=== PATIENT | female | born 2000 | race Caucasian/White ===

== ENCOUNTER 2023-09-04 10:01 | Emergency (ER) | payer OTHER, SELFPAY ==
[2023-09-04 10:06] VITALS: BP 133/93; PULSE 116; RESP 20; TEMP 37.2; O2SAT 98; BMI 34.7
[2023-09-04 10:24] LABS: Internal Control Within Normal Limits; Strep A Antigen Screen Negative
--- NOTE | 2023-09-04 11:01 | ED_ITS ---
HPI - General Adult General Chief complaint: Upper Respiratory Infection Stated complaint: SHORTNESS OF BREATH Time Seen by Provider: 09/04/23 10:05 Source: patient Mode of arrival: walk-in Limitations: no limitations History of Present Illness HPI narrative: Presenting with 48 hours history of bilateral ear pain associated with sore throat and change in her voice, the patient still able to hydrate and eat no [place] no vomiting that is acute at the moment no diarrhea The patient have no exposure to anybody with similar symptoms she did not record any fever at home Related Data Home Medications Medication Instructions Recorded Confirmed cefdinir 300 mg capsule 300 mg PO Q12H 09/04/23 09/04/23 escitalopram oxalate 10 mg tablet 10 mg PO DAILY 09/04/23 09/04/23 etonogestrel 0.12 mg-ethinyl See Rx Instructions vaginal 09/04/23 09/04/23 estradiol 0.015 mg/24 hr vaginal .COMPLEX ring (EluRyng) pantoprazole 40 mg tablet,delayed 40 mg PO DAILY 09/04/23 09/04/23 release Previous Rx's Medication Instructions Recorded amoxicillin 875 mg-potassium 1 tab PO Q12H #20 tabs 09/04/23 clavulanate 125 mg tablet Allergies Allergy/AdvReac Type Severity Reaction Status Date / Time No Known Drug Allergies Allergy Verified 09/04/23 10:05 Review of Systems ROS Status of ROS 10 or more systems reviewed and unremarkable except as noted in history and below PFSH PFS Social History Smoking status: Heavy tobacco smoker Exam Narrative Exam Narrative: Nurses notes and vital signs reviewed and patient is not hypoxic. General: Well-appearing and in no apparent distress. Skin: Warm, dry, no pallor noted. No rash. Head: Normocephalic, atraumatic. Neck: Supple, non-tender. Eye: Pupils are equal, round and EOMI. No scleral icterus. Ears, Nose, Mouth, and Throat: TM patient patient tympanic membrane shows bulging with serous fluid behind them in both sides the patient also had nasal congestion and the patient also had bilateral tonsillar erythema and exudate noted mostly on the left side although there is no uvula deviation Cardiovascular: Regular Rate and Rhythm without murmur, gallop or rub. Respiratory: No accessory muscle use or respiratory distress. Lungs are clear to auscultation, no wheezing, rales or rhonchi Chest Wall: no tenderness Back: No midline thoracic or lumbar vertebral tenderness. No CVA tenderness Musculoskeletal: normal ROM, no calf or popliteal tenderness, no lower extremity edema/swelling GI: Abdomen is soft, non-distended. Normal bowel sounds. No masses appreciated. No tenderness to palpation. No rebound, guarding, or rigidity noted. Neurological: A&O x4. No cranial nerve dysfunction observed. No truncal ataxia. Moves all extremities. Sensation intact. Psychiatric: Cooperative and interactive. Normal mood and affect. Constitutional Vital Signs, click to edit/add: Last Vital Signs Temp 98.9 F 09/04/23 10:06 Pulse 116 H 09/04/23 10:06 Resp 20 09/04/23 10:06 BP 133/93 H 09/04/23 10:06 Pulse Ox 98 09/04/23 10:06 Course Vital Signs Vital signs: Vital Signs Temperature 98.9 F 09/04/23 10:06 Pulse Rate 116 H 09/04/23 10:06 Respiratory Rate 20 09/04/23 10:06 Blood Pressure 133/93 H 09/04/23 10:06 Pulse Oximetry 98 09/04/23 10:06 Temperature 98.9 F 09/04/23 10:06 Pulse Rate 116 H 09/04/23 10:06 Respiratory Rate 20 09/04/23 10:06 Blood Pressure 133/93 H 09/04/23 10:06 Pulse Oximetry 98 09/04/23 10:06 Medical Decision Making [facility] Narrative Medical decision making narrative: The patient strep test is negative although her presentation is highly suspicious of strep tonsillitis she also have otitis media she will be treated with Augmentin It was noted that she already had cefdinir in her medication but she was instructed not to use cefdinir but use Augmentin at the moment The patient is to follow up with primary care physician in next 2-3 days or to return to the emergency department should any of the signs or symptoms worsen or new symptoms develop. The patient agrees with the following Diagnosis and Treatment plan and the patient will be discharged home. Lab Data Labs: Lab Results 09/04/23 Range/Units 10:10 Streptococcus Screen Negative Discharge Plan Discharge Chief Complaint: Upper Respiratory Infection Clinical Impression: Acute tonsillitis, Otitis media Patient Disposition: Home, Self-Care Time of Disposition Decision: 10:32 Condition: Good Mode of Transportation: Private Vehicle Prescriptions / Home Meds: New amoxicillin-pot clavulanate 875-125 mg tablet 1 tab PO Q12H Qty: 20 0RF No Action escitalopram oxalate 10 mg tablet 10 mg PO DAILY etonogestrel-ethinyl estradiol [EluRyng] 0.12-0.015 mg/24 hr ring See Rx Instructions VAGINAL .COMPLEX Rx Instructions: vaginally every three weks; pantoprazole 40 mg tablet,delayed release (DR/EC) 40 mg PO DAILY cefdinir 300 mg capsule 300 mg PO Q12H Instructions: Ear Infection (ED), Tonsillitis (ED) Stand Alone Forms: Portal Instructions Referrals: MANUEL GIBSON [Primary Care Provider] - 1 week Discharge Date/Time: 09/04/23 10:37
[2023-09-04 11:12] LABS: SARS-CoV-2 Ag NEGATIVE (NEGATIVE)
[2023-09-05 14:10] LABS: SARS-CoV-2 NAA INVALID (NOT DETECTE)
== END 2023-09-04 10:37 | disposition home or self-care (01) ==
PROVIDERS: Emergency Provider Emergency Medicine; PCP Nurse Practitioner Family
DX: J03.90 Acute tonsillitis, unspecified (principal); H66.90 Otitis media, unspecified, unspecified ear; Z79.899 Other long term (current) drug therapy; F17.210 Nicotine dependence, cigarettes, uncomplicated; Z20.822 Contact with and (suspected) exposure to COVID-19
CPT/HCPCS: 87070; 87635; 87811; 87880; 99283

== ENCOUNTER 2023-12-21 16:49 | Outpatient (RCR) | payer OTHER, SELFPAY | END 2023-12-22 13:04 | disposition home or self-care (01) | LOC: PT 16:49 | PROVIDERS: PCP Nurse Practitioner Family; Visit Provider Nurse Practitioner Family | DX: M54.9 Dorsalgia, unspecified (principal); G89.29 Other chronic pain | CPT/HCPCS: 97161 ==

== ENCOUNTER 2023-12-22 09:52 | Emergency (ER) | payer OTHER, SELFPAY ==
[2023-12-22 10:02] VITALS: BP 164/85; PULSE 80; RESP 18; TEMP 36.6; O2SAT 100; BMI 37.8
--- OUTSIDE RECORDS SUMMARY | 2023-12-22 10:17 | XMS_ITS | CCD ---
Author Name Unknown Address [id number] [place] [address] Organization [facility] Care Team Providers Care 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 Name Role Phone Kishor Fraga Unavailable Unavailable Federico Ashby Unavailable Unavail able Federico Ashby Unavailable Carey Gibson, USER SUPPORT ANALYST SUPERVISOR-C Lalitha Jeffers Primary Care Provider MD Christy Maher Jr Emergency Provider LALITHA GIBSON Primary Care Unavailable TRENA, DR FLANAGAN Attending Unavailable TRENA, DR FLANAGAN Admitting Unavailable TRENA, DR FLANAGAN Admitting Unavailable TRENA, DR FLANAGAN Consulting Unavailable LALITHA GIBSON Primary Care Unavailable TRENA, DR FLANAGAN Attending Unavailable TRENA, DR FLANAGAN Admitting Unavailable LALITHA GIBSON Primary Care Unavailable TRENA, DR FLANAGAN Attending Unavailable LALITHA GIBSON Primary Care Unavailable HERIBERTO, DR CHARLY Rushing Consulting Unavailable HERIBERTO, DR CHARLY Rushing Attending Unavailable HERIBERTO, DR CHARLY Rushing Admitting Unavailable Torres ROLLINS Referring Unavailable Unavailable Primary Care Provider UnavailLalitha Johnston Primary Care Provider CHRISTY DIAS Attending Unavailable LALITHA GIBSON Primary Care Unavailable Medications Current Medications Medication Drug Class(es) Dates Sig (Normalized) Sig (Original) acetaminophen 325 mg / HYDROcodone bitartrate 5 mg oral tablet (1 source) Opioid Agonist Start: 06-01-2022 take 1 tablet by mouth every six hours Hydrocodone-Acet aminophen Active 1 TAB PO Q6H 10 3 June 01, 2022 FLUoxetine 20 mg oral capsule (1 source) Serotonin Reuptake Inhibitor Start: 06-01-2022 take 20 mg by mouth once daily Fluoxetine Active 20 MG PO Daily June 01, 2022 12:00am ibuprofen 600 mg oral tablet (1 source) Nonsteroidal Anti-inflammatory Drug Start: 06-01-2022 take 600 mg by mouth every eight hours Ibuprofen Active 600 MG PO Q8H 20 June 01, 2022 12:00am Problems Active Problems Problem Classification Problem Date Documented Da te Episodic/Chronic Abdominal pain (4 sources) Left upper quadrant pain; Translations: [LEFT UPPER QUADRANT PAIN] Onset: 10-23-2022 Episodic Cardiac and circulatory congenital anomalies (2 sources) Coarctation of aorta; Translations: [Coarctation of aorta] Onset: 12-16-2023 12-16-2023 Chronic Coronary atherosclerosis and other heart disease (1 source) Presence of aortocoronary bypass graft; Translations: [Presence of aortocoronary bypass graft] Onset: 12-16-2023 Episodic Nausea and vomiting (1 source) Vomiting, unspecified; Translations: [VOMITING UNSPECIFIED] Onset: 10-24-2022 Episodic Sprains and strains (1 source) Sprain of ankle; Translations: [Sprain of unspecified ligament of right ankle, initial encounter] 06-01-2022 Episodic Substance-related disorders (1 source) Cannabis use, unspecified, uncomplicated; Translations: [CANNABIS USE UNS UNCOMPLICATED] Onset: 10-24-2022 Episodic Unclassified (1 source) New Patient Onset: 12-16-2023 Urinary tract infections (1 source) Urinary tract infection, site not specified; Translations: [UTI SITE NOT SPECIFIED] Onset: 10-24-2022 Episodic Past or Other Problems Problem Classification Problem Date Documented Da te Episodic/Chronic Residual codes; unclassified (4 sources) Other amnesia; Translations: [OTHER AMNESIA] Onset: 02-27-2022 Episodic Results Test Name Value Interpretation Reference Range Facility [facility] Documents[facility] 10-02-2023 [facility] Documents [id number] Normal [facility] Documentson 06-25-2023 [facility] Documents [id number]#[id number]:127 Normal [facility] CULTURE URINEon 10-23-2022 CULTURE URINE Culture Observations : NO GROWTH. Normal The [facility] Comment on above: Performed By: #### U RCX #### [facility] [address] [address] [address] Donald Schroeder ER URINE PROFILEon 2 Bilirubin Ql (U) MODERATE Abnormal NEGATIVE The [facility] Comment on above: Performed By: #### U MICRO, ERUR, PREGU #### [facility] [address] [address] [address] Donald Schroeder Clarity (U) CLEAR Normal CLEAR [facility] Comment on above: Performed By: #### U MICRO, ERUR, PREGU #### [facility] [address] [address] [address] Donald Schroeder Color (U) YELLOW Normal YELLOW [facility] Comment on above: Performed By: #### U MICRO, ERUR, PREGU #### [facility] [address] [address] [address] Donald JARRETTAHD A micrscopic examina tion will be performed if indicated. Normal [facility] Comment on above: Performed By: #### U MICRO, ERUR, PREGU #### [facility] [address] [address] [address] Donald Schroeder Glucose Ql (U) Negative Normal NEGATIVE The [facility] Comment on above: Performed By: #### U MICRO, ERUR, PREGU #### [facility] [address] [address] [address] Donald Schroeder Hemoglobin Ql (U) Negative Normal NEGATIVE The [facility] Comment on above: Performed By: #### U MICRO, ERUR, PREGU #### [facility] [address] [address] [address] Donald Schroeder Ketones Ql (U) TRACE Abnormal NEGATIVE The [facility] Comment on above: Performed By: #### U MICRO, ERUR, PREGU #### [facility] [address] [address] [address] Donald Schroeder LEUKOCYTES Negative Normal NEGATIVE [facility] Comment on above: Performed By: #### U MICRO, ERUR, PREGU #### [facility] [address] [address] [address] Donald Schroeder Nitrite Ql (U) Negative Normal NEGATIVE The [facility] Comment on above: Performed By: #### U MICRO, ERUR, PREGU #### [facility] [address] [address] [address] Donald Schroeder pH (U) 5.0 [pH] Normal 5-9 [facility] Comment on above: Performed By: #### U MICRO, ERUR, PREGU #### [facility] [address] [place] [address] Dr. Donald Schroeder Protein (U) [Mass/Vol] 30 mg/dL Abnormal NEGATIVE/ TRACE The [facility] Comment on above: Performed By: #### U MICRO, ERUR, PREGU #### [facility] [address] [place] [address] Dr. Donald Schroeder SPEC GRAVITY >=1.030 Abnormal 1.005-<=1.0 25 [facility] Comment on above: Performed By: #### U MICRO, ERUR, PREGU #### [facility] [address] [place] [address] Dr. Donald Schroeder UR MICRO IND INDICATED Normal [facility] Comment on above: Performed By: #### U MICRO, ERUR, PREGU #### [facility] [address] [place] [address] Dr. Donald Schroeder Urobilinogen Qn (U) 1.0 {Miguelina'U}/dL Normal 0.2 - 1.0 The [facility] Comment on above: Performed By: #### U MICRO, ERUR, PREGU #### [facility] [address] [place] [address] Dr. Donald Schroeder URon 10-23-2022 , QUAL Negative Normal NEGATIVE The [facility] Comment on above: Performed By: #### U MICRO, ERUR, PREGU #### [facility] [address] [place] [address] Dr. Donald Schroeder URINE MICROSCOPIC ONLYon BACTERIA MODERATE Abnormal NONE SEEN The [facility] Comment on above: Performed By: #### U MICRO, ERUR, PREGU #### [facility] [address] [place] [address] Dr. Donald Schroeder Bacteria identified Cx Nom (U) INDICATED Normal [facility] Comment on above: Performed By: #### U MICRO, ERUR, PREGU #### [facility] [address] [address] [address] Donald Schroeder CAST SEEN Abnormal NONE SEEN [facility] Comment on above: Performed By: #### U MICRO, ERUR, PREGU #### [facility] [address] [place] [address] Dr. Donald Schroeder Crystals LM Nom (Urine sed) NONE SEEN Normal NONE SEEN The [facility] Comment on above: Performed By: #### U MICRO, ERUR, PREGU #### [facility] [address] [place] [address] Dr. Donald Schroeder Epithelial cells LM Ql (Urine sed) FEW Abnormal NONE SEEN /RARE The [facility] Comment on above: Performed By: #### U MICRO, ERUR, PREGU #### [facility] [address] [place] [address] Dr. Donald Schroeder HYALINE CAST RARE Normal The [facility] Comment on above: Performed By: #### U MICRO, ERUR, PREGU #### [facility] [address] [place] [address] Dr. Dnoald Schroeder MUCOUS MODERATE Abnormal NONE SEEN The [facility] Comment on above: Performed By: #### U MICRO, ERUR, PREGU #### [facility] [address] [place] [address] Dr. Donald Schroeder RBC 2-5 Abnormal 0-2 The [facility] Comment on above: Performed By: #### U MICRO, ERUR, PREGU #### [facility] [address] [place] [address] Dr. Donald Schroeder WBC 5-10 Abnormal NONE SEEN The [facility] Comment on above: Performed By: #### U MICRO, ERUR, PREGU #### [facility] [address] [place] [address] Dr. Donald Schroeder XR ankle RT min 3V*on 2021 XR ankle RT min 3V* [facility] [place] [address] [place] [address] XRay Report Signed Patient: Betsy Sawyer MR#: [id number] 26 : 2000 Acct:[id number] Age/Sex: 21 / F ADM Date: 06/01/22 Loc: ER Room: Type: [facility] ER Attending Dr: Copies to: Christy Maher Jr, MD Ordering Provider: Christy Maher Jr, MD Date of Service: 06/01/22 XR/XR ankle RT min 3V*: Extremity Injury, Lower 3views Rightankle COMPARISON:None HISTORY: RIGHT ankle injury. Swelling. There is lateral soft tissue prominence. No fracture or dislocation seen. Ankle mortise preserved. XR/XR ankle RT min 3V* IMPRESSION: No acute fracture. Impression dictated by: Osman Polanco M.D.06/02/2022 8:43 AM Dictation Location: [place] [address] Transcribed By: [facility] 06/02/22 0843 Dictated By: Osman Polanco DO 06/02/22 0841 Signed By: 06/02/22 0843 Normal [facility] TSHon 02-27-2022 TSH 1.662 uIU/mL Normal 0.470-4.680 [facility] Comment on above: Performed By: #### T SH #### [facility] [address] [place] [address] Dr. Donald Schroeder TSH RANGE SEE BELOW Normal [facility] Comment on above: Result Comment: <0.3 4 UIU/ml HYPERTHYROID 0.34-5.60 UIU/ml EUTHYROID >5.60 UIU/ml HYPOTHYROID Performed By: #### T SH #### [facility] [address] [place] [address] Dr. Donald Schroedre VIT B12 AND FOLATEon 022 Cobalamin (Vitamin B12) [Mass/Vol] 269.0 pg/mL Normal 239.0-931.0 [facility] Comment on above: Performed By: #### B 12FOL #### [facility] [address] [address] [address] Donald Schroeder FOLATE 19.80 ng/mL Normal 8.60-58.90 [facility] Comment on above: Performed By: #### B 12FOL #### [facility] [address] [address] [address] Donald Schroeder Echocardiogram - PEDSon 06- Echocardiogram - PEDS RBC [facility] Pediatric Echo/ [id number] [facility] , [address], [place] [address] Patient Name: BETSY SAWYER [facility] Date: 04[facility]14[facility] Patient Status: OutpatientMRN/PID: [id number] Study Type: Echocardiogram - PEDSDate of : 2000 17 years Height/Weight: 165.00 cm / 84.10 kgGender: F BSA: 1.91 m2 Blood Pressure: 130 / 78 mmHgReading Physician: Maricel Luke MDRequested By: Kishor Fraga MDSonographer: Rachel Lombardo [facility] Diagnosis/ICD: Q25.1-Coarctation of aorta Indications: Coarctation s/p repair Procedure/CPT: 38451 Echocardiography-TTE Congenital Complete OR;73005 Echocardiography-Color Doppler Echo;69867 Echocardiography-Doppler Echo History:Co arctation of the aorta status post repair with primary end-to-end anastamosis (06/25/2005). Summary:Complete echocardiogram examination with two-dimensional imaging, M-mode, color-Doppler, and spectral Doppler was performed. 1. Trivial mitral valve regurgitation.2. Normal right ventricular size and systolic function.3. Left ventricular systolic function is hyperdynamic. Ejection fraction, calculated from the m-mode parasternal view, is 75 %. Qualitatively normal left ventricular size in the setting of a mildly increased left ventricular mass. Normal left ventricular mass indexed to heigh to the power of 2.7. There is a false tendon at the left ventricular apex without evidence of obstruction to flow.4. The area of coarctation repair is widely patent by two-dimensional and color Doppler imaging. Flow acceleration through the aortic arch starts at the level of the transverse aorta which is mildly hypoplastic. The peak gradient through the aortic arch is 26 mmHg, mean gradient 14 mmHg.Segmental Anatomy, Cardiac Position and Situs:{S,D,S}. The heart position is within the left hemithorax. The cardiac apex is oriented leftward. The aorta is to the right of the pulmonary artery.Systemic Veins:The superior vena cava is right-sided and drains normally to the right atrium.Pulmonary Veins:One right-sided pulmonary vein is seen entering the left atrium.Atria:Imaging is inadequate to rule out an atrial septal defect. The right atrium is normal in size. The left atrium is normal in size.Mitral Valve:The mitral valve is normal. Normal mitral valve Doppler pattern. There is no evidence of mitral valve stenosis. The papillary muscle configuration appears normal. There is trivial mitral valve regurgitation.Tricuspid Valve:The tricuspid valve is normal. Normal tricuspid valve Doppler pattern. There is trivial tricuspid valve regurgitation. There is no evidence of tricuspid valve stenosis. Unable to estimate the right ventricular systolic pressure from the tricuspid regurgitant jet.Left Ventricle:Left ventricular systolic function is hyperdynamic. Ejection fraction, calculated from the m-mode parasternal view, is 75 %. Qualitatively normal left ventricular size in the setting of a mildly increased left ventricular mass. Normal left ventricular mass indexed to heigh to the power of 2.7. There is a false tendon at the left ventricular apex without evidence of obstruction to flow.Right Ventricle:Qualitatively normal right ventricular size and normal systolic function.Ventricular Septum:Imaging is inadequate to rule out a ventricular septal defect, but no defect seen.Aortic Valve:The aortic valve is normal and tricommissural. Normal aortic valve Doppler pattern. There is no aortic valve stenosis. There is no aortic valve regurgitation.Left Ventricular Outflow Tract:There is no left ventricular outflow tract obstruction.Pulmonary Valve:The pulmonary valve is normal. Normal pulmonary valve Doppler pattern. There is no pulmonary valve stenosis. There is no pulmonary valve regurgitation.Right Ventricular Outflow Tract:There is no right ventricular outflow tract obstruction.Aorta:The aortic root is normal in size. Left aortic arch with normal branching. There is a normal sized ascending aorta. There is normal Doppler pattern in the aorta. The area of coarctation repair is widely patent by two-dimensional and color Doppler imaging. Flow acceleration through the aortic arch starts at the level of the transverse aorta which is mildly hypoplastic. The peak gradient through the aortic arch is 26 mmHg, mean gradient 14 mmHg.Coronary Arteries:The coronary arteries were not evaluated.Pericardium:There is no pericardial effusion. LV (M-mode) Z-scoreIVSd: 0.87 cm -0.98LVIDd: 5.00 cm -0.58LVIDs: 2.79 cm -1.56LVPWd: 0.70 cm -1.96LV mass (ASE valentino.): 131.77 g -1.83LV mass index: 42.42 g/m2.7 LV (2D)LV epi area, d: 30.89 cm2LV endo area, d: 19.57 cm2LV major d, A4C: 8.03 cmLV mass (AL): 96.83 gLV mass index: 50.57 g/m2 Left Ventricular Systolic Function LV SF (M-mode): 44 % 2D measurements Z-scoreAortic Valve Annulus: 1.86 cm -1.76Aorta Root s: 2.50 cm -1.43Ascending Aorta: 2.44 cm -0.76Transverse Aorta: 1.01 cm -3.82 Time out was performed prior to the echocardiogram. The patient was identified by name, medical record number and date of . Maricel Luke MD*Electronically signed on 04/14/2018 at 12:15:52 PM Final Normal [facility] Peds Cardiology - 4- y/oon 04-14-2018 Peds Cardiology - 89 y/o Chief ComplaintNew patient visit, S/P coar repair. Accompanied by mother. History of Present IllnessBetsy Sawyer is a 17 year old female who was referred by Dr. Stoll to the [facility] of [facility] for evaluation of elevated blood pressure, s/p coarctation of aorta repair. Betsy is accompanied today by her mother. I have reviewed the available medical record as it pertains to the chief complaint and have summarized the pertinent information in this HPI. Specifically, Betsy's mother reports elevated blood pressure noted in the past 2 weeks. On April 09, Betsy had complaints of chest tightness, mild shortness of breath and feeling her heart pulsing at rest, mother took her blood pressure and it was recorded to be 159/75. Mother repeated Betsy's blood pressure on 04/13/18 and it was noted to be 135/88. Mother reports Andrew blood pressure has not been elevated recently at PCP appointments, last seen by PCP last year. Per report, Betsy also has shortness of breath with activity, which has worsened in the last 1-2 months. Per report, Betsy is not very physically active, but has noticed increased shortness of breath while jumping on trampoline. Mother notes Betsy has had recent weight gain. Per report, Betsy has has a single episode of palpitations which was associated with dizziness, had a sudden onset, last >5 minutes with sudden stop. Betsy has a past history of coarctation of aorta repair at age 4 at [facility]. Betsy was followed by Dr. Romero post surgery until 2007 when mother transferred care to [place] as it is closer to their home. Mother cannot remember the name of the sample book maker in [place], but was told to follow up in 5 years, mother states it has been >5 years since last cardiology appointment. Per report, Betsy was on antihypertensives post repair until age 5 when blood pressure normalized and Betsy has not been on medication since. Betsy denies additional complaints of or signs of symptoms related to the cardiovascular system, specifically chest pains either at rest or with exertion, syncope, near syncope, or a decreased tolerance to activity. Patients parent denies a history of difficulty with feeds, growth, or meeting milestones as an . History: Previous Hospitalizations: None Previous Surgeries: Coarctation of aorta repair 2003Other Chronic Conditions: None Medications: IUDAllergies: No known drug allergies Social History: Lives with motherSiblings: Family History: Mother, father, maternal grandmother and maternal grandfather with hypertension. 3 paternal uncles with history of strokes. Paternal great uncle with history of heart transplant, mother unsure of diagnosis, great uncle after heart transplant. There is no significant family history of heart attacks below 50 years of age, and no known early coronary artery disease in a first degree relative. There is no known family history of congenital heart disease, sudden cardiac or unexplained , seizures, congenital deafness, arrhythmias, pacemakers, defibrillators, cardiomyopathy, or known Long QT. I have reviewed the available medical records as they pertain to her preventive cardiovascular health and have questioned the parents as appropriate regarding her preventive cardiovascular health. Specifically:1. Blood Pressure- Her blood pressure today is normal on manual recheck and plots to less than the 95th percentile for age/height. No historical blood pressure measurements are very available for review.2. Lipid Screening- She has not undergone appropriate lipid screening per the current universal screening guidelines and as endorsed by the AAP. I have provided a requisition for a fasting lipid panel to be obtained at the family's convenience.3. BMI- Her BMI plots to greater than the 95th percentile. A healthy diet and exercise regimen were discussed as part of a healthy lifestyle. There are no historical blood pressure measurements available for review. Review of SystemsPlease see scanned patient intake form for full 10 system review of systems. Of note, Goins with complaints of weight gain, shortness of breath, irregular heart beat and dizziness as described in HPI. All other systems were negative Active Problems S/P repair of coarctation of aorta (V13.65) (Z87.74) Surgical History History of Aortic Coarctation Repair Family History Family history of hypertension (V17.49) (Z82.49) Family history of hypertension (V17.49) (Z82.49) Family history of hypertension (V17.49) (Z82.49) Family history of hypertension (V17.49) (Z82.49) Social History Completed 11th grade Lives with mother Allergies No Known Drug Allergies Recorded By: Astrid Holder; 04/14/2018 11:34:18 AM Current Meds No Reported Medications Recorded RADHA = N; Record; Last Updated By: Astrid Holder; 04/14/2018 11:34:18 AM Vitals Vital Signs Printed in Appendix #1 below. Physical ExamConstitutional: General appearance: Abnormal. Obese female. Head, Eyes, Ears, Nose and Throat: Grossly normal Neck: Supple, no significant adenopathy. Chest: Lungs clear to auscultation bilaterally. No crackles or rhonchi noted. Cardiovascular: The heart rate was normal. The rhythm was regular. normal S1, normal S2, no gallop, no S3, no S4 and no click. Murmur Detail: no murmurs were heard. Extremities: normal 2+ radial pulses bilaterally. no edema. normal capillary refill. Abdomen:. soft, non-tender, no masses. no hepatomegaly. Exam somewhat limited by body habitus. Musculoskeletal: muscle strength and tone is normal. Skin: no significant rash or lesions. Psychiatric: normal parent/child interaction. an ECHO was done, see scanned results. Results/Data Echocardiogram - [id number] 11:09Kishor Abbott Test NameResultFlagReferencePeds Echocardiogram(Report)1.3.12.2 .[id number] [facility] Pediatric Echo/ Lab [address] [facility] , [address], [place] [address] Patient Name: BETSY SAWYER Study Location: [facility] Study Date: 04/14/2018 Patient Status: Outpatient MRN/PID: [id number] Study Type: Echocardiogram - PEDS Date of : 2000 Age: 17 years Height/Weight: 165.00 cm / 84.10 kg Gender: F BSA: 1.91 m2 Blood Pressure: 130 / 78 mmHg Reading Physician: Maricel Luke MD Requested By: Kishor Fraga MD Bag Printer: Rachel Lombardo [facility] Diagnosis/ICD: Q25.1-Coarctation of aorta Indications: Coarctation s/p repair Procedure/CPT: 31543 Echocardiography-TTE Congenital Complete OR;04716 Echocardiography-Color Doppler Echo;74738 Echocardiography-Doppler Echo History: Coarctation of the aorta status post repair with primary end-to-end anastamosis (06/25/2005). Summary: Complete echocardiogram examination with two-dimensional imaging, M-mode, color-Doppler, and spectral Doppler was performed. 1. Trivial mitral valve regurgitation. 2. Normal right ventricular size and systolic function. 3. Left ventricular systolic function is hyperdynamic. Ejection fraction, calculated from the m-mode parasternal view, is 75 %. Qualitatively normal left ventricular size in the setting of a mildly increased left ventricular mass. Normal left ventricular mass indexed to heigh to the power of 2.7. There is a false tendon at the left ventricular apex without evidence of obstruction to flow. 4. The area of coarctation repair is widely patent by two-dimensional and color Doppler imaging. Flow acceleration through the aortic arch starts at the level of the transverse aorta which is mildly hypoplastic. The peak gradient through the aortic arch is 26 mmHg, mean gradient 14 mmHg. Segmental Anatomy, Cardiac Position and Situs: {S,D,S}. The heart position is within the left hemithorax. The cardiac apex is oriented leftward. The aorta is to the right of the pulmonary artery. Systemic Veins: The superior vena cava is right-sided and drains normally to the right atrium. Pulmonary Veins: One right-sided pulmonary vein is seen entering the left atrium. Atria: Imaging is inadequate to rule out an atrial septal defect. The right atrium is normal in size. The left atrium is normal in size. Mitral Valve: The mitral valve is normal. Normal mitral valve Doppler pattern. There is no evidence of mitral valve stenosis. The papillary muscle configuration appears normal. There is trivial mitral valve regurgitation. Tricuspid Valve: The tricuspid valve is normal. Normal tricuspid valve Doppler pattern. There is trivial tricuspid valve regurgitation. There is no evidence of tricuspid valve stenosis. Unable to estimate the right ventricular systolic pressure from the tricuspid regurgitant jet. Left Ventricle: Left ventricular systolic function is hyperdynamic. Ejection fraction, calculated from the m-mode parasternal view, is 75 %. Qualitatively normal left ventricular size in the setting of a mildly increased left ventricular mass. Normal left ventricular mass indexed to heigh to the power of 2.7. There is a false tendon at the left ventricular apex without evidence of obstruction to flow. Right Ventricle: Qualitatively normal right ventricular size and normal systolic function. Ventricular Septum: Imaging is inadequate to rule out a ventricular septal defect, but no defect seen. Aortic Valve: The aortic valve is normal and tricommissural. Normal aortic valve Doppler pattern. There is no aortic valve stenosis. There is no aortic valve regurgitation. Left Ventricular Outflow Tract: There is no left ventricular outflow tract obstruction. Pulmonary Valve: The pulmonary valve is normal. Normal pulmonary valve Doppler pattern. There is no pulmonary valve stenosis. There is no pulmonary valve regurgitation. Right Ventricular Outflow Tract: There is no right ventricular outflow tract obstruction. Aorta: The aortic root is normal in size. Left aortic arch with normal branching. There is a normal sized ascending aorta. There is normal Doppler pattern in the aorta. The area of coarctation repair is widely patent by two-dimensional and color Doppler imaging. Flow acceleration through the aortic arch starts at the level of the transverse aorta which is mildly hypoplastic. The peak gradient through the aortic arch is 26 mmHg, mean gradient 14 mmHg. Coronary Arteries: The coronary arteries were not evaluated. Pericardium: There is no pericardial effusion. LV (M-mode) Z-score IVSd: 0.87 cm -0.98 LVIDd: 5.00 cm -0.58 LVIDs: 2.79 cm -1.56 LVPWd: 0.70 cm -1.96 LV mass (ASE valentino.): 131.77 g -1.83 LV mass index: 42.42 g/m2.7 LV (2D) LV epi area, d: 30.89 cm2 LV endo area, d: 19.57 cm2 LV major d, A4C: 8.03 cm LV mass (AL): 96.83 g LV mass index: 50.57 g/m2 Left Ventricular Systolic Function LV SF (M-mode): 44 % 2D measurements Z-score Aortic Valve Annulus: 1.86 cm -1.76 Aorta Root s: 2.50 cm -1.43 Ascending Aorta: 2.44 cm -0.76 Transverse Aorta: 1.01 cm -3.82 Time out was performed prior to the echocardiogram. The patient was identified by name, medical record number and date of . Maricel Luke MD *Electronically signed on 04/14/2018 at 12:15:52 PM Final #1 echocardiogramAn echocardiogram was indicated at today's visit.The indication for this study was: History of coarctation of the aortaI have personally reviewed the obtained images and it is my personal preliminary interpretation that the study demonstrates the following:- The aortic arch and isthmus appear widely patent with no evidence of obstruction- The left ventricle appears qualitatively normal in terms of its size- Otherwise normal cardiac structure and function Diagnoses/Problems S/P repair of coarctation of aorta (V13.65) (Z87.74) Palpitations (785.1) (R00.2) Orders Avoid foods and beverages that contain caffeine.; Status:Complete - RetrospectiveAuthorization; Done: 14Apr2018 Last Updated By:Astrid Holder; 04/14/2018 11:32:46 AM;Ordered; For:Health Maintenance; Ordered By:Kishor Fraga; Lipid Panel; Source:Blood ([facility]); Status:Active; Requested for:14Apr2018; Perform:Lab Services - Lab To Draw (Blood Test); Due:[id number];Ordered; For:Health Maintenance; Ordered By:Kishor Fraga; Provider Impressions#1 history of coarctation of the aorta (status post repair)#2 elevated blood pressure measurements without diagnosis of hypertension#3 palpitationsWith regard to her single episode of palpitations, given that it only occurred one time and that her tachycardia experienced a gradual offset with no other associated symptoms I do not believe that this is particularly suspicious for an arrhythmia. Accordingly, I have recommended that we continue to monitor her for recurrence and if she experiences another episode I will consider ECG monitoring at that time. She should notify my office of any recurrence of these symptoms.With regard to her recent elevated blood pressure measurements, I have some suspicion that this may be due to poor blood pressure cuff calibration of her home blood pressure cuff. Her blood pressure today on manual recheck was well within normal limits. I have advised them to check the calibration on her home cuff and to notify me if they continue to have elevated blood pressure readings despite appropriate calibration. If they continue have elevated blood pressure readings I will recommend proceeding with an ambulatory blood pressure monitor to accurately assess her blood pressure in the home setting before considering medication management. Her mother should keep a log of her blood pressures at home and send them to me in the next 2-3 weeks for review.With regard to her coarctation of the aorta, her echocardiogram today demonstrates a widely patent aortic arch and isthmus with no significant obstruction. In addition, her left ventricle appears normal in terms of its size and function. Accordingly, I'll plan to see her back in one year for a repeat evaluation and echocardiogram to reassess her aortic arch. If her blood pressure necessitates earlier follow-up and we will arrange that as indicated. If she develops any concerning signs, symptoms or questions in the interim I'll be happy to see her sooner for a repeat evaluation as well.Plan:- No SBE is prophylaxis is indicated based on current guidelines- No activity restrictions are indicated- Lipid Screening is indicated and I have provided a requisition so that a fasting lipid panel will be obtained at the family's convenience.- Please make sure you're home blood pressure cuff is calibrated appropriately- Please keep a log of blood pressures over the next 2-3 weeks and then contact me with the results of that I may review them personally- If home blood pressures remain elevated then I will likely recommend ambulatory blood pressure monitoring to accurately evaluate her blood pressures.- I will plan to see her back in one year for a repeat evaluation and echocardiogram or sooner if her blood pressure necessitates earlier evaluation. In addition, she develops any concerning signs, symptoms or questions are be happy to see her sooner for a repeat evaluation as well.- Please notify my office if you develop recurrence of your palpitations so that appropriate workup can be undertaken.- Please consume a healthy diet and participate in regular physical activity as part of a heart healthy lifestyle.- Please contact my office with any concerns or questions Patient Discussion/Summary#1 history of coarctation of the aorta (status post repair)#2 elevated blood pressure measurements without diagnosis of hypertension#3 palpitationsWith regard to her single episode of palpitations, given that it only occurred one time and that her tachycardia experienced a gradual offset with no other associated symptoms I do not believe that this is particularly suspicious for an arrhythmia. Accordingly, I have recommended that we continue to monitor her for recurrence and if she experiences another episode I will consider ECG monitoring at that time. She should notify my office of any recurrence of these symptoms.With regard to her recent elevated blood pressure measurements, I have some suspicion that this may be due to poor blood pressure cuff calibration of her home blood pressure cuff. Her blood pressure today on manual recheck was well within normal limits. I have advised them to check the calibration on her home cuff and to notify me if they continue to have elevated blood pressure readings despite appropriate calibration. If they continue have elevated blood pressure readings I will recommend proceeding with an ambulatory blood pressure monitor to accurately assess her blood pressure in the home setting before considering medication management. Her mother should keep a log of her blood pressures at home and send them to me in the next 2-3 weeks for review.With regard to her coarctation of the aorta, her echocardiogram today demonstrates a widely patent aortic arch and isthmus with no significant obstruction. In addition, her left ventricle appears normal in terms of its size and function. Accordingly, I'll plan to see her back in one year for a repeat evaluation and echocardiogram to reassess her aortic arch. If her blood pressure necessitates earlier follow-up and we will arrange that as indicated. If she develops any concerning signs, symptoms or questions in the interim I'll be happy to see her sooner for a repeat evaluation as well.Plan:- No SBE is prophylaxis is indicated based on current guidelines- No activity restrictions are indicated- Lipid Screening is indicated and I have provided a requisition so that a fasting lipid panel will be obtained at the family's convenience.- Please make sure you're home blood pressure cuff is calibrated appropriately- Please keep a log of blood pressures over the next 2-3 weeks and then contact me with the results of that I may review them personally- If home blood pressures remain elevated then I will likely recommend ambulatory blood pressure monitoring to accurately evaluate her blood pressures.- I will plan to see her back in one year for a repeat evaluation and echocardiogram or sooner if her blood pressure necessitates earlier evaluation. In addition, she develops any concerning signs, symptoms or questions are be happy to see her sooner for a repeat evaluation as well.- Please notify my office if you develop recurrence of your palpitations so that appropriate workup can be undertaken.- Please consume a healthy diet and participate in regular physical activity as part of a heart healthy lifestyle.- Please contact my office with any concerns or questions. End of Encounter MedsNo Reported Medications Recorded Signatures Electronically signed by : Kishor Fraga MD; Apr 14 2018 5:49PM EST (Author)Appendix #1 Vital Signs Patient: BETSY SAWYER; : 2000; Recorded: 14Apr2018 11:45AMRecorded: 14Apr2018 10:43AMRecorded: 14Apr2018 10:41AMHeart Edwq51Wkajfyogctp37Bbifpsth489 , GGK111, LLE, Vylpqw678, RUE, RysowfiKfttmxeuh98, RUE70, LLE, Fpihcz51, RUE, SittingHeight5 ft 5.16 loVicusu387 lb 6.50 ozBMI Bsirkdmidk43.7BSA Calculated1.92BMI Strfywacrp54 %2-20 Stature Stklyydyjq72 %2-20 Weight Xnyqgnzrgo05 %O2 Dhtzpwljrt75 [facility] Vital Signs Date Time Vital Sign Value Performing Clinician Kailee zepeda 12-16-2023 13:55-0500 Body height 167.6 cm Christy Dias MD [facility] Phone: [facility] 12-16-2023 13:55-0500 Body mass index (BMI) [Ratio] 39.54 kg/m2 Christ[facility] Dias MD [facility] 12-16-2023 13:55-0500 Body weight 111.13 kg Christy Dias MD Work Phone: [facility] 12-16-2023 13:55-0500 Diastolic blood pressure 70 mm[Hg] Christy Dias MD Work Phone: [facility] 12-16-2023 13:55-0500 Heart rate 103 /min Christy Dias MD Work Phone: [facility] 12-16-2023 13:55-0500 SaO2% (BldA) [Mass fraction] 100 % Christy Dias MD Work Phone: [facility] [employer] [facility] 12-16-2023 13:55-0500 Systolic blood pressure 90 mm[Hg] Christy Dias MD Work Phone: [facility] 06-01-2022 23:36-0400 Body temperature 98.4 [degF] USER SUPPORT ANALYST SUPERVISOR-C Lalitha Kayla Work Phone: [facility] 06-01-2022 23:36-0400 Diastolic blood pressure 80 mm[Hg] USER SUPPORT ANALYST SUPERVISOR-C Lalitha Kayla Work Phone: [facility] 06-01-2022 23:36-0400 Heart rate 80 /min USER SUPPORT ANALYST SUPERVISOR-C Lalitha Kayla Work Phone: [facility] 06-01-2022 23:36-0400 Respiratory rate 20 /min USER SUPPORT ANALYST SUPERVISOR-C Lalitha Kayla Work Phone: [facility] 06-01-2022 23:36-0400 SaO2% (BldA) [Mass fraction] 98 % USER SUPPORT ANALYST SUPERVISOR-C Lalitha Kayla Work Phone: [facility] 06-01-2022 23:36-0400 Systolic blood pressure 166 mm[Hg] USER SUPPORT ANALYST SUPERVISOR-C Lalitha Kayla Work Phone: [facility] Encounters Encounter Date Encounter Type Care Provider Facility Start: 12-16-2023 End: [facility] Start: 12-16-2023 End: 12-16-2023 Office consultation new/estab patient 40 min Christy Dias MD Work Phone: [facility] Comment on above: Hx of CABG (Primary Dx); Coarctation of aorta Start: 12-15-2023 Chart abstracting Scanning Pro vider External [facility] Start: 12-15-2023 Telephone encounter Donna Hughes [facility] Start: 11-26-2023 Telephone encounter Isela beltran [facility] Start: 09-28-2023 ambulatory Facility[facility] Start: 06-16-2023 ambulatory Torresdes ROLLINS Facility: [facility] Start: 10-23-2022 End: 10-23-2022 ambulatory LALITHA GISBON Facility:[facility] Start: 06-01-2022 End: 06-02-2022 Emergency department patient visit USER SUPPORT ANALYST SUPERVISOR-Valerie Gibson Work Phone: [facility] Start: 03-25-2022 ambulatory LALITHA GIBSON Facility: [facility] Start: 02-27-2022 End: 02-28-[address] MASHA ALBRECHT Facility:[facility] Start: 04-14-2018 Ambulatory Kishor Fraga Facil [id number] Procedures Date Procedure Procedure Detail Performing Clinician Start: 12-16-2023 Ecg routine ecg w/le ast 12 lds w/i&r Christy Dias MD Work Phone: Start: 06-01-2022 X-ray of right ankle USER SUPPORT ANALYST SUPERVISOR -Valerie Lalitha Gibson Work Phone: History of coronary artery bypass grafting Hx of CABG Christy Dias MD Work Phone: Plan of Treatment Date Care Activity Detail Author Start: 12-16-2024 Adult BMI Screening [facility] Start: 12-16-2024 Tobacco Screening [facility]ening [facility] Start: 01-20-2024 End: 01-20-2024 Patient encounter procedure [facility] Start: 12-16-2023 End: 12-16-2024 Echo complete W/O contrast Echo complete W/O contrast Echocardiography Routine Coarctation of aorta Expected: 12/16/2023, Expires: 12/16/2024 [employer] Work Phone: Comment on above: Expected: 12/16/2023 , Expires: 12/16/2024 Start: 12-16-2023 End: 12-16-2024 Holter monitor study Holter monitor 24-48 hour Cardiac Services Routine Coarctation of aorta Expected: 12/16/2023, Expires: 12/16/2024 [facility] Comment on above: Expected: 12/16/2023 , Expires: 12/16/2024 Start: 12-16-2023 End: 12-16-2023 Patient encounter procedure 12/16/2023 2:00 PM EST Office Visit [facility] [address] [place] [address] Christy Dias MD [address] [facility] [place] [address] [facility] Start: 07-03-2023 Influenza vaccination Influenza Vaccine [facility] Start: 06-21-2023 DTaP,Tdap and Td Vaccines (6 - Td or Tdap) DTaP,Tdap and Td Vaccines (6 - Td or Tdap) [facility] Start: 2022 Screening for malignant neoplasm of cervix Pap Smear [facility] Start: 2020 DTaP,Tdap and Td Vaccines (1 - Tdap) DTaP,Tdap and Td Vaccines (1 - Tdap) [facility] Start: 2019 Adult BMI Follow Up Plan Adult BMI Follow Up Plan [facility] Start: 2019 Adult BMI Screening Adult BMI Screen ing [facility] Start: 2013 [facility]: [facility] Tobacco Screening Tobacco Screening [facility] Start: 2001 Tobacco Counseling Tobacco Counselin g [facility] Patient Education How to Use Cru tches Walking Boot Ankle Sprain ED [facility] Work Phone: Patient referral [facility] Work Phone: POCT EKG POCT EKG ECG Rou isidra Hx of CABG 12/16/2023 [facility] Immunizations Immunization Date Immunization Notes Care Provider Fa cility 08-04-2017 influenza virus vaccine, unspecified formulation Christy Dias MD Work Phone: [facility] Payers Date Payer Category Payer Medicaid [employer] HMO [id number] 2023-Present [phone] [address] [place] [address] [id number] 2023 Medicaid [id number] 2000 Unknown [id number] 2001 Unknown [id number] 2001 Unknown [id number] 2001 Unknown [id number] 2001 Unknown [id number] 1972 Unknown [id number] 1959 Unknown [id number] 1959 Unknown [id number] Department of Defe e ( and others) [facility] Net [employer]Sta [id number] Self-pay Self Pay [id number] Unknown Insurance No Card [id number] Social History Date Type Detail Facility Start: 06-01-2022 Tobacco smoking status SDIS Never smoked tobacco (finding) [facility] Start: 2000 Sex Assigned At Female F [facility] Tobacco smoking status [facility] Tobacco smoking consumption unknown [facility] Start: 2000 Sex Assigned At Not on file P [facility] Start: 12-15-2023 End: 12-16-2023 Gender identity Not on file [facility] Start: 12-15-2023 Tobacco smoking status NHIS Smokes tobacco daily [facility] History of tobacco use Cigarette Smoker [facility] Start: 12-15-2023 Tobacco use and exposure Smokeless tobacco non-user [facility] Start: 12-15-2023 End: 12-16-2023 History of Social function [facility] Start: 12-16-2023 Alcohol intake Lifetime non-d ulisses (finding) [facility] Within the past 12 months we worried whether our food would run out before we got money to buy more. Never True [facility] Clinical Notes 11-26-2023 to 12-16-2023 Christy Dias MD - 12/16/2023 2:00 PM CRYSTALMelelise Fu LPN - 12/16/2023 2:00 PM ESTPatient InstructionsTelephone Encounter - Donna Eduardo MA - 12/15/2023 10:31 AM EST Note Date & Type Note Facility 12-16-2023 History of Presen t illness Narrative Betsy Sawyer Date of visit: 12/16/2023 Date of : 2000 Age: 23 y.o. There is no problem list on file for this patient. No Known Allergies No current outpatient medications on file. No current facility-administered medications for this visit. Chief Complaint Patient presents with New Patient USER SUPPORT ANALYST SUPERVISOR PT STATES SHE HAD OPEN HEART SURGERY @ AGE 3 RAINBOW BABIES NO TESTS SCHED W/PT History of Present Illness Patient following up for history of coarct repair at the age of 3 she went to [facility] and had a surgical repair of her coarctation aorta she has been done well since she feels daily she has tachycardia although she is feeling it presently in her heart rates in normal range. She has had no lightheadedness she would like to start exercising. She does say she is overweight needs to cut her weight down. Past Medical History: Diagnosis Date Anxiety Coarctation of aorta Depression Dissociative disorder Hearing loss No data recorded No data recorded No data recorded Past Surgical History: Procedure Laterality Date CARDIAC SURGERY age 4 Family History Problem Relation Age of Onset Diabetes Mother Thyroid Issues Mother Hypertension Mother Heart disease Mother Thyroid Issues Sister Social History Socioeconomic History Marital status: Single Spouse name: Not on file Number of children: Not on file Years of education: Not on file Highest education level: Not on file Occupational History Not on file Tobacco Use Smoking status: Every Day Types: Cigarettes Smokeless tobacco: Never Vaping Use Vaping Use: Every day Substance and Sexual Activity Alcohol use: Never Drug use: Never Sexual activity: Not on file Other Topics Concern Caffeine Use Yes Social History Narrative Not on file Social Determinants of Health Financial Resource Strain: Not on file Food Insecurity: No Food Insecurity (12/16/2023) Hunger Screening Food Insecurity - Worry: Never True Food Insecurity - Inability: Never True Transportation Needs: Not on file Physical Activity: Not on file Stress: Not on file Social Connections: Not on file Interpersonal Safety: Not on file Housing Instability: Not on file Review of Systems Review of Systems Constitutional: Positive for malaise/fatigue. Eyes: Positive for blurred vision and double vision. Hematologic/Lymphatic: Bruises/bleeds easily. Musculoskeletal: Positive for back pain and muscle weakness. Neurological: Positive for headaches and light-headedness. Psychiatric/Behavioral: Positive for depression. The patient is nervous/anxious. CARDIOVASCULAR: Please review HPI. Physical Examination General appearance: Alert, oriented and cooperative. In no acute distress. Skin: Warm and dry to touch. Head: Normocephalic, without obvious abnormality, atraumatic. Ears, Nose, Mouth, Throat: Throat clear without erythema or exudate. Dentition intact. Eyes: Conjunctivae unremarkable, EOM intact. Neck: No JVD, No carotid bruit. Neck supple, trachea midline. Respiratory: Clear to auscultation bilaterally, no use of accessory muscles. Cardiovascular: RRR with normal S1 and S2 with no murmurs. Gastrointestinal: Soft, non-tender. Bowel sounds normal. Musculoskeletal: No peripheral edema. Neurologic: Oriented to time, person and place, affect appropriate. No focal/major motor defects noted. Psychiatric: Appropriate mood, memory and judgement. VITAL SIGNS: BP 90/70 (BP Site: Left Arm, BP Postition: Sitting) Pulse 103 Ht 167.6 cm (5' 6 ) Wt 111.1 kg (245 lb) SpO2 100% BMI 39.54 kg/m No orders of the defined types were placed in this encounter. There are no discontinued medications. IMPRESSIONS/PLAN 1. Hx of CABG - POCT EKG 2. Coarctation of aorta - Echo complete W/O contrast; Future - Holter monitor 24-48 hour; Future 1. History of repair of coarctation of the aorta at age 3 no recent echo 2. History of tachycardia symptoms Check 1 day monitor to make sure she is doing okay as far as rates Check echocardiogram to look at LV function echo and coarct repair Further recommendations after testing TODAYS ORDERS Orders Placed This Encounter Procedures Holter monitor 24-48 hour POCT EKG Echo complete W/O contrast FOLLOW UP Return in about 2 years (around 12/16/2025). PCP: LALITHA GIBSON, DECAL DECORATOR-MELLOWING MACHINE OPERATOR Referring Physician: No referring provider defined for this encounter. Pt scheduled for holter monitor and echo at PM 01/20/24 documented in this encounter [facility] 12-16-2023 Instructions Mel Keller CMA - 12/16/2023 2:00 PM EST Are You Ready To Kick The Habit? Free Tobacco Cessation Resources [facility] Services [facility] provide all employees with free tobacco cessation services that include: Counseling to understand nicotine addiction Education about medications that can help you successfully quit Assistance with developing a plan to quit Call to set up an individual appointment or find out when group classes will be held: [facility]: [phone] [facility]: [phone] [facility]: [phone] [facility]: [phone] Quit Smoking Action Plan and Resources [facility] offers an eight-week, online smoking cessation plan to all [facility] employees, regardless of whether [employer] is your medical insurance provider. Go to [email or web address] lness and click the Health Risk Assessment and Resources link to get started. In the V[employer] menu, click Action Plans instead of Health Risk Assessment to access the Quit Smoking Action Plan. Additional smoking cessation resources are also available to all [facility] employees on the [employer] web page at www.GutCheck/stu hernandez. [facility] Tobacco Cessation Program If [employer] is your medical insurance provider, there are more free resources available to you, including: No copays or deductibles on local tobacco cessation counseling services to help you quit Prescription assistance for tobacco cessation medications to help you quit For details about the tobacco cessation program available to [employer] members, go to www.GutCheck (Search: Tobacco Cessation Program). [place] Tobacco Quit Line 9-549-PHAT-NOW ( ) is a toll-free, telephonic service that helps [place] residents quit smoking and using tobacco. It is staffed by experts who tailor a quit plan for you and provide you with advice. [place] Tobacco Quit Line 2-694-IFSQ-NOW ( ) is a toll-free, telephonic service that helps [place] residents quit smoking and using tobacco. It is staffed by experts who tailor a quit plan for you and provide you with advice. Two weeks of nicotine replacement therapy may be provided at no charge, if needed. Additional Resources These national organizations also offer free information and resources to help you quit tobacco: [place] Cancer Society--www.cancer.org/healthy /stayawayfromtobacco [place] Heart Association--www.heart.org (Search: Quit Smoking) Centers for Disease Control and Prevention--www.cdc.gov/tobacco [place] Lung Association--www.lungusa.org documented in this encounter [facility] 12-15-2023 Miscellaneous Notes Left message for patient to remind them to bring their most current medication list with them to their appointment. documented in this encounter [facility] 12-15-2023 Telephone encounter Note Left message for patient to remind them to bring their most current medication list with them to their appointment. [facility] 11-26-2023 Miscellaneous Notes Patient called the office to schedule a biopsy stating she saw [facility] & they told her she needed a biopsy. I told the patient I would get her reports & check with our provider and I could call her back. I called the [facility] to get patient notes & results. Received visit note & pap results from 09/01/23 & scanned into patient's media. Does the patient need to be scheduled for a colposcopy? Please advise. Thank you. LVM for patient to return office call Pt returned call and was notified of not needing a colpo at this time. [facility] Telephone encounter Note Patient called the office to schedule a biopsy stating she saw [facility] & they told her she needed a biopsy. I told the patient I would get her reports & check with our provider and I could call her back. I called the [facility] to get patient notes & results. Received visit note & pap results from 09/01/23 & scanned into patient's media. Does the patient need to be scheduled for a colposcopy? Please advise. Thank you. [facility] 11-26-2023 Telephone encounter Note LVM for patient to return office call [facility] 11-26-2023 Telephone encounter Note Pt returned call and was notified of not needing a colpo at this time. [facility] Evaluation note No assessment inform ation available [facility] Work Phone: Evaluation note Diagnosis Hx of CABG- Primary Postsurgical aortocoronary bypass status Coarctation of aorta documented in this encounter [facility] SystemInstructionsNot on filedocumented in this encounter [employer] SystemInstructionsNot on filedocumented in this encounter [employer] SystemInstructionsNot on filedocumented in this encounter [facility] Summary Purpose Family History No Family History Records FoundNo Family History Records FoundNo Family History Records FoundNo Family History Records FoundNo Family History Records FoundNo Family History Records FoundNo Family History Records Found Advance Directives No Advanced Directives Records Found Advance Directive Response Recorded Date/ Time Advance Directives No June 01 11:38pm Chief Complaint and Reason for Visit Chief Complaint R ankle injury Reason for Referral Specialty Diagnoses / Procedures Referred By Contac t Referred To Contact Diagnoses Coarctation of aorta Procedures Holter monitor 24-48 hour Christy Dias MD [address] [place] [address] [address] [place] [address] Phone: [phone] Referral ID Status Reason Start Date Expiration Date V isits Requested Visits Authorized [id number] Pending Review 12/16/2023 12/15/2024 1 1 Specialty Diagnoses / Procedures Referred By Contac t Referred To Contact Diagnoses Coarctation of aorta Procedures Echo complete W/O contrast Christy Dias MD [address] [place] [address] [address] [place] [address] Phone: [phone] Referral ID Status Reason Start Date Expiration Date V isits Requested Visits Authorized [id number] Pending Review 12/16/2023 12/15/2024 1 1 Additional Source Comments INFORMATION SOURCE (unrecogn ized section and content) DATE CREATED AUTHOR 04/20/2018 [employer] DATE CREATED AUTHOR AUTHOR'S ORGANIZ ATION 04/20/2018 [facility] DATE CREATED AUTHOR AUTHOR'S ORGANIZ ATION 06/12/2022 [facility] DATE CREATED AUTHOR AUTHOR'S ORGANIZ ATION 10/25/2022 [facility] DATE CREATED AUTHOR AUTHOR'S ORGANIZ ATION 06/26/2023 Bob Jimenez [facility] DATE CREATED AUTHOR AUTHOR'S ORGANIZ ATION 10/04/2023 [facility] DATE CREATED AUTHOR AUTHOR'S ORGANIZ ATION 12/18/2023 [facility] Care Teams (unrecognized sec tion and content) Team Status: Inactive Member Role Status Dates Lalitha Gibson NP-C Primary Care Provider Active Christy Maher Jr, MD Emergency Provider Active Team Status: Active Member Role Status Dates Lalitha Gibson NP-C Primary Care Provider Active 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 Relationship Specialty Start Date End Date Lalitha Gibson, DECAL DECORATOR-MELLOWING MACHINE OPERATOR [address] [facility] [place] [id number] PCP - General Family Medicine 12/16/23 Goals (unrecognized section and content) Goals may be documented in a n alternate sectionNot on filedocumented as of this encounterNot on filedocumented as of this encounterNot on filedocumented as of this encounterNot on filedocumented as of this encounter Reason for Visit (unrecogniz ed section and content) Reason Comments 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 This clinical summary was aggregated from multiple sources. Caution should be exercised in using it in the provision of clinical care. This summary normalizes information from multiple sources, and as a consequence, information in this document may materially change the coding, format and clinical context of patient data. In addition, data may be omitted in some cases. CLINICAL DECISIONS SHOULD BE BASED ON THE PRIMARY CLINICAL RECORDS. [employer] provides no warranty or guarantee of the accuracy or completeness of information in this document.
--- NOTE | 2023-12-22 10:26 | ED_ITS ---
HPI - General Adult General Chief complaint: Headache Stated complaint: HEADACHE Time Seen by Provider: 12/22/23 10:20 Source: patient Mode of arrival: walk-in Limitations: no limitations History of Present Illness HPI narrative: This patient is here complaining of a headache. She had a very low level headache last night but was able to sleep. The headache returned gradually and slowly this morning is gotten worse. She has some halos around objects out of her left eye and currently she has some blurry vision in her left eye. She says she has had the symptoms previously. She has not had any recent head trauma injury viral symptomatology fever or influenza type symptoms. She has not had any vomiting but she feels somewhat nauseated. She has never had a CT scan of her head. This headache was not explosive or abrupt in onset. She has no neck or back pain. Actually she qualified that says her neck always hurts and there is nothing new about that today. 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 She does not have any paresis paresthesias tingling or numbness of the extremities. Does not have any vertigo. Related Data Home Medications Medication Instructions Recorded Confirmed cefdinir 300 mg capsule 300 mg PO Q12H 09/04/23 12/22/23 escitalopram oxalate 10 mg tablet 10 mg PO DAILY 09/04/23 12/22/23 etonogestrel 0.12 mg-ethinyl See Rx Instructions vaginal 09/04/23 09/04/23 estradiol 0.015 mg/24 hr vaginal .COMPLEX ring (EluRyng) pantoprazole 40 mg tablet,delayed 40 mg PO DAILY 09/04/23 09/04/23 release fluoxetine 20 mg capsule 20 mg PO DAILY 12/22/23 12/22/23 ondansetron HCl 4 mg tablet 4 mg PO Q6H PRN nausea and vomiting 12/22/23 12/22/23 Previous Rx's Medication Instructions Recorded amoxicillin 875 mg-potassium 1 tab PO Q12H #20 tabs 09/04/23 clavulanate 125 mg tablet Allergies Allergy/AdvReac Type Severity Reaction Status Date / Time No Known Drug Allergies Allergy Verified 09/04/23 10:05 PFSH PFSH Social History Smoking status: Current every day smoker Exam Narrative Exam Narrative: Awake alert [place] x 3 pleasant good historian she was dropped off here at the ER. She does not appear in acute distress. Her vital signs are able. HEENT there is no craniofacial trauma or injury. Ophthalmic examination shows normal cup-to-disc and AV ratio with normal spontaneous venous pulsations bilaterally. Neurological examination shows no focal or lateralizing lateralizing neurological deficit or findings. Cranial nerves II through XII are normal. Dzevmo-it-efnh is normal. Neck is soft and supple with no meningeal irritation. She has no cardiovascular or pulmonary symptomatology at this time. Constitutional Vital Signs, click to edit/add: Last Vital Signs Temp 97.8 F 12/22/23 10:02 Pulse 80 12/22/23 10:02 Resp 18 12/22/23 10:02 BP 164/85 H 12/22/23 10:02 Pulse Ox 100 12/22/23 10:02 O2 Del Method Room Air 12/22/23 10:02 Course Vital Signs Vital signs: Vital Signs Temperature 97.8 F 12/22/23 10:02 Pulse Rate 80 12/22/23 10:02 Respiratory Rate 18 12/22/23 10:02 Blood Pressure 164/85 H 12/22/23 10:02 Pulse Oximetry 100 12/22/23 10:02 Oxygen Delivery Method Room Air 12/22/23 10:02 Temperature 97.8 F 12/22/23 10:02 Pulse Rate 80 12/22/23 10:02 Respiratory Rate 18 12/22/23 10:02 Blood Pressure 164/85 H 12/22/23 10:02 Pulse Oximetry 100 12/22/23 10:02 Oxygen Delivery Method Room Air 12/22/23 10:02 Medical Decision Making [facility] Narrative Medical decision making narrative: This patient has a history of migraines and also has some episodic component to it today that she had previously as well. She does not have any visual field loss at this time. Her funduscopic examination is normal. I have opted to give her intravenous parenteral therapy here in the ER or treat as an outpatient and she is opted for the latter. Discharge Plan Discharge Chief Complaint: Headache Clinical Impression: Ocular migraine Patient Disposition: Home, Self-Care Time of Disposition Decision: 10:36 Prescriptions / Home Meds: No Action escitalopram oxalate 10 mg tablet 10 mg PO DAILY Hold Instructions: dc etonogestrel-ethinyl estradiol [EluRyng] 0.12-0.015 mg/24 hr ring See Rx Instructions VAGINAL .COMPLEX Rx Instructions: vaginally every three weks; pantoprazole 40 mg tablet,delayed release (DR/EC) 40 mg PO DAILY cefdinir 300 mg capsule 300 mg PO Q12H Hold Instructions: dc amoxicillin-pot clavulanate 875-125 mg tablet 1 tab PO Q12H Qty: 20 0RF Hold Instructions: dc fluoxetine 20 mg capsule 20 mg PO DAILY ondansetron HCl 4 mg tablet 4 mg PO Q6H PRN (Reason: nausea and vomiting) Additional Instructions: Rest and quiet the remainder of the day. Frequent sips of clear fluids only. May use Toradol for headache Stand Alone Forms: Portal Instructions Referrals: MANUEL GIBSON [Primary Care Provider] - 1 week
[2023-12-22] MEDS: KETOROLAC TROMETHAMINE 30 MG/ML VIAL IM (10:50)
[2023-12-22] MEDS: PREDNISONE 20 MG TABLET PO (10:50)
[2023-12-22] MEDS: METOCLOPRAMIDE HCL 10 MG/2 ML VIAL IM (10:50)
== END 2023-12-22 11:00 | disposition home or self-care (01) ==
PROVIDERS: Emergency Provider Emergency Medicine Emergency Medical Services; PCP Nurse Practitioner Family
DX: G43.809 Other migraine, not intractable, without status migrainosus (principal); Z79.899 Other long term (current) drug therapy; F17.210 Nicotine dependence, cigarettes, uncomplicated
CPT/HCPCS: 99284; J1885; J2765; J7512

== ENCOUNTER 2024-04-07 11:22 | Emergency (ER) | payer OTHER, SELFPAY ==
[2024-04-07 11:27] VITALS: BP 131/84; PULSE 75; TEMP 37.3; O2SAT 98; BMI 40.2
[2024-04-07 11:35] VITALS: O2SAT 97
[2024-04-07 12:27] LABS: Basophils Percent Auto 0.3 % (0.2-2.0); Eosinophils Absolute Auto 0.1 10^3/uL (0.0-0.7); Eosinophils Percent Auto 1.5 % (0.9-7.0); Hematocrit 43.1 % (36.0-48.0); Hemoglobin 14.1 g/dL (12.0-16.0); Immature Granulocytes Abs Auto 0.03 10^3/uL (0.00-0.03); Immature Granulocytes Pct Auto 0.3 % (0.0-0.5); Lymphocytes Absolute Auto 2.7 10^3/uL (1.2-3.8); Mean Corpuscular HGB Conc 32.7 g/dL (29.9-35.2); Mean Corpuscular Volume 88.7 fL (81.0-99.0); Mean Platelet Volume 9.7 fL (9.5-13.5); Monocytes Absolute Auto 0.8 10^3/uL (0.3-0.8); Monocytes Percent Auto 9.1 % (1.7-12.0); Neutrophils Absolute Auto 5.2 10^3/uL (1.4-6.5); Neutrophils Percent Auto 58.8 % (43.0-75.0); Platelet Count 320 10^3/uL (150-450); Red Blood Count 4.86 10^6/uL (4.20-5.40); Red Cell Distribution Width 11.5 % (11.0-15.0); White Blood Count 8.8 10^3/uL (4.0-11.0)
[2024-04-07] MEDS: KETOROLAC TROMETHAMINE 30 MG/ML VIAL 15 MG IVP (12:34)
[2024-04-07] MEDS: PROCHLORPERAZINE 10 MG/2 ML VIAL 5 MG IV (12:34)
[2024-04-07] MEDS: 0.9 % SODIUM CHLORIDE 1,000 ML 1000 ML IV (12:34)
[2024-04-07] MEDS: FAMOTIDINE/PF 20 MG/2 ML VIAL IV (12:35)
--- NOTE | 2024-04-07 12:50 | ED.GENADUL1 ---
HPI HPI - General Adult General Chief complaint: Headache Stated complaint: FLU LIKE SYMPTOMS Time Seen by Provider: 04/07/24 11:49 Source: patient Mode of arrival: walk-in History of Present Illness HPI narrative: The patient is coming with 3 days history of nausea vomiting and diarrhea that got exacerbated today with headache mostly left-sided, the patient does have a history of migraine The patient mentioned that she did not try anything qkkw-ash-fibfroh for this pain Pain associated with photosensitivity Related Data Home Medications ?Medication ?Instructions ?Recorded ?Confirmed etonogestrel 0.12 mg-ethinyl See Rx Instructions vaginal 09/04/23 04/07/24 estradiol 0.015 mg/24 hr vaginal .COMPLEX ring (EluRyng) fluoxetine 20 mg capsule 20 mg PO DAILY 12/22/23 04/07/24 Previous Rx's ?Medication ?Instructions ?Recorded ondansetron 4 mg disintegrating 4 mg PO DAILY PRN nausea and 04/07/24 tablet vomiting 48 hours #7 tabs Allergies Allergy/AdvReac Type Severity Reaction Status Date / Time No Known Drug Allergies Allergy Verified 09/04/23 10:05 Opioid HPI Opioid Management Most Recent Opioid Data: Last Pain Scale 4 04/07/24 12:34 Last MAR Pain Assessment 04/07/24 12:34 Review of Systems ROS Status of ROS 10 or more systems reviewed and unremarkable except as noted in history and below [facility] Social History Smoking status: Current every day smoker Exam Narrative Exam Narrative: Nurses notes and vital signs reviewed and patient is not hypoxic. General: Well-appearing and in no apparent distress. Skin: Warm, dry, no pallor noted. No rash. Head: Normocephalic, atraumatic. Neck: Supple, non-tender. Eye: Pupils are equal, round and EOMI. No scleral icterus. Ears, Nose, Mouth, and Throat: TM are clear, no nasal mucosal hypertrophy. Oral mucosa is moist, no posterior oropharynx erythema, uvula is mid-line Cardiovascular: Regular Rate and Rhythm without murmur, gallop or rub. Respiratory: No accessory muscle use or respiratory distress. Lungs are clear to auscultation, no wheezing, rales or rhonchi Chest Wall: no tenderness Back: No midline thoracic or lumbar vertebral tenderness. No CVA tenderness Musculoskeletal: normal ROM, no calf or popliteal tenderness, no lower extremity edema/swelling GI: Abdomen is soft, non-distended. Normal bowel sounds. No masses appreciated. No tenderness to palpation. No rebound, guarding, or rigidity noted. Neurological: A&O x4. No cranial nerve dysfunction observed. No truncal ataxia. Moves all extremities. Sensation intact. Psychiatric: Cooperative and interactive. Normal mood and affect. Constitutional Vital Signs, click to edit/add: Last Vital Signs Temp 99.2 F 04/07/24 11:27 Pulse 72 04/07/24 13:23 Resp 16 04/07/24 13:23 BP 123/65 04/07/24 13:23 Pulse Ox 99 04/07/24 13:23 O2 Del Method Room Air 04/07/24 11:35 Course Vital Signs Vital signs: Vital Signs Temperature 99.2 F 04/07/24 11:27 Pulse Rate 75 04/07/24 11:27 Respiratory Rate 16 04/07/24 11:27 Blood Pressure 131/84 04/07/24 11:27 Pulse Oximetry 98 04/07/24 11:27 Oxygen Delivery Method Room Air 04/07/24 11:27 Temperature 99.2 F 04/07/24 11:27 Pulse Rate 72 04/07/24 13:23 Respiratory Rate 16 04/07/24 13:23 Blood Pressure 123/65 04/07/24 13:23 Pulse Oximetry 99 04/07/24 13:23 Oxygen Delivery Method Room Air 04/07/24 11:35 Medical Decision Making [facility] Narrative Medical decision making narrative: CBC chemistry as well as test showed no acute pathology except for mild hyperglycemia Patient was provided with IV fluids and Zofran and Toradol after which she was feeling much better and she was provided with juice that she tolerated very well Patient feeling much better The patient is to follow up with primary care physician in next 2-3 days or to return to the emergency department should any of the signs or symptoms worsen or new symptoms develop. The patient agrees with the following Diagnosis and Treatment plan and the patient will be discharged home. Lab Data Labs: Lab Results 04/07/24 Range/Units 12:15 WBC 8.8 (4.0-11.0) 10^3/uL RBC 4.86 (4.20-5.40) 10^6/uL Hgb 14.1 (12.0-16.0) g/dL Hct 43.1 (36.0-48.0) % MCV 88.7 (81.0-99.0) fL MCH 29.0 (26.7-34.0) pg MCHC 32.7 (29.9-35.2) g/dL RDW 11.5 (11.0-15.0) % Plt Count 320 (150-450) 10^3/uL MPV 9.7 (9.5-13.5) fL Neut % (Auto) 58.8 (43.0-75.0) % Lymph % (Auto) 30.0 (20.5-60.0) % [place] % (Auto) 9.1 (1.7-12.0) % Eos % (Auto) 1.5 (0.9-7.0) % Baso % (Auto) 0.3 (0.2-2.0) % Neut # (Auto) 5.2 (1.4-6.5) 10^3/uL Lymph # (Auto) 2.7 (1.2-3.8) 10^3/uL [place] # (Auto) 0.8 (0.3-0.8) 10^3/uL Eos # (Auto) 0.1 (0.0-0.7) 10^3/uL Baso # (Auto) 0.0 (0.0-0.1) 10^3/uL Abs Immat Gran (auto) 0.03 (0.00-0.03) 10^3/uL Imm/Tot Granulo (auto) 0.3 (0.0-0.5) % Sodium 139 (136-145) mmol/L Potassium 4.5 (3.5-5.1) mmol/L Chloride 101 (98-107) mmol/L Carbon Dioxide 22.1 (21.0-32.0) mmol/L Anion Gap 20.4 BUN 11.0 (7.0-18.0) mg/dL Creatinine 0.53 L (0.55-1.02) mg/dL Est GFR ( Amer) >60 (>=60) Est GFR (Non-Af Amer) >60 (>=60) BUN/Creatinine Ratio 20.8 Glucose 70 L (74-106) mg/dL Calcium 9.0 (8.5-10.1) mg/dL Magnesium 2.1 (1.8-2.4) mg/dL Total Bilirubin 0.3 (0.2-1.0) mg/dL AST 38 H (15-37) U/L ALT 20 (14-59) U/L Alkaline Phosphatase 79 (46-116) U/L Total Protein 7.4 (6.4-8.2) g/dL Albumin 3.2 L (3.4-5.0) g/dL Globulin 4.2 g/dL Albumin/Globulin Ratio 0.8 Serum HCG, Qual Negative (NEGATIVE) Discharge Plan Discharge Stand Alone Forms: Portal Instructions Chief Complaint: Headache Clinical Impression: Gastroenteritis, Headache Patient Disposition: Home, Self-Care Time of Disposition Decision: 13:40 Condition: Good Prescriptions / Home Meds: New ondansetron 4 mg tablet,disintegrating 4 mg PO DAILY PRN (Reason: nausea and vomiting) 2 Days Qty: 7 0RF No Action etonogestrel-ethinyl estradiol [EluRyng] 0.12-0.015 mg/24 hr ring See Rx Instructions VAGINAL .COMPLEX Rx Instructions: vaginally every three weks; fluoxetine 20 mg capsule 20 mg PO DAILY Print Language: Divehi Instructions: Gastroenteritis (DC), Acute Headache (ED) Referrals: MANUEL GIBSON [Primary Care Provider] - 1 week
[2024-04-07 12:54] LABS: HCG Qualitative NEGATIVE (NEGATIVE)
[2024-04-07 13:23] VITALS: BP 123/65; PULSE 72; O2SAT 99
[2024-04-07 13:26] LABS: Alanine Aminotransferase 20 U/L (14-59); Albumin Globulin Ratio 0.8; Albumin Level 3.2 g/dL (3.4-5.0); Alkaline Phosphatase 79 U/L (46-116); Anion Gap 20.4; Aspartate Amino Transferase 38 U/L (15-37); BUN Creatinine Ratio 20.8; Bilirubin Total 0.3 mg/dL (0.2-1.0); Carbon Dioxide 22.1 mmol/L (21.0-32.0); Chloride 101 mmol/L (98-107); Estimated GFR (African America >60 (>=60); Estimated GFR (Non-African Ame >60 (>=60); Globulin 4.2 g/dL; Glucose 70 mg/dL (74-106); Magnesium 2.1 mg/dL (1.8-2.4); Potassium 4.5 mmol/L (3.5-5.1); Sodium 139 mmol/L (136-145); Total Protein 7.4 g/dL (6.4-8.2)
== END 2024-04-07 13:49 | disposition home or self-care (01) ==
PROVIDERS: Emergency Provider Emergency Medicine; PCP Nurse Practitioner Family
DX: K52.9 Noninfective gastroenteritis and colitis, unspecified (principal); R51.9 Headache, unspecified; F17.200 Nicotine dependence, unspecified, uncomplicated
CPT/HCPCS: 36415; 80053; 83735; 84703; 85025; 96361; 96374; 96375; 99284

== ENCOUNTER 2024-07-16 13:21 | Emergency (ER) | payer OTHER, SELFPAY ==
[2024-07-16 13:26] VITALS: BP 127/81; PULSE 83; TEMP 36.8; O2SAT 100; BMI 38.8
--- OUTSIDE RECORDS SUMMARY | 2024-07-16 13:27 | XMS_ITS | CCD ---
Author Organization [facility] Care Team Providers Care Preparer Name Role Phone Philly Kishor Dong Unavailable Unavailable Federico Ashby Unavailable Unavail able Federico Ashby Unavailable Carey Gibson, CANINE DEPUTY-C Lalitha Jeffers Primary Care Provider MD Christy Maher Jr Emergency Provider LALITHA GIBSON Primary Care Unavailable TRENA, DR FLANAGAN Attending Unavailable TRENA, DR FLANAGAN Admitting Unavailable TRENA, DR FLANAGAN Admitting Unavailable TRENA, DR FLANAGAN Consulting Unavailable ARTHUR LALITHA Primary Care Unavailable TRENA, DR FLANAGAN Attending Unavailable TRENA, DR FLANAGAN Admitting Unavailable LALITHA GIBSON Primary Care Unavailable TRENA, DR FLANAGAN Attending Unavailable ARTHUR LALITHA Primary Care Unavailable HERIBERTO, DR CHARLY Rushing [...] Active 600 MG PO Q8H 20 June 01st, 2022 12:00am Problems Active Problems Problem Classification [...] Test Name Value Interpretation Reference Range Facility Correction Documentson 10-02-2023 Correction Documents [id number] Normal [facility] Correction Documentson 06-25-2023 Correction Documents [id number]#[id number]:127 Normal [facility] CULTURE URINEon 10-23-2022 CULTURE URINE Culture Observations : NO GROWTH. Normal [facility] Comment on above: Performed By: #### U RCX #### [facility] [address] [place] [address] Dr. Donald Schroeder ER URINE PROFILEon 2 Bilirubin Ql (U) MODERATE Abnormal NEGATIVE The [facility] Comment on above: Performed By: #### U MICRO, ERUR, PREGU #### [facility] [address] [address] [address] Donald Schroeder Clarity (U) CLEAR Normal CLEAR The [facility] Comment on above: Performed By: #### U MICRO, ERUR, PREGU #### [facility] [address] [address] [address] Donald Schroeder Color (U) YELLOW Normal YELLOW [facility] Comment on above: Performed By: #### U MICRO, ERUR, PREGU #### [facility] [address] [address] [address] Donald AGUILERA A micrscopic examina tion will be performed if indicated. Normal [facility] Comment on above: Performed By: #### U MICRO, ERUR, PREGU #### [facility] [address] [address] [address] Donald Schroeder Glucose Ql (U) Negative Normal NEGATIVE The [facility] Comment on above: Performed By: #### U MICRO, ERUR, PREGU #### [facility] [address] [address] [address] Donald Schroeder Hemoglobin Ql (U) Negative Normal NEGATIVE The [facility] Comment on above: Performed By: #### U MICRO, ERUR, PREGU #### [facility] [address] [address] [address] Donald Schroeder Ketones Ql (U) TRACE Abnormal NEGATIVE The [facility] Comment on above: Performed By: #### U MICRO, ERUR, PREGU #### [facility] [address] [address] [address] Donald Schroeder LEUKOCYTES Negative Normal NEGATIVE The [facility] Comment on above: Performed By: #### U MICRO, ERUR, PREGU #### [facility] [address] [address] [address] Donald Schroeder Nitrite Ql (U) Negative Normal NEGATIVE The [facility] Comment on above: Performed By: #### U MICRO, ERUR, PREGU #### [facility] [address] [address] [address] Donald Schroeder pH (U) 5.0 [pH] Normal 5-9 [facility] Comment on above: Performed By: #### U MICRO, ERUR, PREGU #### [facility] [address] [address] [address] Donald Schroeder Protein (U) [Mass/Vol] 30 mg/dL Abnormal NEGATIVE/ TRACE The [facility] Comment on above: Performed By: #### U MICRO, ERUR, PREGU #### [facility] [address] [address] [address] Donald Schroeder SPEC GRAVITY >=1.030 Abnormal 1.005-<=1.0 25 [facility] Comment on above: Performed By: #### U MICRO, ERUR, PREGU #### [facility] [address] [place] [address] Dr. Donald Schroeder UR MICRO IND INDICATED Normal [facility] Comment on above: Performed By: #### U MICRO, ERUR, PREGU #### [facility] [address] [address] [address] Donald Schroeder Urobilinogen Qn (U) 1.0 {Miguelina'U}/dL Normal 0.2 - 1.0 The [facility] Comment on above: Performed By: #### U MICRO, ERUR, PREGU #### [facility] [address] [place] [address] Dr. Donald Schroeder URon 10-23-2022 , QUAL Negative Normal NEGATIVE The [facility] Comment on above: Performed By: #### U MICRO, ERUR, PREGU #### [facility] [address] [place] [address] Dr. Donald Schroeder URINE MICROSCOPIC ONLYon BACTERIA MODERATE Abnormal NONE SEEN The [facility] Comment on above: Performed By: #### U MICRO, ERUR, PREGU #### [facility] [address] [place] [address] Dr. Donald Schroeder Bacteria identified Cx Nom (U) INDICATED Normal [facility] Comment on above: Performed By: #### U MICRO, ERUR, PREGU #### [facility] [address] [address] [address] Donald Schroeder CAST SEEN Abnormal NONE SEEN [facility] Comment on above: Performed By: #### U MICRO, ERUR, PREGU #### [facility] [address] [address] [address] Donald Schroeder Crystals LM Nom (Urine sed) NONE SEEN Normal NONE SEEN The [facility] Comment on above: Performed By: #### U MICRO, ERUR, PREGU #### [facility] [address] [address] [address] Donald Schroeder Epithelial cells LM Ql (Urine sed) FEW Abnormal NONE SEEN /RARE The [facility] Comment on above: Performed By: #### U MICRO, ERUR, PREGU #### [facility] [address] [place] [address] Dr. Donald Schroeder HYALINE CAST RARE Normal The [facility] Comment on above: Performed By: #### U MICRO, ERUR, PREGU #### [facility] [address] [address] [address] Donald Schroeder MUCOUS MODERATE Abnormal NONE SEEN The [facility] Comment on above: Performed By: #### U MICRO, ERUR, PREGU #### [facility] [address] [address] [address] Donald Schroeder RBC 2-5 Abnormal 0-2 [facility] Comment on above: Performed By: #### U MICRO, ERUR, PREGU #### [facility] [address] [address] [address] Donald Schroeder WBC 5-10 Abnormal NONE SEEN The [facility] Comment on above: Performed By: #### U MICRO, ERUR, PREGU #### [facility] [address] [place] [address] Dr. Donald Schroeder XR ankle RT min 3V*on 2021 XR ankle RT min 3V* [facility] [place] [address] [place] [address] XRay Report Signed Patient: Betsy Sawyer MR#: [id number] 26 : 2000 Acct:[id number] Age/Sex: 21 / F ADM Date: 06/01/22 Loc: ER Room: Type: [facility] ER Attending Dr: Copies to: Christy [...] Osman Polanco M.D.06/02/2022 8:43 AM Dictation Location: [place] [address] Transcribed By: [facility] 06/02/22 0843 Dictated By: Osman Polanco DO 06/02/22 0841 Signed By: 06/02/22 0843 [facility] TSHon 02-27-2022 TSH 1.662 uIU/mL Normal 0.470-4.680 [facility] Comment on above: Performed By: #### T SH #### [facility] [address] [place] [address] Dr. Donald Schroeder TSH RANGE SEE BELOW Normal [facility] Comment on above: Result Comment: <0.3 4 UIU/ml HYPERTHYROID 0.34-5.60 UIU/ml EUTHYROID >5.60 UIU/ml HYPOTHYROID Performed By: #### T SH #### [facility] [address] [place] [address] Dr. Donald Schroeder VIT B12 AND FOLATEon 022 Cobalamin (Vitamin B12) [Mass/Vol] 269.0 pg/mL Normal 239.0-931.0 [facility] Comment on above: Performed By: #### B 12FOL #### [facility] [address] [place] [address] Dr. Donald Schroeder FOLATE 19.80 ng/mL Normal 8.60-58.90 [facility] Comment on above: Performed By: #### B 12FOL #### [facility] [address] [address] [address] Donald Schroeder Echocardiogram - PEDSon 06- Echocardiogram - PEDS [facility] Pediatric Echo/ [address] [facility] [address], [place] [address] Patient Name: BET[facility]YER [facility] Patient Status: OutpatientMRN/PID: [id number] Study Type: Echocardiogram - PEDSDate of : 2000 17 years Height/Weight: 165.00 cm / 84.10 kgGender: F BSA: 1.91 m2 Blood Pressure: 130 / 78 mmHgReading Physician: Maricel Luke MDRequested By: Kishor Fraga MDSonographer: Rachel Lombardo [facility] Diagnosis/ICD: Q25.1-Coarctation of aorta Indications: Coarctation s/p repair Procedure/CPT: 77348 Echocardiography-TTE Congenital Complete OR;20587 Echocardiography-Color Doppler Echo;68539 Echocardiography-Doppler Echo History:Co arctation of the aorta [...] on 04/14/2018 at 12:15:[address] [facility] Peds Cardiology - 3-19 y/oon 04-14-2018 Peds Cardiology - 3-19 y/o Chief ComplaintNew patient visit, S/P coar repair. Accompanied by mother. History of Present IllnessBetsy Sawyer is a 17 year old female who was referred by Dr. Stoll [facility], s/p [...] was noted to be 135/88. Mother reports Miriams blood pressure has not been elevated recently [...] of aorta repair at age 4 at [facility]. Betsy was followed by Dr. Romero post surgery until 2007 when mother transferred care to [place] as it is closer to their home. Mother cannot remember the name of the tool room lathe operator in [place], but was told to follow up in [...] feeds, growth, or meeting milestones as an infant. History: Previous Hospitalizations: None Previous Surgeries: Coarctation [...] done, see scanned results. Results/Data Echocardiogram - [id number] 11:09Scar Kishor Test NameResultFlagReferencePeds Echocardiogram(Report)[id number] [facility] Pediatric Echo/ Lab [address] , [address] [address] Patient Name: BETSY SAWYER Study Location: [facility] Study Date: 04/14/2018 Patient Status: Outpatient MRN/PID: [id number] Study Type: Echocardiogram - PEDS Date of : 2000 Age: 17 years Height/Weight: 165.00 cm / 84.10 kg Gender: F BSA: 1.91 m2 Blood Pressure: 130 / 78 mmHg Reading Physician: Maricel Luke MD Requested By: Kishor Fraga MD Cigarette Making Machine Hopper Feeder: Rachel Lombardo [facility] Diagnosis/ICD: Q25.1-Coarctation of aorta Indications: Coarctation s/p repair Procedure/CPT: 46275 Echocardiography-TTE Congenital Complete OR;55285 Echocardiography-Color Doppler Echo;03176 Echocardiography-Doppler Echo History: Coarctation of the aorta [...] Maintenance; Ordered By:Kishor Fraga; Lipid Panel; Source:Blood ([facility]); Status:Active; Requested for:14Apr2018; Perform:Lab Services - Lab To Draw (Blood Test); Due:[id number];Ordered; For:Health Maintenance; Ordered By:Kishor Fraga; Provider Impressions#1 [...] Recorded: 14Apr2018 11:45AMRecorded: 14Apr2018 10:43AMRecorded: 14Apr2018 10:41AMHeart Dgdh56Aakrfmdkpwd97Azwxqdpf696 , DKW411, LLE, Eotixl375, RUE, SznyxaeFmovjqerj37, RUE70, LLE, Hvrglv08, RUE, SittingHeight5 ft 5.16 icLlvtvu420 lb 6.50 ozBMI Bhuelpkzoz04.7BSA Calculated1.92BMI Uwzaxehyku16 %2-20 Stature Nhkgztbgni15 %2-20 Weight Ehdnlxdkzs22 %O2 Vbufdkwimm49 Normal [facility] Vital Signs Date Time Vital Sign Value Performing Clinician Faci lity 12-16-2023 13:55-0500 Body height 167.6 cm Christy Dias MD [facility] 12-16-2023 13:55-0500 Body mass index (BMI) [Ratio] 39.54 kg/m2 Christy Dias MD [facility] 12-16-2023 13:55-0500 Body weight 111.13 kg Christy Dias MD Work [facility] 12-16-2023 13:55-0500 Diastolic blood pressure 70 mm[Hg] Christy Dias MD Work Phone: [facility] 12-16-2023 13:55-0500 Heart rate 103 /min Christy Dias MD [facility] 12-16-2023 13:55-0500 SaO2% (BldA) [Mass fraction] 100 % Christy Dias MD [facility] 12-16-2023 13:55-0500 Systolic blood pressure 90 mm[Hg] Christy Dias MD Work Phone: [facility] 06-01-2022 23:36-0400 Body temperature 98.4 [degF] CANINE DEPUTY-C Lalitha Arthur Work Phone: [facility] 06-01-2022 23:36-0400 Diastolic blood pressure 80 mm[Hg] CANINE DEPUTY-C Lalitha Arthur Work Phone: [facility] 06-01-2022 23:36-0400 Heart rate 80 /min CANINE DEPUTY-C Lalitha Arthur Work Phone: [facility] 06-01-2022 23:36-0400 Respiratory rate 20 /min CANINE DEPUTY-C Lalitha Arthur Work Phone: [facility] 06-01-2022 23:36-0400 SaO2% (BldA) [Mass fraction] 98 % CANINE DEPUTY-C Lalitha Arthur Work Phone: [facility] 06-01-2022 23:36-0400 Systolic blood pressure 166 mm[Hg] CANINE DEPUTY-C Lalitha Arthur Work Phone: [facility] Encounters Encounter Date Encounter Type Care Provider Facility Start: 12-25-2023 Telephone encounter Chico johnston RN [facility] Comment on above: Echo pending insuran ce Start: 12-16-2023 End: 12-16-2023 ambulatory CHRISTY DIAS [facility] Start: 12-16-2023 End: 12-16-2023 Office consultation new/estab patient 40 min Christy Dias MD Work Phone: [facility] Comment on above: Hx of CABG (Primary Dx); Coarctation of aorta Start: 12-15-2023 Chart abstracting Scanning Pro vider External [facility] Start: 12-15-2023 [facility]phone [facility] Start: 11-26-2023 Telephone encounter Isela beltran [facility] Start: 09-28-2023 ambulatory Facility:[facility] Start: 06-16-2023 ambulatory Torres ROLLINS Facility: Correction Start: 10-23-2022 End: 10-23-2022 ambulatory LALITHA GIBSON Facility:[facility] Start: 06-01-2022 End: 06-02-2022 Emergency department patient visit CANINE DEPUTY-Valerie Gibson Work Phone: [facility] Start: 03-25-2022 ambulatory LALITHA GIBSON Facility: [facility] Start: 02-27-2022 End: 02-28-[address] MASHA ALBRECHT Facility:[facility] Start: 04-14-2018 Ambulatory Kishor Fraga Facil ity:9504 Procedures Date Procedure Procedure Detail Performing Clinician Start: 12-16-2023 Ecg routine ecg w/le ast 12 lds w/i&r Christy Dias MD Work Phone: Start: 06-01-2022 X-ray of right ankle CANINE DEPUTY -Valerie Lalitha Gibson Work Phone: History of coronary artery bypass grafting Hx of CABG Christy Dias MD Work Phone: Plan of Treatment Date Care Activity Detail Author Start: 12-16-2024 Adult BMI Screening Adult BMI Screen ing [facility] docplanner Start: 12-16-2024 Tobacco Screening [facility] Start: 01-20-2024 End: 01-20-2024 Patient encounter procedure [facility] Start: 12-16-2023 End: 12-16-2024 Echo complete W/O contrast Echo complete W/O contrast Echocardiography Routine Coarctation of aorta Expected: 12/16/2023, Expires: 12/16/2024 [employer] Work Phone: Comment on above: Expected: 12/16/2023 , Expires: 12/16/2024 Start: 12-16-2023 End: 12-16-2024 Holter monitor study Holter monitor 24-48 hour Cardiac Services Routine Coarctation of aorta Expected: 12/16/2023, Expires: 12/16/2024 [facility] docplanner Comment on above: Expected: 12/16/2023 , Expires: 12/16/2024 Start: 12-16-2023 End: 12-16-2023 Patient encounter procedure 12/16/2023 2:00 PM EST [facility] [address] [place] [address] Christy Dias MD [address] [place] [id number] [facility] Start: 07-03-2023 Influenza vaccination Influenza Vaccine [facility] Start: 06-21-2023 DTaP,Tdap and Td Vaccines (6 - Td or Tdap) DTaP,Tdap and Td Vaccines (6 - Td or Tdap) [facility] Start: 2022 Screening for malignant neoplasm of cervix Pap Smear [facility] Start: 2020 DTaP,Tdap and Td Vaccines (1 - Tdap) DTaP,Tdap and Td Vaccines (1 - Tdap) [facility] Start: 2019 Adult BMI Follow Up Plan Adult BMI Follow Up Plan [facility] Start: 2019 Adult BMI Screening Adult BMI Screen ing [facility] Start: 2013 Depression Screening Depression Scre ening [facility] Start: 2013 Tobacco Screening Tobacco Screening [facility] Start: 2001 Tobacco Counseling Tobacco Counselin g [facility] Patient Education How to Use Cru tches Walking Boot Ankle Sprain ED [facility] Work Phone: Patient referral [facility] Work Phone: POCT EKG POCT EKG ECG Rou isidra Hx of CABG 12/16/2023 [facility] Immunizations Immunization Date Immunization Notes Care Provider Fa cility 08-04-2017 influenza virus vaccine, unspecified formulation Christy Dias MD Work Phone: [facility] Payers Date Payer Category Payer Medicaid [employer] HMO [id number] 2023-Present [phone] [address] [place] [address] [id number] 2023 Medicaid [id number] 2000 Unknown [id number] 593 2001 Unknown [id number]. 593 2001 Unknown [id number]. 593 2001 Unknown [id number]. 593 2001 Unknown [id number]. 1286 1972 Unknown [id number] [id number]. 727 1959 Unknown [id number] 1959 Unknown [id number] [facility] [place] e ( and others) [facility] [id number] Self-pay Self Pay [id number] Unknown Insurance No Card [id number] Social History Date Type Detail Facility Start: 06-01-2022 Tobacco smoking status NYIS Never smoked tobacco (finding) [facility] Start: 2000 Sex Assigned At Female F [facility] Tobacco smoking status [facility] Tobacco smoking consumption unknown [facility] Start: 2000 Sex Assigned At Not on file [facility] Start: 12-15-2023 End: 12-16-2023 Gender identity Not on file [facility] Start: 12-15-2023 Tobacco smoking status NHIS Smokes tobacco daily [facility] History of tobacco use Cigarette Smoker [facility] Start: 12-15-2023 Tobacco use and exposure Smokeless tobacco non-user [facility] Start: 12-15-2023 End: 12-16-2023 History of Social function [facility] Start: 12-16-2023 Alcohol intake Lifetime non-d ulisses (finding) [facility] Within the past 12 months we worried whether our food would run out before we got money to buy more. Never True [facility] Clinical Notes 11-26-2023 to 12-25-2023 Telephone Encounter - Chico Carmona RN - 12/25/2023 1:30 PM ESTTelephone Encounter - Chico Carmona RN - 12/25/2023 1:30 PM Calin Dias MD - 12/16/2023 2:00 PM EST Note Date & Type Note Facility 12-25-2023 Miscellaneous Notes Received message from Lurdes at [facility]ert Patient: Betsy Sawyer; 2000 ECHO pending/ needing additional info. Per [facility], looking for: Most recent EKG report showing a problem & TTE 05/16/2019 (last TTE completed) and Plan Holter Monitor - request results Tracking# [id number] P2P# [phone] Patient scheduled for holter monitor on 01/20/24 Chair Spring Assembler called [facility], spoke to Shantel regarding p2p Tracking# [id number]. Call REF# [id number] Echo is currently in specialist review; no P2P needed yet. Call REF# [id number] They need updated information faxed to : Fax number [phone] w/tracking number Lurdes ying precert already sent the last ov note and EKG done. Chair Spring Assembler does not see any additional test results. Chair Spring Assembler attempted to call patient, phone rings and hangs up. LMOM on pts moms phone (no -HIPAA) asking her to have pt r/c to [facility] office to discuss past cardiac testing. 2nd attempt- Chair Spring Assembler attempted to call patient with results and leave VM but no VM set up, unable to LMOM. 3rd attempt - Chair Spring Assembler attempted to call patient with results and leave VM but no VM set up, unable to LMOM. Need an update from pt on any past testing info (with location) for records to obtain further information to send to [facility] for pending echo. Pts holter and echo scheduled for 01/20/24. Chair Spring Assembler called [facility], spoke to Zoya to update. Attempt to contact letter sent to pt. documented in this encounter [email or web address] 12-25-2023 Telephone encounter Note Received message from Lurdes at [facility] Patient: Betsy Sawyer; 2000 ECHO pending/ needing additional info. Per [facility], looking for: Most recent EKG report showing a problem & TTE 05/16/2019 (last TTE completed) and Plan Holter Monitor - request results Tracking# [id number] P2P# [phone] Patient scheduled for holter monitor on 01/20/24 [email or web address] 12-25-2023 Telephone encounter Note Chair Spring Assembler called [facility], spoke to Shantel regarding p2p Tracking# [id number]. Call REF# [id number] Echo is currently in specialist review; no P2P needed yet. Call REF# [id number] They need updated information faxed to : Fax number [phone] w/tracking number Lurdes stepan cordoba already sent the last ov note and EKG done. Chair Spring Assembler does not see any additional test results. [facility] 12-25-2023 Telephone encounter Note Chair Spring Assembler attempted to call patient, phone rings and hangs up. LMOM on pts moms phone (no -HIPAA) asking her to have pt r/c to [facility] office to discuss past cardiac testing. [facility] 12-25-2023 Telephone encounter Note 2nd attempt- Chair Spring Assembler attempted to call patient with results and leave VM but no VM set up, unable to LMOM. [facility] 12-25-2023 Telephone encounter Note 3rd attempt - Chair Spring Assembler attempted to call patient with results and leave VM but no VM set up, unable to LMOM. Need an update from pt on any past testing info (with location) for records to obtain further information to send to [facility] for pending echo. Pts holter and echo scheduled for 01/20/24. Chair Spring Assembler called Anjana cordoba, spoke to Zoya to update. Attempt to contact letter [facility] pt[facility] History of Presen t illness Narrative Betsy Sawyer Date of visit: 12/16/2023 Date of : 2000 Age: 23 y.o. There is no problem list on file for this patient. No Known Allergies No current outpatient medications on file. No current facility-administered medications for this visit. Chief Complaint Patient presents with New Patient CANINE DEPUTY PT STATES SHE HAD OPEN HEART SURGERY @ AGE 3 CORDELL BABIES NO TESTS SCHED W/PT History of Present Illness Patient following up for history of coarct repair at the age of 3 she went to [facility] and had a surgical repair of her [...] about 2 years (around 12/16/2025). PCP: LALITHA GIBSON APRN-RADHA Referring Physician: No referring provider defined for this encounter. Pt scheduled for holter monitor and echo at [facility] 01/20/24 documented in this encounter [facility] 12-16-2023 Instructions Mel Keller CMA - 12/16/2023 2:00 PM EST Are You Ready To Kick The Habit? Free Tobacco Cessation Resources [facility] Services [facility] provide all employees with free tobacco cessation services that include: Counseling to understand nicotine addiction Education about medications that can help you successfully quit Assistance with developing a plan to quit Call to set up an individual appointment or find out when group classes will be held: Mathew rader [facility]: [phone] [facility]: [phone] [facility]: [phone] [facility]: [phone] Quit Smoking Action Plan and Resources [facility] offers an eight-week, online smoking cessation plan to all [facility] employees, regardless of whether [place] is your medical insurance provider. Go to www.mypromedica.org/employeewel lness and click the Health Risk Assessment and Resources link to get started. In the Green Clean menu, click Action Plans instead of Health Risk Assessment to access the Quit Smoking Action Plan. Additional smoking cessation resources are also available to all [facility] employees on the [employer] Clean web page at www.Spotigo/stu hernandez. [place] Tobacco Cessation Program If [place] is your medical insurance provider, there are more free resources available to you, including: No copays or deductibles on local tobacco cessation counseling services to help you quit Prescription assistance for tobacco cessation medications to help you quit For details about the tobacco cessation program available to [place] members, go to www.Make It Work.5Rocks (Search: Tobacco Cessation Program). [place] Tobacco Quit Line 0-839-HCRT-NOW ( ) is a toll-free, telephonic service that helps [place] residents quit smoking and using tobacco. It is staffed by experts who tailor a quit plan for you and provide you with advice. [place] Tobacco Quit Line 6-653-TIML-NOW ( ) is a toll-free, telephonic service that helps [place] residents quit smoking and using tobacco. It is staffed by experts who tailor a quit plan for you and provide you with advice. Two weeks of nicotine replacement therapy may be provided at no charge, if needed. Additional Resources These national organizations also offer free information and resources to help you quit tobacco: [place] Cancer [employer]--www.cancer.org/healthy /stayawayfromtobacco [place] Heart Association--www.heart.org (Search: Quit Smoking) Centers for Disease Control and Prevention--www.cdc.gov/tobacco [place] Lung Association--www.lungusa.org documented in this encounter [email or web address] 12-15-2023 Miscellaneous Notes Left message for patient to remind them to bring their most current medication list with them to their appointment. documented in this encounter [email or web address] 12-15-2023 Telephone encounter Note Left message for patient to remind them to bring their most current medication list with them to their appointment. [facility] 11-26-2023 Miscellaneous Notes Patient called the office to schedule a biopsy stating [facility] & they told her she needed a biopsy. I told the patient I would get her reports & check with our provider and I could call her back. I called the [facility] to get patient notes & results. Received visit note & pap results from 09/01/23 & scanned into patient's media. Does the patient need to be scheduled for a colposcopy? Please advise. Thank you. LVM for patient to return office call Pt returned call and was notified of not needing a colpo at this time. documented in this encounter [facility] 11-26-2023 Telephone encounter Note Patient called the office to schedule a biopsy stating [facility] & they told her she needed a biopsy. I told the patient I would get her reports & check with our provider and I could call her back. I called the [facility] to get patient notes & results. Received visit note & pap results from 09/01/23 & scanned into patient's media. Does the patient need to be scheduled for a colposcopy? Please advise. Thank you. [facility] 11-26-2023 Telephone encounter Note LVM for patient to return office call [facility] 11-26-2023 Telephone encounter Note Pt returned call and was notified of not needing a colpo at this time. [facility] Evaluation note No assessment inform ation available [facility] Work Phone: Evaluation note Diagnosis Hx of CABG- Primary Postsurgical aortocoronary bypass status Coarctation of aorta documented in this encounter [facility] filed[facility]ed in this encounter [facility] on filedocumented in this encounter [facility]ructionsNot on filedocumented in this encounter [facility] on filedocumented in this encounter [facility] Summary Purpose Family History No Family History Records FoundNo Family History Records FoundNo Family History Records FoundNo Family History Records FoundNo Family History Records FoundNo Family History Records FoundNo Family History Records Found Advance Directives Advance Directive Response Recorded Date/ Time Advance Directives No June 01 11:38pm Chief Complaint and Reason for Visit Chief Complaint R ankle injury Reason for Referral Specialty Diagnoses / Procedures Referred By Carmella molina Referred To Contact Diagnoses Coarctation of aorta Procedures Holter monitor 24-48 hour Christy Dias MD [address] [facility] [place] [address] [facility] [address] [place] [address] Phone: [phone] Referral ID Status Reason Start Date Expiration Date V isits Requested Visits Authorized [id number] Pending Review 12/16/2023 12/15/2024 1 1 Specialty Diagnoses / Procedures Referred By Carmella molina Referred To Contact Diagnoses Coarctation of aorta Procedures Echo complete W/O contrast Christy Dias MD [address] [facility] [place] [address] [facility] [address] [place] [address] Phone: [phone] Referral ID Status Reason Start Date Expiration Date V isits Requested Visits Authorized [id number] Pending Review 12/16/2023 12/15/2024 1 1 Additional Source Comments INFORMATION SOURCE (unrecogn ized section and content) DATE CREATED AUTHOR 04/20/2018 [employer] DATE CREATED AUTHOR AUTHOR'S ORGANIZ ATION 04/20/2018 [facility] DATE CREATED AUTHOR AUTHOR'S ORGANIZ ATION 06/12/2022 [facility] DATE CREATED AUTHOR AUTHOR'S ORGANIZ ATION 10/25/2022 [facility] DATE CREATED AUTHOR AUTHOR'S ORGANIZ ATION 06/26/[address] [facility] DATE CREATED AUTHOR AUTHOR'S ORGANIZ ATION 10/04/2023 Rojas Emer[facility] DATE CREATED AUTHOR AUTHOR'S ORGANIZ ATION 12/18/2023 [facility] Care Teams (unrecognized sec tion and content) Team Status: Inactive Member Role Status Dates Lalitha Gibson NP-C Primary Care Provider Active Christy Maher Jr, MD Emergency Provider Active Team Status: Active Member Role Status Dates Lalitha Gibson NP-C Primary Care Provider Active Preparer Relationship Specialty Start Date End Date Lalitha Gibson APRN-CNP [address] [place] [id number] [phone] PCP - General Family Medicine 12/16/23 Preparer Relationship Specialty Start Date End Date Lalitha Gibson APRN-CNP [address] [place] [address] PCP - General Family Medicine 12/16/23 Goals (unrecognized section and content) Goals may be documented in a n alternate sectionNot on filedocumented as of this encounterNot on filedocumented as of this encounterNot on filedocumented as of this encounterNot on filedocumented as of this encounterNot on filedocumented as of this encounter Reason for Visit (unrecogniz ed section and content) Reason Comments New Patient CANINE DEPUTY PT STATES SHE HAD OPEN HEART SURGERY @ AGE 3 RAINBOW BABIES NO TESTS SCHED W/PT Reason Onset Date Comments Echo pending insurance 12/25/2023 FOR RECORDS PERTAINING TO PATIENTS WHO ARE [...] BE BASED ON THE PRIMARY CLINICAL RECORDS. [facility] [employer] [facility]. provides no warranty or guarantee of the accuracy or completeness of information in this document.
--- NOTE | 2024-07-16 13:55 | ECG_ITS ---
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
[2024-07-16 14:26] LABS: Troponin I High Sensitivity <4.0 pg/mL (4.0-51.3)
--- NOTE | 2024-07-16 14:46 | ED_ITS ---
HPI HPI - General Adult General Chief complaint: Chest Pain Stated complaint: HEADACHE, CHEST PAIN, BLURRED VISION Time Seen by Provider: 07/16/24 13:40 Source: patient Mode of arrival: walk-in History of Present Illness HPI narrative: This patient presents to the emergency room complaining of headache and chest pain. She said when she went to work this morning she felt fine. She says she is under a lot of pressure at work and stress. She said that the left ocular headache and the chest discomfort started at the same time. She states that when she was 4 years old she had repair of her aortic valve at [facility]. She does see a histology technologist here locally and her most recent visit they said everything was fine and did not advise more diagnostic studies or an echocardiogram. She is not on any medications for her heart. She has no history of vascular disease. She does not have any shortness of breath. 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 She does have a primary care doctor but has not actually seen a neurologist for these headaches. This headache was not abrupt, sudden or explosive and headache. She does not have any pain in her neck area. She actually does not want anything for the headache at this time. She says she just want to make sure that her heart was okay. She does not have nausea vomiting or diaphoresis. She does not have a tearing or ripping sensation. Related Data Home Medications ?Medication ?Instructions ?Recorded ?Confirmed etonogestrel 0.12 mg-ethinyl See Rx Instructions vaginal 09/04/23 07/16/24 estradiol 0.015 mg/24 hr vaginal .COMPLEX ring (EluRyng) fluoxetine 20 mg capsule 20 mg PO DAILY 12/22/23 07/16/24 Allergies Allergy/AdvReac Type Severity Reaction Status Date / Time No Known Drug Allergies Allergy Verified 09/04/23 10:05 Opioid HPI Opioid Management Most Recent Opioid Data: Last Pain Scale 4 04/07/24 12:34 PFSH PFS Medical History (Updated 07/16/24 @ 14:54 by Andrey Mack MD) Depression ?F32.A - Depression, unspecified (ICD-10) Social History Smoking status: Current every day smoker Exam Narrative Exam Narrative: Patient is awake alert signs are stable throughout her stay here. She was not hypoxic tachypneic or tachycardic. Twelve-lead EKG was done on arrival here and did not show any ST segment elevation or arrhythmia. On ENT examination her neck is soft and supple there is no meningeal irritation. Pupillary light response is normal. Extraocular muscles are normal. There is no facial asymmetry. Speech and phonation and conversation are all normal. Examination of her chest her lungs were clear with no wheeze rales or rhonchi. Heart sounds are normal I do not appreciate a murmur. Neurological examination shows no symptomatic or focal neurological findings or deficits. Twelve-lead EKG was as described with no ST segment elevation or evidence of acute ischemia arrhythmia or infarct. Her cardiac troponin is normal. Constitutional Vital Signs, click to edit/add: Last Vital Signs Temp 98.3 F 07/16/24 13:26 Pulse 83 07/16/24 13:26 Resp 18 07/16/24 13:26 BP 127/81 07/16/24 13:26 Pulse Ox 100 07/16/24 13:26 O2 Del Method Room Air 07/16/24 13:26 Course Vital Signs Vital signs: Vital Signs Temperature 98.3 F 07/16/24 13:26 Pulse Rate 83 07/16/24 13:26 Respiratory Rate 18 07/16/24 13:26 Blood Pressure 127/81 07/16/24 13:26 Pulse Oximetry 100 07/16/24 13:26 Oxygen Delivery Method Room Air 07/16/24 13:26 Temperature 98.3 F 07/16/24 13:26 Pulse Rate 83 07/16/24 13:26 Respiratory Rate 18 07/16/24 13:26 Blood Pressure 127/81 07/16/24 13:26 Pulse Oximetry 100 07/16/24 13:26 Oxygen Delivery Method Room Air 07/16/24 13:26 Medical Decision Making MDM Narrative Medical decision making narrative: As noted above her EKG was unremarkable. Cardiac troponin was negative and there is a low index of suspicion. She does not have cardiovascular risk factors with the exception of her BMI is elevated. She does not want anything for her headache. She was advised to follow-up with her primary care doctor or neurologist for consideration of prophylactic therapy for her headaches if they become more frequent Lab Data Labs: Lab Results 07/16/24 Range/Units 14:04 Troponin I High Sens <4.0 L (4.0-51.3) pg/mL Discharge Plan Discharge Chief Complaint: Chest Pain Clinical Impression: Ocular headache Patient Disposition: Home, Self-Care Time of Disposition Decision: 14:54 Prescriptions / Home Meds: No Action etonogestrel-ethinyl estradiol [EluRyng] 0.12-0.015 mg/24 hr ring See Rx Instructions VAGINAL .COMPLEX Rx Instructions: vaginally every three weks; fluoxetine 20 mg capsule 20 mg PO DAILY Print Language: Samoan Additional Instructions: If headaches increase consider neurology evaluation Referrals: MANUEL GIBSON [Primary Care Provider] - 1 week
== END 2024-07-16 15:01 | disposition home or self-care (01) ==
PROVIDERS: Emergency Provider Emergency Medicine Emergency Medical Services; PCP Nurse Practitioner Family
DX: R51.9 Headache, unspecified (principal)
CPT/HCPCS: 36415; 84484; 93005; 99284

== ENCOUNTER 2024-07-24 09:15 | Emergency (ER) | payer OTHER, SELFPAY ==
[2024-07-24 09:17] VITALS: BP 140/91; PULSE 85; TEMP 36.7; O2SAT 97; BMI 38.7
--- OUTSIDE RECORDS SUMMARY | 2024-07-24 09:20 | XMS_ITS | CCD ---
Author Organization [facility] Care Team Providers Care Accounts Receivable Manager Name Role Phone Philly Kishor Dong Unavailable Unavailable Federico Ashby Unavailable Unavail able Federico Ashby Unavailable Carey Gibson, GOLD BEATER-C Lalitha Jeffers Primary Care Provider MD Christy [...] Test Name Value Interpretation Reference Range Facility Prison Documentson 10-02-2023 Prison Documents [id number] Normal [facility] Prison Documentson 06-25-2023 Prison Documents [id number]#1.00CD:127 Normal [facility] CULTURE URINEon 10-23-2022 CULTURE URINE Culture Observations : NO GROWTH. Normal [facility] Comment on above: Performed By: #### U RCX #### [facility] [address] [place] [address] Dr. Donald Schroeder ER URINE PROFILEon 2 Bilirubin Ql (U) MODERATE Abnormal NEGATIVE [facility] Comment on above: Performed By: #### U MICRO, ERUR, PREGU #### [facility] [address] [address] [address] Donald Schroeder Clarity (U) CLEAR Normal CLEAR [facility] Comment on above: Performed By: #### U MICRO, ERUR, PREGU #### [facility] [address] [address] [address] Donald Schroeder Color (U) YELLOW Normal YELLOW [facility] Comment on above: Performed By: #### U MICRO, ERUR, PREGU #### [facility] [address] [address] [address] Donald AGUILERA A micrscopic examina tion will be performed if indicated. Normal [facility] Comment on above: Performed By: #### U MICRO, ERUR, PREGU #### [facility] [address] [address] [address] Donald Schroeder Glucose Ql (U) Negative Normal NEGATIVE [facility] Comment on above: Performed By: #### U MICRO, ERUR, PREGU #### [facility] [address] [address] [address] Donald Schroeder Hemoglobin Ql (U) Negative Normal NEGATIVE The [facility] Comment on above: Performed By: #### U MICRO, ERUR, PREGU #### [facility] [address] [address] [address] Donald Schroeder Ketones Ql (U) TRACE Abnormal NEGATIVE [facility] Comment on above: Performed By: #### U MICRO, ERUR, PREGU #### [facility] [address] [address] [address] Donald Schroeder LEUKOCYTES Negative Normal NEGATIVE [facility] Comment on above: Performed By: #### U MICRO, ERUR, PREGU #### [facility] [address] [address] [address] Donald Schroeder Nitrite Ql (U) Negative Normal NEGATIVE [facility] Comment on above: Performed By: #### U MICRO, ERUR, PREGU #### [facility] [address] [address] [address] Donald Schroeder pH (U) 5.0 [pH] Normal 5-9 [facility] Comment on above: Performed By: #### U MICRO, ERUR, PREGU #### [facility] [address] [address] [address] Donald Schroeder Protein (U) [Mass/Vol] 30 mg/dL Abnormal NEGATIVE/ TRACE [facility] Comment on above: Performed By: #### U MICRO, ERUR, PREGU #### [facility] [address] [address] [address] Donald Schroeder SPEC GRAVITY >=1.030 Abnormal 1.005-<=1.0 25 [facility] Comment on above: Performed By: #### U MICRO, ERUR, PREGU #### [facility] [address] [place] [address] Dr. Donald Schroeder UR MICRO IND INDICATED Normal [facility] Comment on above: Performed By: #### U MICRO, ERUR, PREGU #### [facility] [address] [address] [address] Donald Schroeder Urobilinogen Qn (U) 1.0 {Miguelina'U}/dL Normal 0.2 - 1.0 [facility] Comment on above: Performed By: #### U MICRO, ERUR, PREGU #### [facility] [address] [place] [address] Dr. Donald Schroeder URon 10-23-2022 , QUAL Negative Normal NEGATIVE The [facility] Comment on above: Performed By: #### U MICRO, ERUR, PREGU #### [facility] [address] [place] [address] Dr. Donald Schroeder URINE MICROSCOPIC ONLYon BACTERIA MODERATE Abnormal NONE SEEN [facility] Comment on above: Performed By: #### U MICRO, ERUR, PREGU #### [facility] [address] [place] [address] Dr. Donald Schroeder Bacteria identified Cx Nom (U) INDICATED Normal [facility] Comment on above: Performed By: #### U MICRO, ERUR, PREGU #### [facility] [address] [address] [address] Donald Schroeder CAST SEEN Abnormal NONE SEEN [facility] Comment on above: Performed By: #### U MICRO, ERUR, PREGU #### [facility] [address] [address] [address] Donald Schroeder Crystals LM Nom (Urine sed) NONE SEEN Normal NONE SEEN [facility] Comment on above: Performed By: #### U MICRO, ERUR, PREGU #### [facility] [address] [address] [address] Donald Schroeder Epithelial cells LM Ql (Urine sed) FEW Abnormal NONE SEEN /RARE [facility] Comment on above: Performed By: #### U MICRO, ERUR, PREGU #### [facility] [address] [place] [address] Dr. Donald Schroeder HYALINE CAST RARE Normal [facility] Comment on above: Performed By: #### U MICRO, ERUR, PREGU #### [facility] [address] [address] [address] Donald Schroeder MUCOUS MODERATE Abnormal NONE SEEN [facility] Comment on above: Performed By: #### U MICRO, ERUR, PREGU #### [facility] [address] [address] [address] Donald Schroeder RBC 2-5 Abnormal 0-2 [facility] Comment on above: Performed By: #### U MICRO, ERUR, PREGU #### [facility] [address] [address] [address] Donald Schroeder WBC 5-10 Abnormal NONE SEEN [facility] Comment on above: Performed By: #### U MICRO, ERUR, PREGU #### [facility] [address] [place] [address] Dr. Donald Schroeder XR ankle RT min 3V*on 2021 XR ankle RT min 3V* [facility] Main [place] [address] [place] [address] XRay Report Signed Patient: Betsy Sawyer MR#: [id number] 26 : 2000 Acct:[id number] Age/Sex: 21 / F ADM Date: 06/01/22 Loc: ER Room: Type: [facility] ER Attending Dr: Copies to: Christy Maher [...] Osman Polanco M.D.06/02/2022 8:43 AM Dictation Location: [place] [address] Transcribed By: [facility] 06/02/22 0843 Dictated By: Osman Polanco DO 06/02/22 0841 Signed By: 06/02/22 0843 [facility] TSHon 02-27-2022 TSH 1.662 uIU/mL Normal 0.470-4.680 [facility] Comment on above: Performed By: #### T SH #### [facility] [address] [place] [address] Dr. Donald Schroeder TSH RANGE SEE BELOW Normal [facility] Comment on above: Result Comment: <0.3 4 UIU/ml HYPERTHYROID 0.34-5.60 UIU/ml EUTHYROID >5.60 UIU/ml HYPOTHYROID Performed By: #### T SH #### [facility] [address] [place] [address] Dr. Donald Schroeder VIT B12 AND FOLATEon 022 Cobalamin (Vitamin B12) [Mass/Vol] 269.0 pg/mL Normal 239.0-931.0 [facility] Comment on above: Performed By: #### B 12FOL #### [facility] [address] [place] [address] Dr. Donald Schroeder FOLATE 19.80 ng/mL Normal 8.60-58.90 [facility] Comment on above: Performed By: #### B 12FOL #### [facility] [address] [address] [address] Donald Schroeder Echocardiogram - PEDSon 06- Echocardiogram - PEDS [facility] Pediatric Echo/ [address] [facility] [address] [place] [address] Patient Name: BETSY [facility]WYER [facility] Patient Status: OutpatientMRN/PID: [id number] Study Type: Echocardiogram - PEDSDate of : 2000 17 years Height/Weight: 165.00 cm / 84.10 kgGender: F BSA: 1.91 m2 Blood Pressure: 130 / 78 mmHgReading Physician: Maricel Luke MDRequested By: Kishor Fraga MDSonographer: Rachel Lombardo RUST, [facility] Diagnosis/ICD: Q25.1-Coarctation of aorta Indications: Coarctation s/p repair Procedure/CPT: 28435 Echocardiography-TTE Congenital Complete OR;87480 Echocardiography-Color Doppler Echo;32174 Echocardiography-Doppler Echo History:Co arctation of the aorta [...] on 04/14/2018 at 12:15:52 PM Final Normal [facility] Peds Cardiology - 3-19 y/oon 04-14-2018 Peds Cardiology - [age] y/o Chief ComplaintNew patient visit, S/P coar repair. Accompanied by mother. History of Present IllnessBetsy Sawyer is a 17 year old female who was referred by Dr. Stoll [facility] of elevated blood pressure, s/p [...] of aorta repair at age 4 at [facility]. Betsy was followed by Dr. Romero post surgery until 2007 when mother transferred care to [place] as it is closer to their home. Mother cannot remember the name of the animal nutritionist in [place], but was told to follow up in [...] done, see scanned results. Results/Data Echocardiogram - [id number] 11:09Scar Kishor Test NameResultFlagReferencePeds Echocardiogram(Report)1.3.12.2 .[id number] [facility] Pediatric Echo/ Lab [address] [address] Patient Name: BETSY SAWYER Study Location: [facility] Study Date: 04/14/2018 Patient Status: Outpatient MRN/PID: [id number] Study Type: Echocardiogram - PEDS Date of : 2000 Age: 17 years Height/Weight: 165.00 cm / 84.10 kg Gender: F BSA: 1.91 m2 Blood Pressure: 130 / 78 mmHg Reading Physician: Maricel Luke MD Requested By: Kishor Fraga MD Smoked Meat Preparer: Rachel Lombardo R[facility], [facility] Diagnosis/ICD: Q25.1-Coarctation of aorta Indications: Coarctation s/p repair Procedure/CPT: 55836 Echocardiography-TTE Congenital Complete OR;02466 Echocardiography-Color Doppler Echo;96966 Echocardiography-Doppler Echo History: Coarctation of the aorta [...] Status:Complete - RetrospectiveAuthorization; Done: 14Apr2018 Last Updated By:Astrdi Holder; 04/14/2018 11:32:46 AM;Ordered; For:Health Maintenance; Ordered By:Kishor Fraga; Lipid Panel; Source:Blood ([facility]); Status:Active; Requested for:14Apr2018; Perform:Lab Services - Lab To Draw (Blood Test); Due:[id number];Ordered; For:Health Maintenance; Ordered By:Kishor Fraga; Provider Impressions#1 [...] Recorded: 14Apr2018 11:45AMRecorded: 14Apr2018 10:43AMRecorded: 14Apr2018 10:41AMHeart Uzis12Vjzigbqsaqf21Eqkkuzfz994 , QYL145, LLE, Rerkoh455, RUE, DkduxbaYqmyvkzps70, RUE70, LLE, Pzyfyx05, RUE, SittingHeight5 ft 5.16 etWcbmsq418 lb 6.50 ozBMI Pirkvmgnby99.7BSA Calculated1.92BMI Wkryndaqwn07 %2-20 Stature Sebeecsgwn93 %2-20 Weight Mkjvgaxmyf69 %O2 Nchxgqaqct93 Normal Touchworks Vital Signs Date Time Vital Sign Value Performing Clinician Faci lity 12-16-2023 13:55-0500 Body height 167.6 cm [facility] Dias [facility] 12-16-2023 13:55-0500 Body mass index (BMI) [Ratio] 39.54 kg/m2 Christy Dias MD Work Phone: [facility] 12-16-2023 13:55-0500 Body weight 111.13 kg Christy Dias MD Work Phone: [facility] 12-16-2023 13:55-0500 Diastolic blood pressure 70 mm[Hg] Christy Dias MD Work Phone: Private Practice [facility] 12-16-2023 13:55-0500 Heart rate 103 /min Christy Dias MD Work Phone: [facility] 12-16-2023 13:55-0500 SaO2% (BldA) [Mass fraction] 100 % [facility] Dias MD [facility] 12-16-2023 13:55-0500 Systolic blood pressure 90 mm[Hg] Christy Dias MD Work Phone: [facility] System 06-01-2022 23:36-0400 Body temperature 98.4 [degF] GOLD BEATER-C Lalitha Arthur Work Phone: [facility] 06-01-2022 23:36-0400 Diastolic blood pressure 80 mm[Hg] GOLD BEATER-C Lalitha Arthur Work Phone: [facility] 06-01-2022 23:36-0400 Heart rate 80 /min GOLD BEATER-C Lalitha Arthur Work Phone: [facility] 06-01-2022 23:36-0400 Respiratory rate 20 /min GOLD BEATER-C Lalitha Arthur Work Phone: [facility] 06-01-2022 23:36-0400 SaO2% (BldA) [Mass fraction] 98 % GOLD BEATER-C Lalitha Arthur Work Phone: [facility] 06-01-2022 23:36-0400 Systolic blood pressure 166 mm[Hg] GOLD BEATER-C Lalitha Arthur Work Phone: [facility] Encounters Encounter Date Encounter Type Care Provider Facility Start: 12-25-2023 Telephone encounter Chico johnston RN [facility] Comment on above: Echo pending insuran ce Start: 12-16-2023 End: 12-16-2023 ambulatory CHRISTY DIAS [facility] Start: 12-16-2023 End: 12-16-2023 Office consultation new/estab patient 40 min Christy Dias MD Work Phone: [facility] Comment on above: Hx of CABG (Primary Dx); Coarctation of aorta Start: 12-15-2023 Chart abstracting Scanning Pro vider External [facility] Start: 12-15-2023 [facility] Start: 11-26-2023 Telephone encounter Isela beltran [facility] Start: 09-28-2023 ambulatory Facility:[facility] Start: 06-16-2023 ambulatory Torres ROLLINS Facility: Prison Start: 10-23-2022 End: 10-23-2022 ambulatory LALITHA GIBSON Facility:[facility] Start: 06-01-2022 End: 06-02-2022 Emergency department patient visit GOLD BEATER-Valerie Gibson Work Phone: [facility] Start: 03-25-2022 ambulatory LALITHA GIBSON Facility: [facility] Start: 02-27-2022 End: 02-28-[address] MASHA ALBRECHT Facility:[facility] Start: 04-14-2018 Ambulatory Kishor Fraga Facil ity:[id number] Procedures Date Procedure Procedure Detail Performing Clinician Start: 12-16-2023 Ecg routine ecg w/le ast 12 lds w/i&r Christy Dias MD Work Phone: Start: 06-01-2022 X-ray of right ankle GOLD BEATER -Valerie Lalitha Gibson Work Phone: History of coronary artery bypass grafting Hx of CABG Christy Dias MD Work Phone: Plan of Treatment Date Care Activity Detail Author Start: 12-16-2024 Adult BMI Screening Adult BMI Screen ing [facility] [employer] Start: 12-16-2024 Tobacco Screening [facility]ening [facility] Start: 01-20-2024 End: 01-20-2024 Patient encounter procedure [facility] Start: 12-16-2023 End: 12-16-2024 Echo complete W/O contrast Echo complete W/O contrast Echocardiography Routine Coarctation of aorta Expected: 12/16/2023, Expires: 12/16/2024 [employer] Work Phone: Comment on above: Expected: 12/16/2023 , Expires: 12/16/2024 Start: 12-16-2023 End: 12-16-2024 Holter monitor study Holter monitor 24-48 hour Cardiac Services Routine Coarctation of aorta Expected: 12/16/2023, Expires: 12/16/2024 [facility] [employer] Comment on above: Expected: 12/16/2023 , Expires: 12/16/2024 Start: 12-16-2023 End: 12-16-2023 Patient encounter procedure 12/16/2023 2:00 PM EST [facility] [address] [place] [address] Christy Dias MD [address] [place] [phone] [facility] Start: 07-03-2023 Influenza vaccination Influenza Vaccine [facility] Start: 06-21-2023 DTaP,Tdap and Td Vaccines (6 - Td or Tdap) DTaP,Tdap and Td Vaccines (6 - Td or Tdap) [facility] Start: 2022 Screening for malignant neoplasm of cervix Pap Smear [facility] Start: 2020 DTaP,Tdap and Td Vaccines (1 - Tdap) DTaP,Tdap and Td Vaccines (1 - Tdap) [facility] Start: 2019 Adult BMI Follow Up Plan Adult BMI Follow Up Plan [facility] Start: 2019 Adult BMI Screening Adult BMI Screen ing [facility] Start: 2013 Depression Screening Depression Scre ening [facility] Start: 2013 Tobacco Screening Tobacco Screening [facility] Start: 2001 Tobacco Counseling Tobacco Counselin g [facility] Patient Education How to Use Cru tches Walking Boot Ankle Sprain ED [facility] Work Phone: Patient referral [facility] Work Phone: POCT EKG POCT EKG ECG Rou isidra Hx of CABG 12/16/2023 [facility] Immunizations Immunization Date Immunization Notes Care Provider Fa cility 08-04-2017 influenza virus vaccine, unspecified formulation Christy Dias MD Work Phone: [facility] Payers Date Payer Category Payer Medicaid [employer] HMO [id number] 2023-Present [phone] [address] [place] [address] [id number] 2023 Medicaid [id number] 2001 Unknown [id number] 593 2001 Unknown [id number] 593 2001 Unknown [id number] 593 2001 Unknown [id number]. 593 2001 Unknown [id number]. 1286 1972 Unknown [id number]. 727 1959 Unknown [id number] 1959 Unknown [id number] Department of [facility] e ( and others) [facility] [id number] Self-pay Self Pay [id number] Unknown Insurance No Card [id number] Social History Date Type Detail Facility Start: 06-01-2022 Tobacco smoking status LAIS Never smoked tobacco (finding) [facility] Start: 2000 Sex Assigned At Female F [facility] Tobacco smoking status [facility] Tobacco smoking consumption unknown [facility] Start: 2000 Sex Assigned At Not on file [facility] Start: 12-15-2023 End: 12-16-2023 Gender identity Not on file [facility] Start: 12-15-2023 Tobacco smoking status NHIS Smokes tobacco daily [facility] History of tobacco use Cigarette Smoker [facility] Start: 12-15-2023 Tobacco use and exposure Smokeless tobacco non-user [facility] Start: 12-15-2023 End: 12-16-2023 History of Social function [facility] Start: 12-16-2023 Alcohol intake Lifetime non-d ulisses (finding) [facility] Within the past 12 months we worried whether our food would run out before we got money to buy more. Never True [facility] Clinical Notes 11-26-2023 to 12-25-2023 Telephone Encounter - Chico Carmona RN - 12/25/2023 1:30 PM ESTTelephone Encounter - Chico Carmona RN - 12/25/2023 1:30 PM Calin Dias MD - 12/16/2023 2:00 PM EST Note Date & Type Note Facility 12-25-2023 Miscellaneous Notes Received message from Lurdes at [facility] Precert Patient: Betsy Sawyer; 2000 ECHO pending/ needing additional info. Per [facility], looking for: Most recent EKG report showing a problem & TTE 05/16/2019 (last TTE completed) and Plan Holter Monitor - request results Tracking# [id number] P2P# [phone] Patient scheduled for holter monitor on 01/20/24 Stockfeed Miller called [facility], spoke to Shantel regarding p2p Tracking# [id number]. Call REF# [id number] Echo is currently in specialist review; no P2P needed yet. Call REF# [id number] They need updated information faxed to : Fax number [phone] w/tracking number Lurdes ying precert already sent the last ov note and EKG done. Stockfeed Miller does not see any additional test results. Stockfeed Miller attempted to call patient, phone rings and hangs up. LMOM on pts moms phone (no -HIPAA) asking her to have pt r/c to [facility] office to discuss past cardiac testing. 2nd attempt- Stockfeed Miller attempted to call patient with results and leave VM but no VM set up, unable to LMOM. 3rd attempt - Stockfeed Miller attempted to call patient with results and leave VM but no VM set up, unable to LMOM. Need an update from pt on any past testing info (with location) for records to obtain further information to send to [facility] for pending echo. Pts holter and echo scheduled for 01/20/24. Stockfeed Miller called [facility], spoke to Zoya to update. Attempt to contact letter sent to pt. documented in this encounter [facility] 12-25-2023 Telephone encounter Note Received message from Lurdes at [facility] Patient: Betsy Sawyer; 2000 ECHO pending/ needing additional info. Per [facility], looking for: Most recent EKG report showing a problem & TTE 05/16/2019 (last TTE completed) and Plan Holter Monitor - request results Tracking# [id number] P2P# [phone] Patient scheduled for holter monitor on 01/20/24 [facility] 12-25-2023 Telephone encounter Note Stockfeed Miller called [facility], spoke to Shantel regarding p2p Tracking# [id number]. Call REF# [id number] Echo is currently in specialist review; no P2P needed yet. Call REF# [id number] They need updated information faxed to : Fax number [phone] w/tracking number Lurdes stepan cordoba already sent the last ov note and EKG done. Stockfeed Miller does not see any additional test results. [facility] 12-25-2023 Telephone encounter Note Stockfeed Miller attempted to call patient, phone rings and hangs up. LMOM on pts moms phone (no -HIPAA) asking her to have pt r/c to [facility] office to discuss past cardiac testing. [facility] Private Practice [facility] 12-25-2023 Telephone encounter Note 2nd attempt- Stockfeed Miller attempted to call patient with results and leave VM but no VM set up, [facility] 12-25-2023 Telephone encounter Note 3rd attempt - Stockfeed Miller attempted to call patient with results and leave VM but no VM set up, unable to LMOM. Need an update from pt on any past testing info (with location) for records to obtain further information to send to [facility] for pending echo. Pts holter and echo scheduled for 01/20/24. Stockfeed Miller called [facility], spoke to Zoya to update. Attempt to contact letter sent to pt. [facility] 12-16-2023 History of Presen t illness Narrative Betsy Sawyer Date of visit: 12/16/2023 Date of : 2000 Age: 23 y.o. There is no problem list on file for this patient. No Known Allergies No current outpatient medications on file. No current facility-administered medications for this visit. Chief Complaint Patient presents with New Patient GOLD BEATER PT STATES SHE HAD OPEN HEART SURGERY @ AGE 3 ROUND TOP BABIES NO TESTS SCHED W/PT History of Present Illness Patient following up for history of coarct repair at the age of 3 she went to [facility] and had a surgical repair [...] scheduled for holter monitor and echo at [facility] 01/20/24 documented in this encounter [facility] 12-16-2023 Instructions Mel Keller CMA - 12/16/2023 2:00 PM EST Are You Ready To Kick The Habit? Free Tobacco Cessation Resources [facility] Services [facility] Centers provide all employees with free tobacco cessation services that include: Counseling to understand nicotine addiction Education about medications that can help you successfully quit Assistance with developing a plan to quit Call to set up an individual appointment or find out when group classes will be held: Mathew rader [facility]: [phone] [facility]: [phone] [facility]: [phone] [facility]: [phone] Quit Smoking Action Plan and Resources [facility] offers an eight-week, online smoking cessation plan to all [employer] [facility] employees, regardless of whether [employer] is your medical insurance provider. Go to www.mypromedica.[email or web address]/[email or web address] lness and click the Health Risk Assessment and Resources link to get started. In the [employer] menu, click Action Plans instead of Health Risk Assessment to access the Quit Smoking Action Plan. Additional smoking cessation resources are also available to all [employer] [facility] employees on the [employer] web page at [email or web address].Taktio/stu hernandez. [employer] Tobacco Cessation Program If [employer] is your medical insurance provider, there are more free resources available to you, including: No copays or deductibles on local tobacco cessation counseling services to help you quit Prescription assistance for tobacco cessation medications to help you quit For details about the tobacco cessation program available to [employer] members, go to www.Samplesaint.Software 2000 (Search: Tobacco Cessation Program). [place] Tobacco Quit Line 8-620-QVQU-NOW ( ) is a toll-free, telephonic service that helps [place] residents quit smoking and using tobacco. It is staffed by experts who tailor a quit plan for you and provide you with advice. [place] Tobacco Quit Line 1-465-ZFFX-NOW ( ) is a toll-free, telephonic service that helps [place] residents quit smoking and using tobacco. It is staffed by experts who tailor a quit plan for you and provide you with advice. Two weeks of nicotine replacement therapy may be provided at no charge, if needed. Additional Resources These national organizations also offer free information and resources to help you quit tobacco: [place] [employer]--www.cancer.org/healthy /stayawayfromtobacco [place] [employer]--www.heart.org (Search: Quit Smoking) Centers for Disease Control and Prevention--www.cdc.gov/tobacco [place] [employer]--www.lungusa.org documented in this encounter [facility] 12-15-2023 Miscellaneous Notes Left message for patient to remind them to bring their most current medication list with them to their appointment. documented in this encounter [facility] 12-15-2023 Telephone encounter Note Left message for patient to remind them to bring their most current medication list with them to their appointment. [facility] 11-26-2023 Miscellaneous Notes Patient called the office to schedule a biopsy [facility] told [facility] needed [facility]. I told the patient I would get her reports & check with our provider and I could call her back. I called the [facility] to get patient notes & results. Received visit note & pap results from 09/01/23 & scanned into patient's media. Does the patient need to be scheduled for a colposcopy? Please advise. Thank you. LVM for patient to return office call Pt returned call and was notified of not needing a colpo at this time. documented in this encounter [facility] 11-26-2023 Telephone encounter Note Patient called the office to schedule a biopsy stating [facility] & they told her she needed a biopsy. I told the patient I would get her reports & check with our provider and I could call her back. I called the [facility] to get patient notes & results. Received visit note & pap results from 09/01/23 & scanned into patient's media. Does the patient need to be scheduled for a colposcopy? Please advise. Thank you. [facility] 11-26-2023 Telephone encounter Note LVM for patient to return office call [facility] 11-26-2023 Telephone encounter Note Pt returned call and was notified of not needing a colpo at this time. Private Practice System Evaluation note No assessment inform ation available [facility] Work Phone: Evaluation note Diagnosis Hx of CABG- Primary Postsurgical aortocoronary bypass status Coarctation of aorta documented [facility] this [facility] SystemInstructionsNot on filedocumented in this encounter [facility] SystemInstructionsNot on filedocumented in this encounter [facility] SystemInstructionsNot on filedocumented in this encounter [facility] Purpose Family History No Family [...] MD [address] [place] [facility] [place] [address] [facility] [address] [place] [address] Phone: [phone] Referral ID Status Reason Start Date Expiration Date V isits Requested Visits Authorized [id number] Pending Review 12/16/2023 12/15/2024 1 1 Specialty Diagnoses / Procedures Referred By Carmella molina Referred To Contact Diagnoses Coarctation of aorta Procedures Echo complete W/O contrast Christy Dias MD [address] [facility] [place] [address] [facility] [address] [place] [address] Phone: [phone] Referral ID Status Reason Start Date Expiration Date V isits Requested Visits Authorized [id number] Pending Review 12/16/2023 12/15/2024 1 1 Additional Source Comments INFORMATION SOURCE (unrecogn ized section and content) DATE CREATED AUTHOR 04/20/2018 [employer] DATE CREATED AUTHOR AUTHOR'S ORGANIZ ATION 04/20/2018 [facility] DATE CREATED AUTHOR AUTHOR'S ORGANIZ ATION 06/12/2022 [facility] DATE CREATED AUTHOR AUTHOR'S ORGANIZ ATION 10/25/2022 [facility] DATE CREATED AUTHOR AUTHOR'S ORGANIZ ATION 06/26/2023 [facility] DATE CREATED AUTHOR AUTHOR'S ORGANIZ ATION 10/04/2023 [facility] DATE CREATED AUTHOR AUTHOR'S ORGANIZ ATION 12/18/2023 [facility] Care Teams (unrecognized sec tion and content) Team Status: Inactive Member Role Status Dates Lalitha Gibson NP-C Primary Care Provider Active Christy Maher Jr, MD Emergency Provider Active Team Status: Active Member Role Status Dates Lalitha Gibson NP-C Primary Care Provider Active 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 Receivable Manager Relationship Specialty Start Date End Date Lalitha Gibson APRN-CNP [address] [place] [phone] PCP - General Family Medicine 12/16/23 Accounts Receivable Manager Relationship Specialty Start Date End Date Lalitha Gibson APRN-CNP [address] [place] [address] PCP - General Family Medicine 12/16/23 Goals (unrecognized section and content) Goals may be documented in a n alternate sectionNot on filedocumented as of this encounterNot on filedocumented as of this encounterNot on filedocumented as of this encounterNot on filedocumented as of this encounterNot on filedocumented as of this encounter Reason for Visit (unrecogniz ed section and content) Reason Comments New Patient GOLD BEATER PT STATES SHE HAD OPEN HEART SURGERY [...] BE BASED ON THE PRIMARY CLINICAL RECORDS. [facility] [employer] [facility]. provides no warranty or guarantee of the accuracy or completeness of information in this document.
--- NOTE | 2024-07-24 09:31 | ED.GENADUL1 ---
HPI HPI - General Adult General Chief complaint: Headache Stated complaint: HEADACHE Time Seen by Provider: 07/24/24 09:27 Source: patient Mode of arrival: walk-in History of Present Illness HPI narrative: 24-year-old female presents for a headache. She states it is an ocular migraine and its mostly behind her left eye. It started yesterday and normally she sleeps and it gets better but it was still there today so she came in. No trauma fever or stiff neck. She has been nauseous and has been vomiting. She gets headaches like this from time to time but does not see a neurologist. Her headache has been continuous. Related Data Home Medications ?Medication ?Instructions ?Recorded ?Confirmed etonogestrel 0.12 mg-ethinyl See Rx Instructions vaginal 09/04/23 07/24/24 estradiol 0.015 mg/24 hr vaginal .COMPLEX ring (EluRyng) fluoxetine 20 mg capsule 20 mg PO DAILY 12/22/23 07/24/24 Allergies Allergy/AdvReac Type Severity Reaction Status Date / Time No Known Drug Allergies Allergy Verified 09/04/23 10:05 Opioid HPI Opioid Management Most Recent Opioid Data: Last Pain Scale 4 04/07/24 12:34 Last MAR Pain Assessment 07/24/24 11:16 Review of Systems ROS Narrative A ten point review of systems is negative except as noted above. [facility] Medical History (Updated 07/24/24 @ 11:17 by Reagan Gayle MD) Depression ?F32.A - Depression, unspecified (ICD-10) Social History Smoking status: Current every day smoker Exam Narrative Exam Narrative: Nurses note and vital signs reviewed and patient is not hypoxic. General: The patient appears well and in no apparent distress. Patient is resting comfortably on cart. Skin: Warm, dry, no pallor noted. There is no rash noted. Head: Normocephalic, atraumatic; neck supple no nuchal rigidity Eye: Normal conjunctiva, no drainage, EOMI. PERRL Ears, Nose, Mouth, and Throat: oral mucosa is moist. Nares patent. Cardiovascular: Regular Rate and Rhythm Respiratory: Patient is in no distress, no accessory muscle use, lungs are clear to auscultation, no wheezing, rales or rhonchi Back: non-tender GI: Soft and nontender Musculoskeletal: The patient has no evidence of calf tenderness, no pitting edema, symmetrical pulses noted bilaterally Neurological: A&O, normal speech, upper and lower extremity strength intact and symmetric Psychiatric: Cooperative Constitutional Vital Signs, click to edit/add: Last Vital Signs Temp 98.1 F 07/24/24 09:17 Pulse 85 07/24/24 09:17 Resp 16 07/24/24 09:17 BP 140/91 07/24/24 09:17 Pulse Ox 97 07/24/24 09:17 Course Vital Signs Vital signs: Vital Signs Temperature 98.1 F 07/24/24 09:17 Pulse Rate 85 07/24/24 09:17 Respiratory Rate 16 07/24/24 09:17 Blood Pressure 140/91 07/24/24 09:17 Pulse Oximetry 97 07/24/24 09:17 Temperature 98.1 F 07/24/24 09:17 Pulse Rate 85 07/24/24 09:17 Respiratory Rate 16 07/24/24 09:17 Blood Pressure 140/91 07/24/24 09:17 Pulse Oximetry 97 07/24/24 09:17 Medical Decision Making MDM Narrative Medical decision making narrative: The patient was feeling improved with Toradol, Solu-Medrol, Zofran, and Benadryl. She initially wanted some more pain medication so some morphine was ordered but then she changed her mind and was feeling good enough to go home. Treatment diagnosis and follow-up were discussed with the patient. Have no clinical suspicion of meningitis. Differential Diagnosis Differential Diagnosis: Migraine headache, nonspecific headache Discharge Plan Discharge Chief Complaint: Headache Clinical Impression: Headache Qualifiers: Headache type: unspecified Headache chronicity pattern: unspecified pattern Intractability: not intractable Qualified Code(s): R51.9 - Headache, unspecified Patient Disposition: Home, Self-Care Time of Disposition Decision: 11:17 Condition: Good Mode of Transportation: Private Vehicle Prescriptions / Home Meds: No Action etonogestrel-ethinyl estradiol [EluRyng] 0.12-0.015 mg/24 hr ring See Rx Instructions VAGINAL .COMPLEX Rx Instructions: vaginally every three weks; fluoxetine 20 mg capsule 20 mg PO DAILY Print Language: Pashto Instructions: Acute Headache (ED) Referrals: MANUEL GIBSON [Primary Care Provider] - 1 week
[2024-07-24] MEDS: DIPHENHYDRAMINE HCL 50 MG/ML VIAL 25 MG IV (09:43)
[2024-07-24] MEDS: METHYLPREDNISOLONE SOD SUCC PF 125 MG/2 ML VIAL IVP (09:43)
[2024-07-24] MEDS: 0.9 % SODIUM CHLORIDE 1,000 ML 1000 ML IV (09:43)
[2024-07-24] MEDS: KETOROLAC TROMETHAMINE 30 MG/ML VIAL IVP (09:43)
[2024-07-24] MEDS: ONDANSETRON PF 4 MG/2 ML VIAL IV (09:43)
== END 2024-07-24 11:40 | disposition home or self-care (01) ==
PROVIDERS: Emergency Provider Emergency Medicine; PCP Nurse Practitioner Family
DX: R51.9 Headache, unspecified (principal); F17.200 Nicotine dependence, unspecified, uncomplicated
CPT/HCPCS: 96361; 96374; 96375; 99284; J1200; J1885; J2405; J2919

== ENCOUNTER 2024-12-27 04:37 | Emergency (ER) | payer OTHER, SELFPAY ==
--- OUTSIDE RECORDS SUMMARY | 2024-12-27 04:43 | XMS_ITS | CCD ---
Author Organization [facility] Care Team Providers Care Pathology Tech Name Role Phone Philly Kishor Dong Unavailable Unavailable Federico Ashby Unavailable Unavail able Federico Ashby Unavailable Carey Gibson, SPECIAL NEEDS LIBRARIAN-C Lalitha Jeffers Primary Care Provider MD Christy [...] Rushing Admitting Unavailable Torres ROLLINS Referring Unavailable CHRISTY DIAS Attending Unavailable LALITHA GIBSON Primary Care Unavailable Unavailable Primary Care Provider Unavailemperatriz Gibson APRN-Lalitha GARCIA Primary Care Provider Medications Current Medications Medication Drug Class(es) Dates [...] Test Name Value Interpretation Reference Range Facility Alf Documentson 10-02-2023 Alf Documents [id number] Normal [facility] Alf Documentson 06-25-2023 Alf Documents [id number]#1.00CD:127 Normal [facility] CULTURE URINEon 10-23-2022 CULTURE URINE Culture Observations : NO GROWTH. [facility] Comment on above: Performed By: #### U RCX #### [facility] [address] [place] [address] Dr. Donald Schroeder ER URINE PROFILEon 2 Bilirubin Ql (U) MODERATE Abnormal NEGATIVE The [facility] Comment on above: Performed By: #### U MICRO, ERUR, PREGU #### [facility] [address] [address] [address] Donald Schroeder Clarity (U) CLEAR Normal CLEAR The [facility] Comment on above: Performed By: #### U MICRO, ERUR, PREGU #### [facility] [address] [address] [address] Donald Schroeder Color (U) YELLOW Normal YELLOW The [facility] Comment on above: Performed By: #### U MICRO, ERUR, PREGU #### [facility] [address] [address] [address] Donald AGUILERA A micrscopic examina tion will be performed if indicated. Normal The [facility] Comment on above: Performed By: #### U MICRO, ERUR, PREGU #### [facility] [address] [address] [address] Donald Schroeder Glucose Ql (U) Negative Normal NEGATIVE The [facility] Comment on above: Performed By: #### U MICRO, ERUR, PREGU #### [facility] [address] [address] [address] Donald Schroeder Hemoglobin Ql (U) Negative Normal NEGATIVE The [facility] Comment on above: Performed By: #### U MICRO, ERUR, PREGU #### [facility] [address] [address] [address] Donald Schroeder Ketones Ql (U) TRACE Abnormal NEGATIVE The [facility] Comment on above: Performed By: #### U MICRO, ERUR, PREGU #### [facility] [address] [address] [address] Donald Schroeder LEUKOCYTES Negative Normal NEGATIVE The [facility] Comment on above: Performed By: #### U MICRO, ERUR, PREGU #### [facility] [address] [address] [address] Donald Schroeder Nitrite Ql (U) Negative Normal NEGATIVE The [facility] Comment on above: Performed By: #### U MICRO, ERUR, PREGU #### [facility] [address] [address] [address] Donald Schroeder pH (U) 5.0 [pH] Normal 5-9 The [facility] Comment on above: Performed By: #### U MICRO, ERUR, PREGU #### [facility] [address] [address] [address] Donald Schroeder Protein (U) [Mass/Vol] 30 mg/dL Abnormal NEGATIVE/ TRACE The [facility] Comment on above: Performed By: #### U MICRO, ERUR, PREGU #### [facility] [address] [address] [address] Donlad Schroeder SPEC GRAVITY >=1.030 Abnormal 1.005-<=1.0 [facility] Comment on above: Performed By: #### U MICRO, ERUR, PREGU #### [facility] [address] [place] [address] Dr. Donald Schroeder UR MICRO IND INDICATED Normal The [facility] Comment on above: Performed By: #### U MICRO, ERUR, PREGU #### [facility] [address] [address] [address] Donald Schroeder Urobilinogen Qn (U) 1.0 {Miguelina'U}/dL Normal 0.2 - 1.0 The [facility] Comment on above: Performed By: #### U MICRO, ERUR, PREGU #### [facility] [address] [place] [address] Dr. Donald Schroeder URon 10-23-2022 , QUAL Negative Normal NEGATIVE The [facility] Comment on above: Performed By: #### U MICRO, ERUR, PREGU #### [facility] [address] [place] [address] Dr. Donald Schroeder URINE MICROSCOPIC ONLYon BACTERIA MODERATE Abnormal NONE SEEN The [facility] Comment on above: Performed By: #### U MICRO, ERUR, PREGU #### [facility] [address] [place] [address] Dr. Donald Schroeder Bacteria identified Cx Nom (U) INDICATED Normal The [facility] Comment on above: Performed By: #### U MICRO, ERUR, PREGU #### [facility] [address] [address] [address] Donald Schroeder CAST SEEN Abnormal NONE SEEN [facility] Comment on above: Performed By: #### U MICRO, ERUR, PREGU #### [facility] [address] [address] [address] Donald Schroeder Crystals LM Nom (Urine sed) NONE SEEN Normal NONE SEEN The [facility] Comment on above: Performed By: #### U MICRO, ERUR, PREGU #### [facility] [address] [address] [address] Donald Schroeder Epithelial cells LM Ql (Urine sed) FEW Abnormal NONE SEEN /RARE The [facility] Comment on above: Performed By: #### U MICRO, ERUR, PREGU #### [facility] [address] [place] [address] Dr. Donald Schroeder HYALINE CAST RARE Normal The [facility] Comment on above: Performed By: #### U MICRO, ERUR, PREGU #### [facility] [address] [address] [address] Donald Schroeder MUCOUS MODERATE Abnormal NONE SEEN The [facility] Comment on above: Performed By: #### U MICRO, ERUR, PREGU #### [facility] [address] [address] [address] Donald Schroeder RBC 2-5 Abnormal 0-2 The [facility] Comment on above: Performed By: #### U MICRO, ERUR, PREGU #### [facility] [address] [address] [address] Donald Schroeder WBC 5-10 Abnormal NONE SEEN The [facility] Comment on above: Performed By: #### U MICRO, ERUR, PREGU #### [facility] [address] [place] [address] Dr. Donald Schroeder XR ankle RT min 3V*on 2021 XR ankle RT min 3V* [facility] [place] [address] [place] [address] XRay Report Signed Patient: Betsy Sawyer MR#: [id number] 26 : 2000 Acct:[id number] Age/Sex: 21 / F ADM Date: 06/01/22 [...] Osman Polanco M.D.06/02/2022 8:43 AM Dictation Location: [place] [address] Transcribed By: [facility] 06/02/22 0843 Dictated By: Osman Polanco DO 06/02/22 0841 Signed By: 06/02/22 0843 [facility] TSHon 02-27-2022 TSH 1.662 uIU/mL Normal 0.470-4.680 [facility] Comment on above: Performed By: #### T SH #### [facility] [address] [place] [address] Dr. Donald Schroeder TSH RANGE SEE BELOW [facility] Comment on above: Result Comment: <0.3 4 UIU/ml HYPERTHYROID 0.34-5.60 UIU/ml EUTHYROID >5.60 UIU/ml HYPOTHYROID Performed By: #### T SH #### [facility] [address] [place] [address] Dr. Donald Schroeder VIT B12 AND FOLATEon 022 Cobalamin (Vitamin B12) [Mass/Vol] 269.0 pg/mL Normal 239.0-931.0 [facility] Comment on above: Performed By: #### B 12FOL #### [facility] [address] [place] [address] Dr. Donald Schroeder FOLATE 19.80 ng/mL Normal 8.60-58.90 [facility] Comment on above: Performed By: #### B 12FOL #### [facility] [address] [address] [address] Donald Schroeder Echocardiogram - PEDSon 06- Echocardiogram - PEDS [facility] Pediatric [facility]/ [id number] [facility], [place] [address] Patient Name: BETSY [facility]WYER [facility] Patient Status: OutpatientMRN/PID: [id number] Study Type: Echocardiogram - PEDSDate of : 2000 17 years Height/Weight: 165.00 cm / 84.10 kgGender: F BSA: 1.91 m2 Blood Pressure: 130 / 78 mmHgReading Physician: Maricel Luke MDRequested By: Kishor Fraga MDSonographer: Rachel Lombardo [facility] Diagnosis/ICD: Q25.1-Coarctation of aorta Indications: Coarctation s/p repair Procedure/CPT: 48203 Echocardiography-TTE Congenital Complete OR;44306 Echocardiography-Color Doppler Echo;13362 Echocardiography-Doppler Echo History:Co arctation of the aorta [...] on 04/14/2018 at 12:15:52 PM Final Normal [facility] Peds Cardiology - 3-19 y/oon 04-14-2018 Peds Cardiology - [age] y/o Chief ComplaintNew patient visit, S/P coar repair. Accompanied by mother. History of Present IllnessBetsy Sawyer is a 17 year old female who was referred by Dr. Stoll [facility] of [facility], [...] of aorta repair at age 4 at [facility]. Betsy was followed by Dr. Romero post surgery until 2007 when mother transferred care to [place] as it is closer to their home. Mother cannot remember the name of the director of training in [place], but was told to follow up in [...] done, see scanned results. Results/Data Echocardiogram - [id number] 11:09Scar Kishor Test NameResultFlagReferencePeds Echocardiogram(Report)[id number] [facility] Pediatric Echo/ Lab [address] [facility] [address] [facility] , [address] [place] [address] Patient Name: BETSY SAWYER Study Location: [facility] Study Date: 04/14/2018 Patient Status: Outpatient MRN/PID: [id number] Study Type: Echocardiogram - PEDS Date of : 2000 Age: 17 years Height/Weight: 165.00 cm / 84.10 kg Gender: F BSA: 1.91 m2 Blood Pressure: 130 / 78 mmHg Reading Physician: Maricel Luke MD Requested By: Kishor Fraga MD Taker Out: Rachel Lombardo [facility], [facility] Diagnosis/ICD: Q25.1-Coarctation of aorta Indications: Coarctation s/p repair Procedure/CPT: 09049 Echocardiography-TTE Congenital Complete OR;04514 Echocardiography-Color Doppler Echo;68418 Echocardiography-Doppler Echo History: Coarctation of the aorta [...] Ordered By:Kishor Fraga; Lipid Panel; Source:Blood ([facility]); Status:Active; Requested for:14Apr2018; Perform:Lab Services - Lab To Draw (Blood Test); Due:90Fgu9631;Ordered; For:Health Maintenance; Ordered By:Kishor Fraga; Provider Impressions#1 [...] Recorded: 14Apr2018 11:45AMRecorded: 14Apr2018 10:43AMRecorded: 14Apr2018 10:41AMHeart Xwhf26Drrlzyppknl46Rnibfdbn056 , BQT376, LLE, Drpmba896, RUE, DtvawgkRqdfgjtrd34, RUE70, LLE, Ztgwok89, RUE, SittingHeight5 ft 5.16 zeYqtxwm640 lb 6.50 ozBMI Fgbvydvryz61.7BSA Calculated1.92BMI Grtkuklbnw09 %2-20 Stature Uqhouaiwgd45 %2-20 Weight Twcvhfphnz23 %O2 Vfuzmsiphu94 Normal Touchworks Vital Signs Date Time Vital Sign Value Performing Clinician Faci lity 12-16-2023 13:55-0500 Body height 167.6 cm Christy Dias MD [facility] 12-16-2023 13:55-0500 Body mass index (BMI) [Ratio] 39.54 kg/m2 Christy Dias MD [facility] 12-16-2023 13:55-0500 Body weight 111.13 kg Christy Dias MD Work [facility] 12-16-2023 13:55-0500 Diastolic blood pressure 70 mm[Hg] Christy Dias MD Work Phone: [employer] [facility] 12-16-2023 13:55-0500 Heart rate 103 /min Christy Dias MD [facility]: [facility] 12-16-2023 13:55-0500 SaO2% (BldA) [Mass fraction] 100 % Christy Dias MD Work Phone[facility] 12-16-2023 13:55-0500 Systolic blood pressure 90 mm[Hg] Christy Dias MD Work Phone: [employer] [facility] 06-01-2022 23:36-0400 Body temperature 98.4 [degF] SPECIAL NEEDS LIBRARIAN-C Lalitha Kayla Work Phone: [facility] 06-01-2022 23:36-0400 Diastolic blood pressure 80 mm[Hg] SPECIAL NEEDS LIBRARIAN-C Lalitha Kayla Work Phone: [facility] 06-01-2022 23:36-0400 Heart rate 80 /min SPECIAL NEEDS LIBRARIAN-C Lalitha Kayla Work Phone: [facility] 06-01-2022 23:36-0400 Respiratory rate 20 /min SPECIAL NEEDS LIBRARIAN-C Lalitha Kayla Work Phone: [facility] 06-01-2022 23:36-0400 SaO2% (BldA) [Mass fraction] 98 % SPECIAL NEEDS LIBRARIAN-C Lalitha Kayla Work Phone: [facility] 06-01-2022 23:36-0400 Systolic blood pressure 166 mm[Hg] SPECIAL NEEDS LIBRARIAN-C Lalitha Kayla Work Phone: [facility] Encounters Encounter Date Encounter Type Care Provider Facility Start: 12-25-2023 Telephone encounter Chico johnston RN [facility] Comment on above: Echo pending insuran ce Start: 12-16-2023 End: 12-16-2023 ambulatory CHRISTY DIAS [facility] Start: 12-16-2023 End: 12-16-2023 Office consultation new/estab patient 40 min Christy Dias MD Work Phone: [facility] Comment on above: Hx of CABG (Primary Dx); Coarctation of aorta Start: 12-15-2023 Chart abstracting Scanning Pro vider External [facility] Start: 12-15-2023 [facility] Start: 11-26-2023 Telephone encounter Isela beltran [facility] Start: 09-28-2023 ambulatory Facility:[facility] Start: 06-16-2023 ambulatory Torres ROLLINS Facility: [facility] Start: 10-23-2022 End: 10-23-2022 ambulatory LALITHA GIBSON Facility:[facility] Start: 06-01-2022 End: 06-02-2022 Emergency department patient visit SPECIAL NEEDS LIBRARIAN-Valerie Gibson Work Phone: [facility] Start: 03-25-2022 ambulatory LALITHA GIBSON Facility: [facility] Start: 02-27-2022 End: 02-28-[address] MASHA ALBRECHT Facility:[facility] Start: 04-14-2018 Ambulatory Kishor Fraga Facil ity:9504 Procedures Date Procedure Procedure Detail Performing Clinician Start: 12-16-2023 Ecg routine ecg w/le ast 12 lds w/i&r Christy Dias MD Work Phone: Start: 06-01-2022 X-ray of right ankle SPECIAL NEEDS LIBRARIAN -Valerie Lalitha Gibson Work Phone: History of coronary artery bypass grafting Hx of CABG Christy Dias MD Work Phone: Plan of Treatment Date Care Activity Detail Author Start: 12-16-2024 Adult BMI Screening Adult BMI Screen ing [facility] Start: 12-16-2024 [facility] Start: 01-20-2024 End: 01-20-2024 Patient encounter procedure [facility] Start: 12-16-2023 End: 12-16-2024 Echo complete W/O contrast Echo complete W/O contrast Echocardiography Routine Coarctation of aorta Expected: 12/16/2023, Expires: 12/16/2024 [employer] Work Phone: Comment on above: Expected: 12/16/2023 , Expires: 12/16/2024 Start: 12-16-2023 End: 12-16-2024 Holter monitor study Holter monitor 24-48 hour Cardiac Services Routine Coarctation of aorta Expected: 12/16/2023, Expires: 12/16/2024 [facility] [employer] Comment on above: Expected: 12/16/2023 , Expires: 12/16/2024 Start: 12-16-2023 End: 12-16-2023 Patient encounter procedure 12/16/2023 2:00 PM EST Office Visit [facility] [address] [place] [address] Christy Dias MD [address] [place] [address] [facility] Start: 07-03-2023 Influenza vaccination Influenza Vaccine [facility] Start: 06-21-2023 DTaP,Tdap and Td Vaccines (6 - Td or Tdap) DTaP,Tdap and Td Vaccines (6 - Td or Tdap) [facility] Start: 2022 Screening for malignant neoplasm of cervix Pap Smear [facility] Start: 2020 DTaP,Tdap and Td Vaccines (1 - Tdap) DTaP,Tdap and Td Vaccines (1 - Tdap) [facility] Start: 2019 Adult BMI Follow Up Plan Adult BMI Follow Up Plan [facility] Start: 2019 Adult BMI Screening Adult BMI Screen ing [facility] Start: 2013 Depression Screening Depression Scre ening [facility] Start: 2013 Tobacco Screening Tobacco Screening [facility] Start: 2001 Tobacco Counseling Tobacco Counselin g [facility] Patient Education How to Use Cru tches Walking Boot Ankle Sprain ED [facility] Work Phone: Patient referral [facility] Work Phone: POCT EKG POCT EKG ECG Rou isidra Hx of CABG 12/16/2023 [facility] Immunizations Immunization Date Immunization Notes Care Provider Fa cility 08-04-2017 influenza virus vaccine, unspecified formulation Christy Dias MD Work Phone: [facility] Payers Date Payer Category Payer Medicaid [id number] 2023 Medicaid [employer] O [id number] 2023-Present [phone] [address] [place] [address] [id number] 2001 Unknown [id number] 593 2001 Unknown [id number]. 593 2001 Unknown [id number]. 593 2001 Unknown [id number]. 593 2001 Unknown [id number] [id number]. 1286 1972 Unknown [id number] [id number]. 727 1959 Unknown [id number] 1959 Unknown [id number] Department of [facility] e ( and others) [facility] [id number] Self-pay Self Pay [id number] Unknown Insurance No Card [id number] Social History Date Type Detail Facility Start: 06-01-2022 Tobacco smoking status TXIS Never smoked tobacco (finding) [facility] Start: 2000 Sex Assigned At Female [facility] Tobacco smoking status [facility] Tobacco smoking consumption unknown [facility] Start: 2000 Sex Assigned At Not on file [facility] Start: 12-15-2023 End: 12-16-2023 Gender identity Not on file [facility] Start: 12-15-2023 Tobacco smoking status NHIS Smokes tobacco daily [facility] History of tobacco use Cigarette Smoker [facility] Start: 12-15-2023 Tobacco use and exposure Smokeless tobacco non-user [facility] Start: 12-15-2023 End: 12-16-2023 History of Social function [facility] Start: 12-16-2023 Alcohol intake Lifetime non-d ulisses (finding) [facility] Within the past 12 months we worried whether our food would run out before we got money to buy more. Never True [facility] Clinical Notes 11-26-2023 to 12-25-2023 Telephone Encounter - Chico Carmona RN - 12/25/2023 1:30 PM ESTTelephone Encounter - Chico Carmona RN - 12/25/2023 1:30 PM Calin Dias MD - 12/16/2023 2:00 PM EST Note Date & Type Note Facility 12-25-2023 Miscellaneous Notes Received message from Lurdes at [facility] Precert Patient: Betsy Sawyer; 2000 ECHO pending/ needing additional info. Per [facility], looking for: Most recent EKG report showing a problem & TTE 05/16/2019 (last TTE completed) and Plan Holter Monitor - request results Tracking# [id number] P2P# [phone] Patient scheduled for holter monitor on 01/20/24 Property Assistant called [facility], spoke to Shantel regarding p2p Tracking# [id number]. Call REF# [id number] Echo is currently in specialist review; no P2P needed yet. Call REF# [id number] They need updated information faxed to : Fax number [phone] w/tracking number Lurdes ying precert already sent the last ov note and EKG done. Property Assistant does not see any additional test results. Property Assistant attempted to call patient, phone rings and hangs up. LMOM on pts moms phone (no -HIPAA) asking her to have pt r/c to [facility] office to discuss past cardiac testing. 2nd attempt- Property Assistant attempted to call patient with results and leave VM but no VM set up, unable to LMOM. 3rd attempt - Property Assistant attempted to call patient with results and leave VM but no VM set up, unable to LMOM. Need an update from pt on any past testing info (with location) for records to obtain further information to send to [facility] for pending echo. Pts holter and echo scheduled for 01/20/24. Property Assistant called [facility], spoke to Zoya to update. Attempt to contact letter sent to pt. documented in this encounter [facility] 12-25-2023 Telephone encounter Note Received message from Lurdes at [employer] Patient: Betsy Sawyer; 2000 ECHO pending/ needing additional info. Per [facility], looking for: Most recent EKG report showing a problem & TTE 05/16/2019 (last TTE completed) and Plan Holter Monitor - request results Tracking# [id number] P2P# [phone] Patient scheduled for holter monitor on 01/20/24 [facility] 12-25-2023 Telephone encounter Note Property Assistant called [facility], spoke to Shantel regarding p2p Tracking# [id number]. Call REF# [id number] Echo is currently in specialist review; no P2P needed yet. Call REF# [id number] They need updated information faxed to : Fax number [phone] w/tracking number Lurdes stepan cordoba already sent the last ov note and EKG done. Property Assistant does not see any additional test results. [facility] 12-25-2023 Telephone encounter Note Property Assistant attempted to call patient, phone rings and hangs up. LMOM on pts moms phone (no -HIPAA) asking her to have pt r/c to [facility] office to discuss past cardiac testing. [facility] [employer] [facility] 12-25-2023 Telephone encounter Note 2nd attempt- Property Assistant attempted to call patient with results and leave VM but no VM set up, unable to LMOM. [facility] 12-25-2023 Telephone encounter Note 3rd attempt - Property Assistant attempted to call patient with results and leave VM but no VM set up, unable to LMOM. Need an update from pt on any past testing info (with location) for records to obtain further information to send to [facility] for pending echo. Pts holter and echo scheduled for 01/20/24. Property Assistant called [facility], spoke to Zoya to update. Attempt to contact letter sent to pt. [facility] 12-16-2023 History of Presen t illness Narrative Betsy Sawyer Date of visit: 12/16/2023 Date of : 2000 Age: 23 y.o. There is no problem list on file for this patient. No Known Allergies No current outpatient medications on file. No current facility-administered medications for this visit. Chief Complaint Patient presents with New Patient SPECIAL NEEDS LIBRARIAN PT STATES SHE HAD OPEN HEART SURGERY @ AGE 3 [facility] NO TESTS SCHED W/PT History of Present Illness Patient following up for history of coarct repair at the age of 3 she went to [facility] and had a surgical repair [...] scheduled for holter monitor and echo at [facility] 01/20/24 documented in this encounter [facility] 12-16-2023 Instructions Mel Keller CMA - 12/16/2023 2:00 PM EST Are You Ready To Kick The Habit? Free Tobacco Cessation Resources [facility] Services [facility] provide all employees with free tobacco cessation services that include: Counseling to understand nicotine addiction Education about medications that can help you successfully quit Assistance with developing a plan to quit Call to set up an individual appointment or find out when group classes will be held: Mathew rader [facility]: [phone] [facility]: [phone] [facility]: [phone] [facility]: [phone] Quit Smoking Action Plan and Resources [facility] offers an eight-week, online smoking cessation plan to all [facility] employees, regardless of whether [employer] is your medical insurance provider. Go to www.mypromedica.org/employeewel lness and click the Health Risk Assessment and Resources link to get started. In the [employer]or[employer] menu, click Action Plans instead of Health Risk Assessment to access the Quit Smoking Action Plan. Additional smoking cessation resources are also available to all [facility] employees on the [employer] web page at www.[employer]/stu hernandez. [employer] Tobacco Cessation Program If [employer] is your medical insurance provider, there are more free resources available to you, including: No copays or deductibles on local tobacco cessation counseling services to help you quit Prescription assistance for tobacco cessation medications to help you quit For details about the tobacco cessation program available to [employer] members, go to www.[employer].Reclog (Search: Tobacco Cessation Program). [place] Tobacco Quit Line 8-730-EISW-NOW ( ) is a toll-free, telephonic service that helps [place] residents quit smoking and using tobacco. It is staffed by experts who tailor a quit plan for you and provide you with advice. [place] Tobacco Quit Line 5-589-SCHQ-NOW ( ) is a toll-free, telephonic service that helps [place] residents quit smoking and using tobacco. It is staffed by experts who tailor a quit plan for you and provide you with advice. Two weeks of nicotine replacement therapy may be provided at no charge, if needed. Additional Resources These national organizations also offer free information and resources to help you quit tobacco: [place] [employer]--www.cancer.org/healthy /stayawayfromtobacco [place] [employer]--www.heart.org (Search: Quit Smoking) Centers for Disease Control and Prevention--www.cdc.gov/tobacco [place] [employer]--www.lungusa.org documented in this encounter [facility] 12-15-2023 Miscellaneous Notes Left message for patient to remind them to bring their most current medication list with them to their appointment. documented in this encounter [facility] 12-15-2023 Telephone encounter Note Left message for patient to remind them to bring their most current medication list with them to their appointment. [facility] 11-26-2023 Miscellaneous Notes Patient called the office to schedule a biopsy [facility] & [facility] told her she needed a biopsy. I told the patient I would get her reports & check with our provider and I could call her back. I called the [facility] to get patient notes & results. Received visit note & pap results from 09/01/23 & scanned into patient's media. Does the patient need to be scheduled for a colposcopy? Please advise. Thank you. LVM for patient to return office call Pt returned call and was notified of not needing a colpo at this time. documented in this encounter [facility] 11-26-2023 Telephone encounter Note Patient called the office to schedule a biopsy stating [facility] & they told her she needed a biopsy. I told the patient I would get her reports & check with our provider and I could call her back. I called the [facility] to get patient notes & results. Received visit note & pap results from 09/01/23 & scanned into patient's media. Does the patient need to be scheduled for a colposcopy? Please advise. Thank you. [facility] 11-26-2023 Telephone encounter Note LVM for patient to return office call [facility] 11-26-2023 Telephone encounter Note Pt returned call and was notified of not needing a colpo at this time. [employer] Evaluation note No assessment inform ation available [facility] Work Phone: Evaluation note Diagnosis Hx of CABG- Primary Postsurgical aortocoronary bypass status Coarctation of aorta documented in this encounter [facility] filed[facility] in this encounter [facility] SystemInstructionsNot on filedocumented in this encounter [facility] SystemInstructionsNot on filedocumented in this encounter [facility] System[facility]ructionsNot on filedocumented in this encounter [facility] Summary Purpose Family History No Family [...] MD [address] [place] [facility] [place] [address] [facility] [address] [place] [address] Phone: [phone] Referral ID Status Reason Start Date Expiration Date V isits Requested Visits Authorized [id number] Pending Review 12/16/2023 12/15/2024 1 1 Specialty Diagnoses / Procedures Referred By Carmella molina Referred To Contact Diagnoses Coarctation of aorta Procedures Echo complete W/O contrast Christy Dias MD [address] [facility] [place] [address] [facility] [address] [place] [address] Phone: [phone] Referral ID Status Reason Start Date Expiration Date V isits Requested Visits Authorized [id number] Pending Review 12/16/2023 12/15/2024 1 1 Additional Source Comments INFORMATION SOURCE (unrecogn ized section and content) DATE CREATED AUTHOR 04/20/2018 [employer] DATE CREATED AUTHOR AUTHOR'S ORGANIZ ATION 04/20/2018 [facility] DATE CREATED AUTHOR AUTHOR'S ORGANIZ ATION 06/12/2022 [facility] DATE CREATED AUTHOR AUTHOR'S ORGANIZ ATION 10/25/2022 [facility] DATE CREATED AUTHOR AUTHOR'S ORGANIZ ATION 06/26/2023 [facility] DATE CREATED AUTHOR AUTHOR'S ORGANIZ ATION 10/04/2023 Rojas [facility] DATE CREATED AUTHOR AUTHOR'S ORGANIZ ATION 12/18/2023 [facility] Care Teams (unrecognized sec tion and content) Team Status: Inactive Member Role Status Dates Lalitha Gibson NP-C Primary Care Provider Active Christy Maher Jr, MD Emergency Provider Active Team Status: Active Member Role Status Dates Lalitha Gibson NP-C Primary Care Provider Active Pathology Tech Relationship Specialty Start Date End Date Lalitha Gibson APRN-CNP [address] [place] [address] [phone] PCP - General Family Medicine 12/16/23 Pathology Tech Relationship Specialty Start Date End Date Lalitha Gibson APRN-CNP [address] [place] [address] PCP - General Family Medicine 12/16/23 Goals (unrecognized section and content) Goals may be documented in a n alternate sectionNot on filedocumented as of this encounterNot on filedocumented as of this encounterNot on filedocumented as of this encounterNot on filedocumented as of this encounterNot on filedocumented as of this encounter Reason for Visit (unrecogniz ed section and content) Reason Comments 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 [facility] [email or web address] [facility]. provides no warranty or guarantee of the accuracy or completeness of information in this document.
[2024-12-27 04:47] VITALS: BP 129/97; PULSE 117; TEMP 38.3; O2SAT 100; BMI 39.4
--- NOTE | 2024-12-27 05:06 | ED.URI1 ---
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 The symptoms have been present for the past 3 days. She states she took some DayQuil yesterday during the day that helped her but her symptoms have returned. She has not vomited. She is not having any chest pain. She has an occasional dry cough. Related Data Home Medications ?Medication ?Instructions ?Recorded ?Confirmed etonogestrel 0.12 mg-ethinyl See Rx Instructions vaginal 09/04/23 07/24/24 estradiol 0.015 mg/24 hr vaginal .COMPLEX ring (EluRyng) fluoxetine 20 mg capsule 20 mg PO DAILY 12/22/23 07/24/24 Allergies Allergy/AdvReac Type Severity Reaction Status Date / Time No Known Drug Allergies Allergy Verified 12/27/24 04:54 Review of Systems ROS Status of ROS 10 or more systems reviewed and unremarkable except as noted in history and below [facility] Medical History (Updated 12/27/24 @ 05:59 by Emmie Stokes MD) Depression ?F32.A - Depression, unspecified (ICD-10) Social History Smoking status: Current every day smoker Little interest or pleasure in doing things: not at all Feeling down, depressed, or hopeless: not at all Exam Narrative Exam Narrative: Vital signs and Nursing Notes reviewed: Patient is febrile, tachycardic, blood pressure is stable, she is not hypoxic with pulse ox of 100% on room air General: Awake, alert, oriented, nontoxic but mildly ill and uncomfortable appearing overweight female, no respiratory distress HEENT: Normocephalic atraumatic, mucous membranes are moist and pink, eyes are clear, normal conjunctiva, vision is grossly intact, posterior pharynx is normal in appearance. Tympanic membranes are normal bilaterally Neck: Supple, no meningeal signs, no anterior or posterior cervical lymphadenopathy Chest: Lungs are clear to auscultation with good air entry, there is no wheezing rhonchi or rales appreciated no accessory muscle use, patient is speaking in complete sentences-no chest wall tenderness to palpation CVS: Regular rate and rhythm S1-S2, tachycardic at 117, no murmurs rubs or gallops, pulses are brisk and equal bilaterally ABD: Soft, nondistended, nontender, no rebound guarding or rigidity, bowel sounds are normal, no pulsatile masses appreciated Extremities: Moving all extremities, no lower extremity tenderness or swelling noted, negative Homans' sign, pulses are brisk and equal bilaterally Skin: Normal in appearance without rash,pallor, petechiae or purpura Neuro: No focal deficits Constitutional Vital Signs, click to edit/add: Last Vital Signs Temp 100.9 F H 12/27/24 04:47 Pulse 117 H 12/27/24 04:47 Resp 16 12/27/24 04:47 BP 129/97 H 12/27/24 04:47 Pulse Ox 100 12/27/24 05:11 O2 Del Method Room Air 12/27/24 05:11 Course Vital Signs Vital signs: Vital Signs Temperature 100.9 F H 12/27/24 04:47 Pulse Rate 117 H 12/27/24 04:47 Respiratory Rate 16 12/27/24 04:47 Blood Pressure 129/97 H 12/27/24 04:47 Pulse Oximetry 100 12/27/24 04:47 Oxygen Delivery Method Room Air 12/27/24 04:47 Temperature 100.9 F H 12/27/24 04:47 Pulse Rate 117 H 12/27/24 04:47 Respiratory Rate 16 12/27/24 04:47 Blood Pressure 129/97 H 12/27/24 04:47 Pulse Oximetry 100 12/27/24 05:11 Oxygen Delivery Method Room Air 12/27/24 05:11 MDM - URI/Sore Throat MDM Narrative Medical decision making narrative: This 24-year-old female presents for evaluation of multiple complaints, she has a fever, chills, headache, ear pain, nasal congestion and dry cough. Her lungs are clear, abdomen is soft. She has also had diarrhea. She denies any chest pain or shortness of breath. She was medicated emergency department with IM Toradol and Tylenol and Zofran. She is positive for influenza A. This was discussed with her. She will be discharged home with recommendation for Tylenol, Motrin and plenty of fluids. She will be given a note for work for today. Lab Data Labs: Lab Results 12/27/24 Range/Units 05:00 Influenza Type A Ag Positive A Influenza Type B Ag Negative SARS-CoV-2 Ag (CV2AG) Negative (NEGATIVE) Discharge Plan Discharge Chief Complaint: Upper Respiratory Infection Clinical Impression: Influenza Patient Disposition: Home, Self-Care Time of Disposition Decision: 05:59 Prescriptions / Home Meds: No Action etonogestrel-ethinyl estradiol [EluRyng] 0.12-0.015 mg/24 hr ring See Rx Instructions VAGINAL .COMPLEX Rx Instructions: vaginally every three weks; fluoxetine 20 mg capsule 20 mg PO DAILY Print Language: Hungarian Instructions: Influenza (ED) Referrals: MANUEL GIBSON [Primary Care Provider] - 1 week
[2024-12-27 05:11] VITALS: O2SAT 100
[2024-12-27] MEDS: ACETAMINOPHEN 325 MG TABLET 650 MG PO (05:33)
[2024-12-27] MEDS: KETOROLAC TROMETHAMINE 60 MG/2 ML VIAL IM (05:34)
[2024-12-27] MEDS: ONDANSETRON 4 MG RAPDIS TABLET SL (05:34)
[2024-12-27 05:45] LABS: Influenza Virus A Antigen Positive; Influenza Virus B Antigen Negative; Internal Control Within Normal Limits; SARS-CoV-2 Ag NEGATIVE (NEGATIVE)
[2024-12-27 06:09] VITALS: PULSE 106; TEMP 37.6; O2SAT 99
== END 2024-12-27 06:11 | disposition home or self-care (01) ==
PROVIDERS: Emergency Provider Emergency Medicine; PCP Nurse Practitioner Family
DX: J10.1 Influenza due to other identified influenza virus with other respiratory manifestations (principal); R50.9 Fever, unspecified; R51.9 Headache, unspecified; R05.9 Cough, unspecified; R00.0 Tachycardia, unspecified; H92.03 Otalgia, bilateral; R11.0 Nausea; R19.7 Diarrhea, unspecified; F17.200 Nicotine dependence, unspecified, uncomplicated
CPT/HCPCS: 87804; 87811; 96372; 99284; J1885; Q0162

== ENCOUNTER 2025-01-11 10:57 | Outpatient (OUT) | payer OTHER, SELFPAY ==
--- OUTSIDE RECORDS SUMMARY | 2025-01-11 11:20 | XMS_ITS | CCD ---
Author Organization [facility] Care Team Providers Care Machine Feeder Raw Stock Name Role Phone Philly Kishor Dong Unavailable Unavailable Federico Ashby Unavailable Unavail able Federico Ashby Unavailable Carey Gibson, PLANT CONTROLS SPECIALIST-C Lalitha Jeffers Primary Care Provider MD Christy [...] Test Name Value Interpretation Reference Range Facility F[facility] Documentson 10-02-2023 [facility] Documents [id number] Normal [facility] F[facility] Documentson 06-25-2023 [facility] Documents [id number]#[id number]:127 Normal [facility] CULTURE URINEon 10-23-2022 CULTURE URINE Culture Observations : NO GROWTH. Normal [facility] Comment on above: Performed By: #### U RCX #### [facility] [address] [place] [address] Dr. Donald Schroeder ER URINE PROFILEon 2 Bilirubin Ql (U) MODERATE Abnormal NEGATIVE [facility] Comment on above: Performed By: #### U MICRO, ERUR, PREGU #### [facility] [address] [address] [address] Donald Schroeder Clarity (U) CLEAR Normal CLEAR [facility] Comment on above: Performed By: #### U MICRO, ERUR, PREGU #### [facility] [address] [address] [address] Donald Schroeder Color (U) YELLOW Normal YELLOW The [facility] Comment on above: Performed By: #### U MICRO, ERUR, PREGU #### [facility] [address] [address] [address] Donald AGUILERA A micrscopic examina tion will be performed if indicated. Normal [facility] Comment on above: Performed By: #### U MICRO, ERUR, PREGU #### [facility] [address] [address] [address] Donald Schroeder Glucose Ql (U) Negative Normal NEGATIVE [facility] Comment on above: Performed By: #### U MICRO, ERUR, PREGU #### [facility] [address] [address] [address] Donald Schroeder Hemoglobin Ql (U) Negative Normal NEGATIVE [facility] Comment on above: Performed By: #### U MICRO, ERUR, PREGU #### [facility] [address] [address] [address] Donald Schroeder Ketones Ql (U) TRACE Abnormal NEGATIVE [facility] Comment on above: Performed By: #### U MICRO, ERUR, PREGU #### [facility] [address] [address] [address] Donald Schroeder LEUKOCYTES Negative Normal NEGATIVE The [facility] Comment on above: Performed By: #### U MICRO, ERUR, PREGU #### [facility] [address] [address] [address] Donald Schroeder Nitrite Ql (U) Negative Normal NEGATIVE [facility] Comment on above: Performed By: #### U MICRO, ERUR, PREGU #### [facility] [address] [address] [address] Donald Schroeder pH (U) 5.0 [pH] Normal 5-9 [facility] Comment on above: Performed By: #### U MICRO, ERUR, PREGU #### [facility] [address] [address] [address] Donald Schroeder Protein (U) [Mass/Vol] 30 mg/dL Abnormal NEGATIVE/ TRACE The [facility] Comment on above: Performed By: #### U MICRO, ERUR, PREGU #### [facility] [address] [address] [address] Donald Schroeder SPEC GRAVITY >=1.030 Abnormal 1.005-<=1.0 25 [facility] Comment on above: Performed By: #### U MICRO, ERUR, PREGU #### [facility] [address] [place] [address] Dr. Donald Schroeder UR MICRO IND INDICATED Normal The [facility] Comment on above: Performed By: #### U MICRO, ERUR, PREGU #### [facility] [address] [address] [address] Donald Schroeder Urobilinogen Qn (U) 1.0 {Miguelina'U}/dL Normal 0.2 - 1.0 [facility] Comment on above: Performed By: #### U MICRO, ERUR, PREGU #### [facility] [address] [place] [address] Dr. Donald Schroeder URon 10-23-2022 , QUAL Negative Normal NEGATIVE [facility] Comment on above: Performed By: #### U MICRO, ERUR, PREGU #### [facility] [address] [place] [address] Dr. Donald Schroeder URINE MICROSCOPIC ONLYon BACTERIA MODERATE Abnormal NONE SEEN The [facility] Comment on above: Performed By: #### U MICRO, ERUR, PREGU #### [facility] [address] [place] [address] Dr. Donald Schroeder Bacteria identified Cx Nom (U) INDICATED Normal [facility] Comment on above: Performed By: #### U MICRO, ERUR, PREGU #### [facility] [address] [address] [address] Donald Schroeder CAST SEEN Abnormal NONE SEEN [facility] Comment on above: Performed By: #### U MICRO, ERUR, PREGU #### [facility] [address] [address] [address] Donald Schroeder Crystals LM Nom (Urine sed) NONE SEEN Normal NONE SEEN The [facility] Comment on above: Performed By: #### U MICRO, ERUR, PREGU #### [facility] [address] [address] [address] Donald Schroeder Epithelial cells LM Ql (Urine sed) FEW Abnormal NONE SEEN /RARE The [facility] Comment on above: Performed By: #### U MICRO, ERUR, PREGU #### [facility] [address] [place] [address] Dr. Donald Schroeder HYALINE CAST RARE Normal The [facility] Comment on above: Performed By: #### U MICRO, ERUR, PREGU #### [facility] [address] [address] [address] Donald Schroeder MUCOUS MODERATE Abnormal NONE SEEN The [facility] Comment on above: Performed By: #### U MICRO, ERUR, PREGU #### [facility] [address] [address] [address] Donald Schroeder RBC 2-5 Abnormal 0-2 [facility] Comment on above: Performed By: #### U MICRO, ERUR, PREGU #### [facility] [address] [address] [address] Donald Schroeder WBC 5-10 Abnormal NONE SEEN The [facility] Comment on above: Performed By: #### U MICRO, ERUR, PREGU #### [facility] [address] [place] [address] Dr. Donald Schroeder XR ankle RT min 3V*on 2021 XR ankle RT min 3V* [facility] [place] [address] [place] [address] XRay Report Signed Patient: Betsy Sawyer MR#: [id number] 26 : 2000 Acct:[id number] Age/Sex: 21 / F ADM Date: 06/01/22 Loc: ER Room: Type: [facility] ER Attending Dr: Copies to: [...] Osman Polanco M.D.06/02/2022 8:43 AM Dictation Location: [place] [address] Transcribed By: [facility] 06/02/22 0843 Dictated By: Osman Polanco DO 06/02/22 0841 Signed By: 06/02/22 0843 [facility] TSHon 02-27-2022 TSH 1.662 uIU/mL Normal 0.470-4.680 [facility] Comment on above: Performed By: #### T SH #### [facility] [address] [place] [address] Dr. Donald Schroeder TSH RANGE SEE BELOW Normal [facility] Comment on above: Result Comment: <0.3 4 UIU/ml HYPERTHYROID 0.34-5.60 UIU/ml EUTHYROID >5.60 UIU/ml HYPOTHYROID Performed By: #### T SH #### [facility] [address] [place] [address] Dr. Donald Schroeder VIT B12 AND FOLATEon 022 Cobalamin (Vitamin B12) [Mass/Vol] 269.0 pg/mL Normal 239.0-931.0 [facility] Comment on above: Performed By: #### B 12FOL #### [facility] [address] [place] [address] Dr. Donald Schroeder FOLATE 19.80 ng/mL Normal 8.60-58.90 [facility] Comment on above: Performed By: #### B 12FOL #### [facility] [address] [address] [address] Donald Schroeder Echocardiogram - PEDSon 06- Echocardiogram - PEDS [facility] Pediatric Echo/ [id number] [facility] [address], [place] [address] Patient Name: BETSY SAWYER [facility]: [facility] Patient Status: OutpatientMRN/PID: [id number] Study Type: Echocardiogram - PEDSDate of : 2000 17 years Height/Weight: 165.00 cm / 84.10 kgGender: F BSA: 1.91 m2 Blood Pressure: 130 / 78 mmHgReading Physician: Maricel Luke MDRequested By: Kishor Fraga MDSonographer: Rachel Lombardo [facility] Diagnosis/ICD: Q25.1-Coarctation of aorta Indications: Coarctation s/p repair Procedure/CPT: 61906 Echocardiography-TTE Congenital Complete OR;82244 Echocardiography-Color Doppler Echo;27399 Echocardiography-Doppler Echo History:Co arctation of the aorta [...] on 04/14/2018 at 12:15:52 PM Final Normal [facility] Peds Cardiology - 3-19 y/oon 04-14-2018 Peds Cardiology - [age] y/o Chief ComplaintNew patient visit, S/P coar repair. Accompanied by mother. History of Present IllnessBetsy Sawyer is a 17 year old female who was referred by Dr. Stoll [facility] of [facility], s/p [...] of aorta repair at age 4 at [facility]. Betsy was followed by Dr. Romero post surgery until 2007 when mother transferred care to [place] as it is closer to their home. Mother cannot remember the name of the environmental health aide in [place], but was told to follow up in [...] done, see scanned results. Results/Data Echocardiogram - [id number] 11:09Scar Kishor Test NameResultFlagReferencePeds Echocardiogram(Report)[id number] [id number] [facility] Pediatric Echo/ Lab [address] , [address] [address] Patient Name: BETSY SAWYER Study Location: [facility] Study Date: 04/14/2018 Patient Status: Outpatient MRN/PID: [id number] Study Type: Echocardiogram - PEDS Date of : 2000 Age: 17 years Height/Weight: 165.00 cm / 84.10 kg Gender: F BSA: 1.91 m2 Blood Pressure: 130 / 78 mmHg Reading Physician: Maricel Luke MD Requested By: Kishor Fraga MD Photo Lab Technician: Rachel Lombardo [facility] Diagnosis/ICD: Q25.1-Coarctation of aorta Indications: Coarctation s/p repair Procedure/CPT: 64775 Echocardiography-TTE Congenital Complete OR;00206 Echocardiography-Color Doppler Echo;48095 Echocardiography-Doppler Echo History: Coarctation of the aorta [...] Ordered By:Kishor Fraga; Lipid Panel; Source:Blood ([facility]); Status:Active; Requested for:14Apr2018; Perform:Lab Services - Lab To Draw (Blood Test); Due:[id number];Ordered; For:Health Maintenance; Ordered By:Kishor Fraga; Provider Impressions#1 [...] Recorded: 14Apr2018 11:45AMRecorded: 14Apr2018 10:43AMRecorded: 14Apr2018 10:41AMHeart Iyjr87Wjqcbqehcjv81Ffzcsqud373 , EWF493, LLE, Vyxave646, RUE, TlocfxeDwuchpppi21, RUE70, LLE, Kyxzmv30, RUE, SittingHeight5 ft 5.16 xiFpxxxx584 lb 6.50 ozBMI Qvchzrygyo71.7BSA Calculated1.92BMI Oeyekhzexc48 %2-20 Stature Esexspqqcm10 %2-20 Weight Xycunkfzau48 %O2 Qnkjbgguuc87 Normal [facility] Vital Signs Date Time Vital Sign Value Performing Clinician Faci lity 12-16-2023 13:55-0500 Body height 167.6 cm Christ[facility] Dias MD [facility] 12-16-2023 13:55-0500 Body mass index (BMI) [Ratio] 39.54 kg/m2 Christ[facility] Dias MD [facility] 12-16-2023 13:55-0500 Body weight 111.13 kg Christy Dias MD Work [facility] 12-16-2023 13:55-0500 Diastolic blood pressure 70 mm[Hg] Christy Dias MD Work Phone: [facility] 12-16-2023 13:55-0500 Heart rate 103 /min Christy Dias MD [facility] 12-16-2023 13:55-0500 SaO2% (BldA) [Mass fraction] 100 % Christy Dias MD [facility] 12-16-2023 13:55-0500 Systolic blood pressure 90 mm[Hg] Christy Dias MD Work Phone: [facility] 06-01-2022 23:36-0400 Body temperature 98.4 [degF] PLANT CONTROLS SPECIALIST-C Lalitha Kayla Work Phone: [facility] 06-01-2022 23:36-0400 Diastolic blood pressure 80 mm[Hg] PLANT CONTROLS SPECIALIST-C Lalitha Kayla Work Phone: [facility] 06-01-2022 23:36-0400 Heart rate 80 /min PLANT CONTROLS SPECIALIST-C Lalitha Kayla Work Phone: [facility] 06-01-2022 23:36-0400 Respiratory rate 20 /min PLANT CONTROLS SPECIALIST-C Lalitha Kayla Work Phone: [facility] 06-01-2022 23:36-0400 SaO2% (BldA) [Mass fraction] 98 % PLANT CONTROLS SPECIALIST-C Lalitha Kayla Work Phone: [facility] 06-01-2022 23:36-0400 Systolic blood pressure 166 mm[Hg] PLANT CONTROLS SPECIALIST-C Lalitha Kayla Work Phone: [facility] Encounters Encounter Date Encounter Type Care Provider Facility Start: 12-25-2023 Telephone encounter Chico johnston RN [facility] Comment on above: Echo pending insuran ce Start: 12-16-2023 End: 12-16-2023 ambulatory CHRISTY DIAS [facility] Start: 12-16-2023 End: 12-16-2023 Office consultation new/estab patient 40 min Christy Dias MD Work Phone: [facility] Comment on above: Hx of CABG (Primary Dx); Coarctation of aorta Start: 12-15-2023 Chart abstracting Scanning Pro vider External [facility] Start: 12-15-2023 [facility] Start: 11-26-2023 Telephone encounter Isela beltran [facility] Start: 09-28-2023 ambulatory Facility:[facility] Start: 06-16-2023 ambulatory Torres ROLLINS Facility: [facility] Start: 10-23-2022 End: 10-23-2022 ambulatory LALITHA GIBSON Facility:[facility] Start: 06-01-2022 End: 06-02-2022 Emergency department patient visit PLANT CONTROLS SPECIALIST-Valerie Gibson Work Phone: [facility] Start: 03-25-2022 ambulatory LALITHA GIBSON Facility: [facility] Start: 02-27-2022 End: 02-28-[address] MASHA ALBRECHT Facility:[facility] Start: 04-14-2018 Ambulatory Kishor Fraga Facil [id number]:[id number] Procedures Date Procedure Procedure Detail Performing Clinician Start: 12-16-2023 Ecg routine ecg w/le ast 12 lds w/i&r Christy Dias MD Work Phone: Start: 06-01-2022 X-ray of right ankle PLANT CONTROLS SPECIALIST -Valerie Lalitha Gibson Work Phone: History of coronary artery bypass grafting Hx of CABG Christy Dias MD Work Phone: Plan of Treatment Date Care Activity Detail Author Start: 12-16-2024 Adult BMI Screening Adult BMI Screen ing [facility] [employer] Start: 12-16-2024 [facility] Start: 01-20-2024 End: 01-20-2024 Patient encounter procedure [facility] Start: 12-16-2023 End: 12-16-2024 Echo complete W/O contrast Echo complete W/O contrast Echocardiography Routine Coarctation of aorta Expected: 12/16/2023, Expires: 12/16/2024 xiao qu wu you Work Phone: Comment on above: Expected: 12/16/2023 , Expires: 12/16/2024 Start: 12-16-2023 End: 12-16-2024 Holter monitor study Holter monitor 24-48 hour Cardiac Services Routine Coarctation of aorta Expected: 12/16/2023, Expires: 12/16/2024 [facility] [employer] Comment on above: Expected: 12/16/2023 , Expires: 12/16/2024 Start: 12-16-2023 End: 12-16-2023 Patient encounter procedure 12/16/2023 2:00 PM EST Office Visit [facility] [address] [place] [address] Christy Dias MD [address] [place] [address] [facility] Start: 07-03-2023 Influenza vaccination Influenza Vaccine [facility] Start: 06-21-2023 DTaP,Tdap and Td Vaccines (6 - Td or Tdap) DTaP,Tdap and Td Vaccines (6 - Td or Tdap) [facility] Start: 2022 Screening for malignant neoplasm of cervix Pap Smear [facility] Start: 2020 DTaP,Tdap and Td Vaccines (1 - Tdap) DTaP,Tdap and Td Vaccines (1 - Tdap) [facility] Start: 2019 Adult BMI Follow Up Plan Adult BMI Follow Up Plan [facility] Start: 2019 Adult BMI Screening Adult BMI Screen ing [facility] Start: 2013 Depression Screening Depression Scre ening [facility] Start: 2013 Tobacco Screening Tobacco Screening [facility] Start: 2001 Tobacco Counseling Tobacco Counselin g [facility] Patient Education How to Use Cru tches Walking Boot Ankle Sprain ED [facility] Work Phone: Patient referral [facility] Work Phone: POCT EKG POCT EKG ECG Rou isidra Hx of CABG 12/16/2023 [facility] Immunizations Immunization Date Immunization Notes Care Provider Fa cility 08-04-2017 influenza virus vaccine, unspecified formulation Christy Dias MD Work Phone: [facility] Payers Date Payer Category Payer Medicaid [id number] 2023 Medicaid [employer] O [id number] 2023-Present [phone] [address] [place] [address] [id number] 2001 Unknown [id number] 593 2001 Unknown [id number]. 593 2001 Unknown [id number]. 593 2001 Unknown [id number] [id number]. 593 2001 Unknown [id number] [id number]. 1286 1972 Unknown [id number] [id number]. 727 1959 Unknown [id number] 1959 Unknown [id number] [facility] e ( and others) [facility] [id number] Self-pay Self Pay [id number] Unknown Insurance No Card [id number] Social History Date Type Detail Facility Start: 06-01-2022 Tobacco smoking status WYIS Never smoked tobacco (finding) [facility] Start: 2000 Sex Assigned At Female F [facility] Tobacco smoking status [facility] Tobacco smoking consumption unknown [facility] Start: 2000 Sex Assigned At Not on file [facility] Start: 12-15-2023 End: 12-16-2023 Gender identity Not on file [facility] Start: 12-15-2023 Tobacco smoking status NHIS Smokes tobacco daily [facility] History of tobacco use Cigarette Smoker [facility] Start: 12-15-2023 Tobacco use and exposure Smokeless tobacco non-user [facility] Start: 12-15-2023 End: 12-16-2023 History of Social function [facility] Start: 12-16-2023 Alcohol intake Lifetime non-d ulisses (finding) [facility] Within the past 12 months we worried whether our food would run out before we got money to buy more. Never True [facility] Clinical Notes 11-26-2023 to 12-25-2023 Telephone Encounter - Chico Carmona RN - 12/25/2023 1:30 PM ESTTelephone Encounter - Chico Carmona RN - 12/25/2023 1:30 PM Calin Dias MD - 12/16/2023 2:00 PM EST Note Date & Type Note Facility 12-25-2023 Miscellaneous Notes Received message from Lurdes at [facility] Patient: Betsy Sawyer; 2000 ECHO pending/ needing additional info. Per [facility], looking for: Most recent EKG report showing a problem & TTE 05/16/2019 (last TTE completed) and Plan Holter Monitor - request results Tracking# [id number] P2P# [phone] Patient scheduled for holter monitor on 01/20/24 Stereoptician called [facility], spoke to Shantel regarding p2p Tracking# [id number]. Call REF# [id number] Echo is currently in specialist review; no P2P needed yet. Call REF# [id number] They need updated information faxed to : Fax number [phone] w/tracking number [facility]ur[facility] ying precert already sent the last ov note and EKG done. Stereoptician does not see any additional test results. Stereoptician attempted to call patient, phone rings and hangs up. LMOM on pts moms phone (no -HIPAA) asking her to have pt r/c to [facility] office to discuss past cardiac testing. 2nd attempt- Stereoptician attempted to call patient with results and leave VM but no VM set up, unable to LMOM. 3rd attempt - Stereoptician attempted to call patient with results and leave VM but no VM set up, unable to LMOM. Need an update from pt on any past testing info (with location) for records to obtain further information to send to [facility] for pending echo. Pts holter and echo scheduled for 01/20/24. Stereoptician called [facility], spoke to Zoya to update. Attempt to contact letter sent to pt. documented in this encounter [facility] 12-25-2023 Telephone encounter Note Received message from Lurdes at [facility] Patient: Betsy Sawyer; 2000 ECHO pending/ needing additional info. Per [facility], looking for: Most recent EKG report showing a problem & TTE 05/16/2019 (last TTE completed) and Plan Holter Monitor - request results Tracking# [id number] P2P# [phone] Patient scheduled for holter monitor on 01/20/24 [facility] 12-25-2023 Telephone encounter Note Stereoptician called [facility], spoke to Shantel regarding p2p Tracking# [id number]. Call REF# [id number] Echo is currently in specialist review; no P2P needed yet. Call REF# [id number] They need updated information faxed to : Fax number [phone] w/tracking number Lurdes stepan cordoba already sent the last ov note and EKG done. Stereoptician does not see any additional test results. [facility] 12-25-2023 Telephone encounter Note Stereoptician attempted to call patient, phone rings and hangs up. LMOM on pts moms phone (no -HIPAA) asking her to have pt r/c to [facility] office to discuss past cardiac testing. [facility] 12-25-2023 Telephone encounter Note 2nd attempt- Stereoptician attempted to call patient with results and leave VM but no VM set up, unable to LMOM. [facility] 12-25-2023 Telephone encounter Note 3rd attempt - Stereoptician attempted to call patient with results and leave VM but no VM set up, unable to LMOM. Need an update from pt on any past testing info (with location) for records to obtain further information to send to [facility] for pending echo. Pts holter and echo scheduled for 01/20/24. Stereoptician called [facility], spoke to Zoya to update. Attempt to contact letter sent to pt. [facility] 12-16-2023 History of Presen t illness Narrative Betsy Sawyer Date of visit: 12/16/2023 Date of : 2000 Age: 23 y.o. There is no problem list on file for this patient. No Known Allergies No current outpatient medications on file. No current facility-administered medications for this visit. Chief Complaint Patient presents with New Patient PLANT CONTROLS SPECIALIST PT STATES SHE HAD OPEN HEART SURGERY @ AGE 3 [place] [facility] NO TESTS SCHED W/PT History of Present Illness Patient following up for history of coarct repair at the age of 3 she went to [facility] and had a surgical repair of her [...] scheduled for holter monitor and echo at [facility] 01/20/24 documented in this encounter [facility] 12-16-2023 Instructions Mel Keller CMA - 12/16/2023 2:00 PM EST Are You Ready To Kick The Habit? Free Tobacco Cessation Resources [facility] Services [facility] provide all employees with free tobacco cessation services that include: Counseling to understand nicotine addiction Education about medications that can help you successfully quit Assistance with developing a plan to quit Call to set up an individual appointment or find out when group classes will be held: Mathew rader [facility]: [phone] [facility]: [phone] [facility]: [phone] [facility]: [phone] Quit Smoking Action Plan and Resources [facility] offers an eight-week, online smoking cessation plan to all [facility] employees, regardless of whether [place] is your medical insurance provider. Go to www.mypromedica.org/employeewel lness and click the Health Risk Assessment and Resources link to get started. In the [employer] menu, click Action Plans instead of Health Risk Assessment to access the Quit Smoking Action Plan. Additional smoking cessation resources are also available to all [facility] employees on the [employer] web page at www.[employer]PetWorld/stu hernandez. [place] Tobacco Cessation Program If [place] is your medical insurance provider, there are more free resources available to you, including: No copays or deductibles on local tobacco cessation counseling services to help you quit Prescription assistance for tobacco cessation medications to help you quit For details about the tobacco cessation program available to [place] members, go to www.[employer] (Search: Tobacco Cessation Program). [place] Tobacco Quit Line 8-487-UKGI-NOW ( ) is a toll-free, telephonic service that helps [place] residents quit smoking and using tobacco. It is staffed by experts who tailor a quit plan for you and provide you with advice. [place] Tobacco Quit Line 9-496-BMUO-NOW ( ) is a toll-free, telephonic service that helps [place] residents quit smoking and using tobacco. It is staffed by experts who tailor a quit plan for you and provide you with advice. Two weeks of nicotine replacement therapy may be provided at no charge, if needed. Additional Resources These national organizations also offer free information and resources to help you quit tobacco: [place] [employer]--www.cancer.org/healthy /stayawayfromtobacco [place] [employer]--www.heart.org (Search: Quit Smoking) Centers for Disease Control and Prevention--www.cdc.gov/tobacco [place] [employer]--www.lungusa.org documented in this encounter [facility] 12-15-2023 Miscellaneous Notes Left message for patient to remind them to bring their most current medication list with them to their appointment. documented in this encounter [facility] 12-15-2023 Telephone encounter Note Left message for patient to remind them to bring their most current medication list with them to their appointment. [facility] 11-26-2023 Miscellaneous Notes Patient called the office to schedule a biopsy stating [facility] & [facility] told her she needed a biopsy. I told the patient I would get her reports & check with our provider and I could call her back. I called the [facility] to get patient notes & results. Received visit note & pap results from 09/01/23 & scanned into patient's media. Does the patient need to be scheduled for a colposcopy? Please advise. Thank you. LVM for patient to return office call Pt returned call and was notified of not needing a colpo at this time. documented in this encounter [facility] 11-26-2023 Telephone encounter Note Patient called the office to schedule a biopsy stating [facility] & they told her she needed a biopsy. I told the patient I would get her reports & check with our provider and I could call her back. I called the [facility] to get patient notes & results. Received visit note & pap results from 09/01/23 & scanned into patient's media. Does the patient need to be scheduled for a colposcopy? Please advise. Thank you. [facility] 11-26-2023 Telephone encounter Note LVM for patient to return office call [facility] 11-26-2023 Telephone encounter Note Pt returned call and was notified of not needing a colpo at this time. [facility] Evaluation note No assessment inform ation available [facility] Work Phone: Evaluation note Diagnosis Hx of CABG- Primary Postsurgical aortocoronary bypass status Coarctation of aorta documented [facility] filedocumented in this encounter [facility]ructionsNot on filedocumented in this encounter [facility] on filedocumented in [facility] encounter [facility] Summary Purpose Family History No Family [...] MD [address] [facility] [place] [address] [facility] [address] [place] [address] Phone: [phone] Referral ID Status Reason Start Date Expiration Date V isits Requested Visits Authorized [id number] Pending Review 12/16/2023 12/15/2024 1 1 Specialty Diagnoses / Procedures Referred By Carmella molina Referred To Contact Diagnoses Coarctation of aorta Procedures Echo complete W/O contrast Christy Dias MD [address] [place] [address] [facility] [address] [place] [address] Phone: [phone] Referral ID Status Reason Start Date Expiration Date V isits Requested Visits Authorized [id number] Pending Review 12/16/2023 12/15/2024 1 1 Additional Source Comments INFORMATION SOURCE (unrecogn ized section and content) DATE CREATED AUTHOR 04/20/2018 [employer] DATE CREATED AUTHOR AUTHOR'S ORGANIZ ATION 04/20/2018 [facility] DATE CREATED AUTHOR AUTHOR'S ORGANIZ ATION 06/12/2022 [facility] DATE CREATED AUTHOR AUTHOR'S ORGANIZ ATION 10/25/2022 [facility] DATE CREATED AUTHOR AUTHOR'S ORGANIZ ATION 06/26/2023 [facility] DATE CREATED AUTHOR AUTHOR'S ORGANIZ ATION 10/04/2023 [facility] DATE CREATED AUTHOR AUTHOR'S ORGANIZ ATION 12/18/2023 [facility] Care Teams (unrecognized sec tion and content) Team Status: Inactive Member Role Status Dates Lalitha Gibson NP-C Primary Care Provider Active Christy Maher Jr, MD Emergency Provider Active Team Status: Active Member Role Status Dates Lalitha Gibson NP-C Primary Care Provider Active [employer] Relationship Specialty Start Date End Date Lalitha Gibson APRN-CNP [address] [place] [id number] [phone] PCP - General Family Medicine 12/16/23 [employer] Relationship Specialty Start Date End Date Lalitha Gibson APRN-CNP [address] [place] [address] PCP - General Family Medicine 12/16/23 Goals (unrecognized section and content) Goals may be documented in a n alternate sectionNot on filedocumented as of this encounterNot on filedocumented as of this encounterNot on filedocumented as of this encounterNot on filedocumented as of this encounterNot on filedocumented as of this encounter Reason for Visit (unrecogniz ed section and content) Reason Comments 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 [facility]. provides no warranty or guarantee of the accuracy or completeness of information in this document.
[2025-01-11 11:35] LABS: Basophils Percent Auto 0.5 % (0.2-2.0); Eosinophils Absolute Auto 0.2 10^3/uL (0.0-0.7); Eosinophils Percent Auto 2.6 % (0.9-7.0); Hematocrit 41.3 % (36.0-48.0); Hemoglobin 13.3 g/dL (12.0-16.0); Lymphocytes Absolute Auto 1.6 10^3/uL (1.2-3.8); Lymphocytes Percent Auto 28.5 % (20.5-60.0); Mean Corpuscular HGB Conc 32.2 g/dL (29.9-35.2); Mean Corpuscular Hemoglobin 29.2 pg (26.7-34.0); Mean Corpuscular Volume 90.8 fL (81.0-99.0); Mean Platelet Volume 10.1 fL (9.5-13.5); Monocytes Absolute Auto 0.6 10^3/uL (0.3-0.8); Monocytes Percent Auto 9.7 % (1.7-12.0); Neutrophils Absolute Auto 3.3 10^3/uL (1.4-6.5); Neutrophils Percent Auto 58.7 % (43.0-75.0); Platelet Count 290 10^3/uL (150-450); Red Blood Count 4.55 10^6/uL (4.20-5.40); Red Cell Distribution Width 12.1 % (11.0-15.0); White Blood Count 5.7 10^3/uL (4.0-11.0)
[2025-01-11 11:51] LABS: Estimated Average Glucose 103 mg/dL; Glycohemoglobin A1C 5.2 % (4.5-6.2)
[2025-01-11 11:57] LABS: HCG Qualitative NEGATIVE (NEGATIVE); Internal Control Within Normal Limits
[2025-01-11 12:05] LABS: Alanine Aminotransferase 34 U/L (14-59); Albumin Globulin Ratio 0.9; Albumin Level 3.3 g/dL (3.4-5.0); Alkaline Phosphatase 84 U/L (46-116); Anion Gap 11.6; Aspartate Amino Transferase 22 U/L (15-37); BUN Creatinine Ratio 8.5; Bilirubin Total 0.5 mg/dL (0.2-1.0); Chloride 105 mmol/L (98-107); Chol HDL Ratio 3.4; Cholesterol 205 mg/dL (<=200); Estimated GFR (African America >60 (>=60 mL/min/1.73m^2); Estimated GFR (Non-African Ame >60 (>=60 mL/min/1.73m^2); Free T3 3.04 pg/mL (2.18-3.98); Globulin 3.5 g/dL; Glucose 86 mg/dL (74-106); HDL Cholesterol 60 mg/dL (40-60); Potassium 3.6 mmol/L (3.5-5.1); Sodium 139 mmol/L (136-145); Total Protein 6.8 g/dL (6.4-8.2); Triglycerides 81 mg/dL (<=150); VLDL CHOLESTEROL 16.2 mg/dL
[2025-01-12 04:07] LABS: Insulin 17.4 uIU/mL (2.6-24.9); Measles Antibodies, IgG <13.5 AU/mL (Immune >16.4); Mumps Abs, IgG <9.0 AU/mL (Immune >10.9); Rubella Antibodies, IgG <0.90 index (Immune >0.99)
== END 2025-01-11 10:58 | disposition home or self-care (01) ==
PROVIDERS: PCP Nurse Practitioner Family; Visit Provider Nurse Practitioner Family
DX: Z00.00 Encounter for general adult medical examination without abnormal findings (principal); Z78.9 Other specified health status
CPT/HCPCS: 36415; 80053; 80061; 82306; 83036; 83525; 83540; 84436; 84443; 84481; 84703; 85025; 86735; 86762; 86765